=== PATIENT | female | born 1985 | race Caucasian/White ===

== ENCOUNTER 2019-11-04 13:27 | Emergency (ER) | payer BC, OTHER, SELFPAY ==
[2019-11-04 13:35] VITALS: BP 159/111; PULSE 126; RESP 18; TEMP 36.9; O2SAT 98; BMI 32.5
--- NOTE | 2019-11-04 14:14 | HMH.EDEAR ---
ED Disposition Clinical Impression: Otitis media Disposition: Home, Self-Care Condition on Discharge: Good Instructions: DI for Otitis Media (Middle Ear Infection)-Child Prescriptions: Amoxicillin/Potassium Clav [Augmentin 875-125 Tablet] 1 tab PO Q12H 10 Days #20 tab Prescription Printed Ketorolac Tromethamine [Toradol 10mg tablet] 10 mg PO Q4H 5 Days #20 tab Prescription Printed Referrals: Tatiana Moses APRN [Primary Care Provider] - - Critical Care Critical Care Time: No Attestation: On 11/04/19, the high probability of a clinically significant, sudden or life threatening deterioration of the following system(s) required my full and direct attention, intervention and personal management. The time I documented below is in addition to time spent performing reported procedures but includes the following listed in this critical care notation. Medical Decision Making - Medical Records Medical records reviewed: Yes: I reviewed the patient's medical records. - Yunier Inquiry Pt receiving controlled substance: No Vital Signs: 11/04/19 13:35 Temperature 98.4 F Temperature Source Oral Pulse Rate [Right Radial] 126 H Respiratory Rate 18 Blood Pressure [Right Arm] 159/111 H Blood Pressure Mean [Right Arm] 127 Blood Pressure Source [Right Arm] Automatic Cuff Blood Pressure Position [Right Arm] Sitting 02 Sat by Pulse Oximetry 98 Oxygen Delivery Method Room Air - Lab Data Lab results reviewed: Yes: I reviewed the patient's lab results. Ear HPI - General Chief complaint: Ear Stated complaint: severe R ear pain and nausea Time Seen by Provider: 11/04/19 14:15 Mode of Arrival: Ambulatory Source of Information: Patient Limitations: No Limitations Description of Symptoms (Recalled from ER Triage Doc. by RN): Pt c/o R ear pain x4 days and nauesa x2 days. Pt reports her ear feels clogged up - History of Present Illness HPI Narrative: 34-year-old female presents the ED with excessive right ear pain. She states that the ear pain started couple days ago and is progressively gotten worse until she presented here to the ED. Patient denies any fever patient denies any nausea or vomiting patient denies any sore throat or cough or shortness of breath. She states that the ear pain is 7 out of 10 classifies it as sharp. She also states that she has decreased hearing in that ear as well. She says the only alleviating factor she gets is applying heat directly to the ear. - Related Data Home Medications Medication Instructions Recorded Confirmed Amitriptyline HCl [Elavil 50mg 50 mg PO DAILY 11/04/19 11/04/19 tablet] Pregabalin [Lyrica 300mg Cap] 300 mg PO BID 11/04/19 11/04/19 Quetiapine Fumarate [Seroquel] 100 mg PO HS 11/04/19 11/04/19 Previous Rx's Medication Instructions Recorded Amoxicillin/Potassium Clav 1 tab PO Q12H 10 Days #20 tab 11/04/19 [Augmentin 875-125 Tablet] Ketorolac Tromethamine [Toradol 10 mg PO Q4H 5 Days #20 tab 11/04/19 10mg tablet] Allergies Allergy/AdvReac Type Severity Reaction Status Date / Time No Known Allergies Allergy Unverified 07/12/18 12:18 [facility] History - Hepatitis A Screen Drug use history?: No High risk sexual behaviors?: No History of sexually transmitted infection?: No Currently employed?: No Childcare worker?: No Do you have indoor plumbing?: Yes Do you have electricity?: Yes Attestation statement:: This patient has been screened for Hepatitis A risk factors. I have reviewed the patient's past medical history: Yes Medical History: Denies:: Diabetes Mellitus Type 1, Diabetes Mellitus Type 2 Other Surgeries: Yes: No Previous Surgery - Social History Smoking Status: Current every day smoker Tobacco Type: cigarettes # Packs/Day (cigarettes): 10 Alcohol Intake: never Substance Use Type: former substance user Occupational Status: employed Housing: house Household Members: family Family Hx:: Cancer, Hypertensi
[2019-11-04 14:52] VITALS: BP 159/111; PULSE 126; RESP 18; TEMP 36.9; O2SAT 98
== END 2019-11-04 14:52 | disposition home or self-care (01) ==
PROVIDERS: Emergency Provider Family Medicine; PCP Nurse Practitioner
DX: H66.91 Otitis media, unspecified, right ear (principal); F17.210 Nicotine dependence, cigarettes, uncomplicated
CPT/HCPCS: 96372; 99281

== ENCOUNTER → 2019-12-17 12:49 | Outpatient (POV) | payer BC, OTHER, SELFPAY ==
[2019-12-17 13:26] VITALS: BP 185/89; PULSE 118; RESP 18; TEMP 36.8; O2SAT 99; BMI 34.0
--- NOTE | 2019-12-18 08:52 | HMH.PMCON ---
Assessment and Plan (1) Neuropathy Current visit: Yes Status: Chronic Category: Medical Code(s): G62.9 - Polyneuropathy, unspecified - Assessment and plan all Dx Assessment and Plan for all problems:: I will try to get some neurology notes from the patient and along with her nerve conduction study. We will need additional information to talk about a neurostimulator. I did give her information in regards to Bench neurostimulator system. We will also schedule her for an MRI just to help determine any underlying pathology. I will follow-up with the patient after her MRI reassess her symptoms at that time she is been instructed to call the office if she has any issues prior to her next appointment. Dr. Day has reviewed this note and agrees with this plan of care. This note was dictated using voice recognition software and may contain errors or omissions HPI - Data of Consult Consult date: 12/17/19 Requesting Physician: Tawnya Gordon APRN Primary Care Provider: Derrick Beltran MD - Consult Narrative Reason for consult: Neuropathy History of present illness: Ms. Cortes is a 34 year old female who presents today for consultation in regards to her bilateral lower extremity and bilateral upper extremity neuropathy. Patient has quite a myriad of issues for several years. Patient states she has had pain since 2012. She had a fasciotomy of her right leg. Patient had a heroin overdose several years ago. Patient states that she is not diabetic she also states that she has been seeing neurology for quite some years in regards to her nerve related pain she states she has a nerve conduction study however she does not have those records. Patient has never had an MRI according to her in regards to her lower back. Patient states most of her pain is in her lower extremities from the knees down she has burning numbness tingling swelling. She is also having the same issue in regards to her neck and her bilateral arms patient currently on Lyrica from Dr. Shaina Alvarenga. She states that she has been up to over 900 mg of Lyrica a day. I do not have records in regards to this. Patient is also been on [place] from her dentist several times a month since September. CC: Tawnya Gordon APRN [facility] History I have reviewed the patient's past medical history: Yes Medical History: Denies:: Diabetes Mellitus Type 1, Diabetes Mellitus Type 2 *Have you ever received a pneumonia vaccine?: Yes *Have you received a flu vaccine this season?: Yes Other Surgeries: Yes: No Previous Surgery Amputation: No Fractures: No - *Social History Smoking Status: Current every day smoker Tobacco Type: cigarettes # Packs/Day (cigarettes): 10 Alcohol Intake: never Substance Use Type: former substance user *Occupational Status:: other Housing: house Household Members: other *Travel in the last 8 weeks: None Family Hx:: Unable to obtain Review of Systems - Review of Systems ROS General: no recent weight change, no fever, no sleep disturbances Respiratory: no cough, no shortness of air, no recurring pulmonary infections Cardiovascular/Peripheral Vascular: No chest pain, No palpitations, no edema, no shortness of breath. Gastrointestinal: no new onset incontinence, normal bowel movements reported Genitourinary: no new onset incontinence Musculoskeletal: Bilateral leg pain Psychiatric: normal mood/ affect, Neurological: Nerve pain bilateral lower extremities and bilateral upper extremities, [denies new onset balance issues] Meds Home Medications Medication Instructions Recorded Confirmed Type Amitriptyline HCl [Elavil 50mg 50 mg PO DAILY 11/04/19 11/04/19 History tablet] Amoxicillin/Potassium Clav 1 tab PO Q12H 10 Days #20 tab 11/04/19 Rx [Augmentin 875-125 Tablet] Ketorolac Tromethamine [Toradol 10 mg PO Q4H 5 Days #20 tab 11/04/19 Rx 10mg tablet] Pregabalin [Lyrica 300mg Cap] 300 mg PO BID 11/04/19
== END ==
PROVIDERS: PCP Internal Medicine Adolescent Medicine; Visit Provider Clinical Nurse Specialist Family Health
DX: G62.9 Polyneuropathy, unspecified (principal)
CPT/HCPCS: 99202

== ENCOUNTER → 2020-01-03 13:40 | Outpatient (CLI) | payer OTHER, SELFPAY ==
--- NOTE | 2020-01-03 13:45 | MR_ITS ---
PROCEDURE: MR LUMBAR SPINE WO CON CLINICAL INDICATION: BACK PAIN Leg pain, numbness, and tingling. X 8 years. No trauma. No prior. COMPARISON: No exams were available for comparison TECHNIQUE: Standard multiplanar multiecho sequences are performed without contrast. 3-D MIP and myelographic images are also rendered and reviewed FINDINGS: There is normal alignment. The spinal cord ends at the T11-T12 level. T12-L1: Small right paracentral disc protrusion with mild degenerative disc disease without impingement. L1-L2: Mild endplate irregularity. Mild degenerative disc disease. L2-L3: Unremarkable. L3-L4: Unremarkable. L4-5: Minimal concentric bulging disc with mild facet ligamentum hypertrophy. L5-S1: Mild facet hypertrophic change. No canal stenosis or extruded herniated disc evident. IMPRESSION: Mild lumbar spondylosis as described above with small right paracentral disc protrusion at T12-L1. No canal stenosis or extruded herniated disc. Dictated by: Lance Barron MD 01/05/2020 12:06 Electronically signed by Lance Barron MD in [place] 01/05/2020 12:06
== END ==
PROVIDERS: PCP Internal Medicine Adolescent Medicine; Visit Provider Clinical Nurse Specialist Family Health
DX: M54.5 Low back pain (principal)
CPT/HCPCS: 72148; 76376

== ENCOUNTER → 2020-01-07 09:07 | Outpatient (POV) | payer OTHER, BC, SELFPAY ==
[2020-01-07 09:20] VITALS: BP 158/82; PULSE 112; RESP 18; TEMP 36.2; O2SAT 98; BMI 32.5
--- NOTE | 2020-01-07 09:25 | HMH.PAINSOAP ---
[facility] Pain Management SOAP Note Subjective:: Patient is a pleasant 34-year-old white female who presents today for follow-up after lumbar MRI. The MRI did have some degenerative type changes and minimal bulging disks. Patient's main complaint of pain is her lower extremity pain. Worse on the right side. Patient has been struggling with pain since her 2014 fasciotomy. Patient had this secondary to compartment syndrome in her right leg. Patient has numbness tingling burning at all times in her lower extremity and also has swelling color changes and temperature changes to that extremity as well. Patient has allodynia where she is unable to have certain clothing or shower water touch her leg. Patient and I had a long discussion about neuro stimulation. She is interested in moving forward with this. I do believe that it would benefit her long-term. Given her age and drug history she is not a candidate for any other additional medications nor an intrathecal pain pump. But she has tried and failed over the last 6 years Lyrica/gabapentin/Cymbalta/amitriptyline/Seroquel. She rates her pain today a 6 out of 10. She has abnormal nerve conduction studies. ROS General: no recent weight change, no fever, no sleep disturbances Respiratory: no cough, no shortness of air, no recurring pulmonary infections Cardiovascular/Peripheral Vascular: No chest pain, No palpitations, no edema, no shortness of breath. Gastrointestinal: no new onset incontinence, normal bowel movements reported Genitourinary: no new onset incontinence Musculoskeletal: Right lower extremity pain, left lower extremity pain at times Psychiatric: normal mood/ affect Neurological: [denies new onset weakness in extremities], [denies new onset balance issues] extreme sensitivity right lower extremity Objective:: Physical Exam General: Alert and oriented x3, no acute distress, pleasant and cooperative, [on room air] Lungs: Resps E/U, Symmetrical chest expansion, Eyes: PERRL Musculoskeletal: Flexion and extension of lumbar spine somewhat guarded secondary to pain, deep tendon reflexes normal, strength in upper and lower extremities [5/5], antalgic gait noted Neurological: speech clear, 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 Patient and I had a long discussion in regards to the process in which a neurostimulator trial and implant takes. Patient's not on any anticoagulation therapy. She understands the risks and benefits of the procedure. I will follow-up with her after this reassess her symptoms at that time she has been instructed to call the office if she has any issues prior to next appointment. We will utilize a [employer] system. Dr. Day has reviewed this note and agrees with this plan of care. This note was dictated using voice recognition software and may contain errors or omissions [facility] History I have reviewed the patient's past medical history: Yes Medical History: Denies:: Diabetes Mellitus Type 1, Diabetes Mellitus Type 2 *Have you ever received a pneumonia vaccine?: Yes *Have you received a flu vaccine this season?: Yes Other Surgeries: Yes: No Previous Surgery Amputation: No Fractures: No - *Social History Smoking Status: Current every day smoker Tobacco Type: cigarettes # Packs/Day (cigarettes): 10 Alcohol Intake: never Substance Use Type: former substance user *Occupational Status:: other Housing: house Household Members: other *Travel in the last 8 weeks: None Family Hx:: Unable to obtain
== END ==
PROVIDERS: PCP Internal Medicine Adolescent Medicine; Visit Provider Clinical Nurse Specialist Family Health
DX: G90.521 Complex regional pain syndrome I of right lower limb (principal); G62.9 Polyneuropathy, unspecified
CPT/HCPCS: 99212

== ENCOUNTER → 2020-01-21 15:21 | Outpatient (CLI) | payer BC, OTHER, SELFPAY ==
--- NOTE | 2020-01-21 15:22 | US_ITS ---
PROCEDURE: US TRANSVAGINAL CLINICAL INDICATION: Right lower quadrant pain COMPARISON: No exams were available for comparison FINDINGS: UTERUS: 6cm x 4cmx 4cm with a combined endometrial thickness of 2.7mm LEFT OVARY: [id number] with a volume of 5.2ml. RIGHT OVARY: [id number] with a volume of 2.9ml. No adnexal mass or cul-de-sac fluid evident. IMPRESSION: Negative pelvic ultrasound Dictated by: Lance Barron MD 01/22/2020 07:33 Electronically signed by Lance Barron MD in [place] 01/22/2020 07:33
== END ==
PROVIDERS: PCP Internal Medicine Adolescent Medicine; Visit Provider Nurse Practitioner Obstetrics & Gynecology
DX: R10.31 Right lower quadrant pain (principal)
CPT/HCPCS: 76830

== ENCOUNTER 2020-02-13 15:23 | Emergency (ER) | payer OTHER, SELFPAY ==
[2020-02-13 15:29] VITALS: BP 162/111; PULSE 128; RESP 17; TEMP 37.2; O2SAT 96; BMI 34.0
--- NOTE | 2020-02-13 15:45 | HMH.EDUTC ---
[facility] Disposition Clinical Impression: Viral syndrome, Bronchitis Disposition: Home, Self-Care Condition on Discharge: Good Instructions: DI for Viral Syndrome Additional Instructions: Drink plenty of fluids. Take tylenol or ibuprofen for pain or fever. Take the medications as directed. Follow up with your regular doctor. GO TO THE ER FOR ANY WORSENING SYMPTOMS FOLLOW THE DIRECTIONS ON THE COVID-19 HAND OUT THAT WE GAVE YOU REGARDING SELF-ISOLATION UNTIL YOU KNOW YOUR COVID-19 RESULTS Prescriptions: Brompheniramine/Pseudoephed/Dm [Bromfed Dm Cough Syrup] 5 ml PO Q6HP PRN #240 syrup PRN Reason: Cough Transmission Status: Received by [facility] Ondansetron [Zofran 4mg ODT] 4 mg PO Q8HP PRN #20 tab.rapdis PRN Reason: Nausea Transmission Status: Received by [facility] Azithromycin [Z-Nando 250mg Tab*] 250 mg PO UD DOSE PK #6 tab Transmission Status: Received by [facility] Referrals: Derrick Beltran MD [Primary Care Provider] - Forms: Work/School Release Time of Disposition: 16:32 Medical Decision Making - Medical Records Medical records reviewed: No: I reviewed the patient's medical records. - Yunier Inquiry Pt receiving controlled substance: No Vital Signs: 02/13/20 15:29 02/13/20 15:53 02/13/20 16:59 Temperature 98.9 F 98.9 F 98.9 F Temperature Source Oral Oral Pulse Rate 127 H Pulse Rate [Right Brachial] 128 H 127 H Respiratory Rate 17 24 24 Blood Pressure 146/94 H Blood Pressure [Right Arm] 162/111 H 146/94 H Blood Pressure Mean [Right Arm] 128 111 Blood Pressure Source [Right Arm] Automatic Cuff Blood Pressure Position [Right Arm] Sitting 02 Sat by Pulse Oximetry 96 97 Oxygen Delivery Method Room Air Room Air - Lab Data Lab results reviewed: Yes: I reviewed the patient's lab results. Orders (Tests/Meds): ED MEDICATIONS Discontinued Medications Generic Name Dose Route Start Last Admin Trade Name Freq PRN Reason Stop Dose Admin Ceftriaxone Sodium 1 gm 02/13/20 16:32 02/13/20 16:46 Rocephin 1gm Vial IM 02/13/20 16:33 1 gm ONCE ONE Administration Protocol Lidocaine HCl 0 ml 02/13/20 16:32 02/13/20 16:46 Lidocaine 1% 10ml Mdv IM 02/13/20 16:33 2.1 ml ONCE ONE Administration [facility] HPI - General Stated complaint: Sore throat, sinus congestion Time Seen by Provider: 02/13/20 15:45 Mode of Arrival: Ambulatory Source of Information: Patient Limitations: No Limitations Description of Symptoms (Recalled from Triage Doc. by RN): pt presents to ed triage with c/o cough, congestion, body aches and overall not feeling well since tuesday. no known covid exposure. - History of Present Illness Provider Complaint: She c/o sinus congestion, cough, and feeling very bad for the past 3 days. - Related Data Home Medications Medication Instructions Recorded Confirmed Amitriptyline HCl [Elavil 50mg 50 mg PO DAILY 11/04/19 01/10/20 tablet] Pregabalin [Lyrica 300mg Cap] 300 mg PO BID 11/04/19 01/10/20 Quetiapine Fumarate [Seroquel] 100 mg PO HS 11/04/19 01/10/20 duloxetine 60 mg capsule,delayed 60 mg PO cap 01/10/20 01/10/20 release Previous Rx's Medication Instructions Recorded ketorolac 10 mg tablet 10 mg PO Q6H 5 Days #20 tab 01/25/20 Azithromycin [Z-Nando 250mg Tab*] 250 mg PO UD DOSE PK #6 tab 02/13/20 Brompheniramine/Pseudoephed/Dm 5 ml PO Q6HP PRN #240 syrup 02/13/20 [Bromfed Dm Cough Syrup] Ondansetron [Zofran 4mg ODT] 4 mg PO Q8HP PRN #20 tab.rapdis 02/13/20 Allergies Allergy/AdvReac Type Severity Reaction Status Date / Time No Known Allergies Allergy Verified 01/10/20 08:48 [facility] History - Hepatitis A Screen Attestation statement:: This patient has been screened for Hepatitis A risk factors. I have reviewed the patient's past medical history: Yes Medical History: Denies:: Diabetes Mellitus Type 1, Diabetes Mellitus Type 2 Other Surgeries: Yes: No Prev
[2020-02-13 15:53] VITALS: BP 146/94; PULSE 127; RESP 24; TEMP 37.2; O2SAT 97; BMI 34.0
--- NOTE | 2020-02-13 15:58 | XR_ITS ---
PROCEDURE: XR CHEST 2V CLINICAL HISTORY: COUGH COMPARISON: CR CXR1 CHEST-PORTABLE from 03/13/2014 CR CXR1 CHEST-PORTABLE from 05/22/2014 FINDINGS: The cardiomediastinal silhouette and pulmonary vascularity are within normal limits. No lobar consolidation or collapse is evident. There is increased linear markings in the lung base anteriorly suggesting atelectatic or fibrotic change No acute bony abnormalities. IMPRESSION: Minimal atelectatic or fibrotic change in the lung base anteriorly otherwise negative Dictated by: Lance Barron MD 02/13/2020 16:49 Lance Barron MD in [place] 02/13/2020 16:49
[2020-02-13 16:59] VITALS: BP 146/94; PULSE 127; RESP 24; TEMP 37.2; O2SAT 97
== END 2020-02-13 17:02 | disposition home or self-care (01) ==
PROVIDERS: Emergency Provider Nurse Practitioner Family; PCP Internal Medicine Adolescent Medicine
DX: J20.9 Acute bronchitis, unspecified (principal); B34.9 Viral infection, unspecified; Z20.828 Contact with and (suspected) exposure to other viral communicable diseases; F17.210 Nicotine dependence, cigarettes, uncomplicated
CPT/HCPCS: 71046; 96372; 99202; U0003

== ENCOUNTER → 2020-03-24 10:00 | Outpatient (CLI) | payer OTHER, SELFPAY ==
--- NOTE | 2020-03-24 10:10 | XR_ITS ---
PROCEDURE: XR HIP LT 2-3V W/PELVIS CLINICAL INDICATION: left hip pain COMPARISON: No exams were available for comparison FINDINGS: There is some decrease in the hip joint space on both sides which may be due to mild osteoarthritic change. Sclerosis is noted in the left femoral head on the abduction ule view. No obvious subchondral lucencies evident. No fracture or dislocation. IMPRESSION: Minimal osteoarthritic change. There is some. Sclerosis of the femoral head on the left on the abduction ule view. This does raises suspicion of possible avascular necrosis. Consider MRI for further evaluation P Dictated by: Lance Barron MD 03/24/2020 17:32 Lance Barron MD in [place] 03/24/2020 17:32
== END ==
LOC: RAD 10:05
PROVIDERS: PCP Internal Medicine Adolescent Medicine; Visit Provider Orthopaedic Surgery
DX: M25.552 Pain in left hip (principal)
CPT/HCPCS: 73502

== ENCOUNTER → 2020-04-22 13:02 | Outpatient (CLI) | payer OTHER, SELFPAY ==
--- NOTE | 2020-04-22 13:09 | MR_ITS ---
PROCEDURE: MR HIP LT W CON CLINICAL INDICATION: LT hip pain LEFT HIP PAIN WITH BENDING AND TWISTING X6 MONTHS, COMPARISON: CR XR HIP LT 2-3V W/PELVIS from 03/24/2020 DX,RF IR ARTHROGRAM HIP LT from 04/22/2020 TECHNIQUE: Routine multiplanar multi echo sequences are performed following the intra-articular injection of contrast under fluoroscopic guidance. Please see arthrogram report for technique description FINDINGS: The on the T1 weighted images there is some nonspecific decreased signal along the cortex of the femoral head anteriorly and superiorly suggesting some mild sclerosis of the cortex. This is of questionable clinical significance and is not a typical appearance for avascular necrosis. The T2 signal is unremarkable. No fracture or dislocation is evident. There are minimal osteoarthritic changes with minimal early spurring along the femoral head. There is an abnormal area of signal intensity involving the basicervical/intertrochanteric portion of the femoral neck which is mostly hypointense on the T1 weighted images and hyperintense on the T2/stir images with a central nidus of decrease T2 signal intensity. The lesion itself measures 13 mm with a central nidus measuring 5 mm. No obvious labral tear. Incidental note is made of a 3 cm left ovarian cyst. IMPRESSION: 1. The no convincing evidence of avascular necrosis. 2. There is nonspecific decreased T1 signal along the femoral head superiorly and anteriorly which may correspond to bony sclerosis. This is of questionable clinical significance 3. 13 mm stellate appearing mostly cystic lesion in the basicervical/intertrochanteric region of the left femur with a central area of decreased T2 signal. The etiology is uncertain. An osteoid osteoma is a consideration. This could be confirmed with CT and bone scan if clinically desired. Follow-up is suggested. 4. 3 cm left ovarian cyst Dictated by: Lance Barron MD 04/25/2020 10:00 Lance Barron MD in [place] 04/25/2020 10:00
--- NOTE | 2020-04-22 13:15 | IR_ITS ---
PROCEDURE: IR ARTHROGRAM HIP LT CLINICAL INDICATION: L HIP PAIN COMPARISON: MR MR HIP LT W CON from 04/22/2020 FINDINGS: Following obtaining informed consent and time-out procedure under aseptic conditions and local anesthesia with 1 percent buffered lidocaine, a 20 gauge spinal needle was inserted into the left hip joint capsule at the upper femoral neck anterior approach. Approximately 12 cc of a mixture gadolinium, Optiray, and lidocaine was injected into the joint capsule with adequate position. The patient tolerated the procedure well without evidence of immediate complication. Neutral and abduction ule views were obtained showing adequate localization of contrast. No fracture or dislocation.. The patient was then taken to the MRI suite where MR arthrogram protocol was performed. IMPRESSION: Uneventful an unremarkable left hip arthrogram with fluoroscopic guidance Please see MR arthrogram report for further detail Dictated by: Lance Barron MD 04/25/2020 10:03 Lance Barron MD in [place] 04/25/2020 10:03
== END ==
PROVIDERS: PCP Internal Medicine Adolescent Medicine; Visit Provider Orthopaedic Surgery
DX: M25.552 Pain in left hip (principal)
CPT/HCPCS: 27095; 77002; 73525; 73722; Q9967

== ENCOUNTER 2020-06-16 14:36 | Emergency (ER) | payer OTHER, SELFPAY ==
[2020-06-16 14:40] VITALS: BP 146/92; PULSE 87; RESP 19; TEMP 36.9; O2SAT 98; BMI 34.0
--- NOTE | 2020-06-16 14:52 | HMH.EDUTC ---
[facility] [place] Clinical Impression: Viral syndrome, Encounter for laboratory testing for COVID-19 virus Disposition: Home, Self-Care Condition on Discharge: Good Instructions: DI for COVID-19 (Suspected or Confirmed ), COVID-19 Viral Test, COVID-19: Testing and Tracing, Preventing the Spread of Coronavirus Discharge Instructions, DI for Viral Upper Respiratory Infection -- Adult Additional Instructions: *Monitor Temp, Over the counter Motrin or Tylenol as directed/as needed Tylenol every 4 hours and Motrin every 6 hours (as long as your family doctor has told you that you can take it) for fever or pain. and straight to ER if unable to lower temp less than 101.0 after medication given *Warm salt water gargles may help to soothe the throat *Throat Lozenges *Warm fluids like tea with honey may help to soothe the throat *Sleep elevated *Humidifier/Vaporizer Follow up IMMEDIATELY for new or worsening symptoms or no Noticeable improvement over the next 48-72 hours. 911 for difficulty breathing or swallowing You were tested for today for COVID19 your test result should be back in the next 24-48 hours, you may call to the [facility] to see if your test results are back in the next 48 hours [phone] [facility] hours are 9am-9pm You was given a handout with instructions for Self Quarantine and Self isolation for while you wait on test results and what to do if they are positive If you are positive the Health Dept will be contacting you also Referrals: Derrick Beltran MD [Primary Care Provider] - As needed Forms: Work/School Release Time of Disposition: 15:07 Medical Decision Making - Yunier Inquiry Pt receiving controlled substance: No Yunier was queried for this patient: No Vital Signs: 06/16/20 14:40 Temperature 98.4 F Temperature Source Oral Pulse Rate [Right Brachial] 87 Respiratory Rate 19 Blood Pressure [Right Arm] 146/92 H Blood Pressure Mean [Right Arm] 110 Blood Pressure Source [Right Arm] Automatic Cuff Blood Pressure Position [Right Arm] Sitting 02 Sat by Pulse Oximetry 98 Oxygen Delivery Method Room Air - Lab Data Lab Results 06/16/20 14:51: Influenza Type A Ag Negative, Influenza Type B Ag Negative Orders (Tests/Meds): ORDERS Category Date Time Status Covid-19 Nasal PCR Sendout P&C Stat Lab 06/16/20 14:50 Received [facility] [place] - General Stated complaint: dizzy, cough,headache Time Seen by Provider: 06/16/20 14:52 Mode of Arrival: Ambulatory Source of Information: Patient Limitations: No Limitations Description of Symptoms (Recalled from Triage Doc. by RN): PATIENT C/O NO TASTE, COUGH, FATIGUE, AND BODY ACHES X 3 DAYS HEENT Symptoms (Recalled from RN notes): No Resp Symptoms (Recalled from RN notes): Yes Skin Symptoms (Recalled from RN notes): No MS Symptoms (Recalled from RN notes): Yes Functional Status (Recalled from RN notes): WNL - History of Present Illness Provider Complaint: Patient states that she started feeling bad on Tuesday with chills, headache and body aches States that on Tuesday she loss her sense of taste and has continued to feel worse State that today she was still having body aches, chills and headache and still unable to taste anything so she come in to get checked - Related Data Home Medications Medication Instructions Recorded Confirmed Amitriptyline HCl [Elavil 50mg 50 mg PO DAILY 11/04/19 05/01/20 tablet] Pregabalin [Lyrica 300mg Cap] 300 mg PO BID 11/04/19 05/01/20 Quetiapine Fumarate [Seroquel] 100 mg PO HS 11/04/19 05/01/20 duloxetine 60 mg capsule,delayed 60 mg PO cap 01/10/20 05/01/20 release Previous Rx's Medication Instructions Recorded ketorolac 10 mg tablet 10 mg PO Q6H 5 Days #20 tab 01/25/20 Brompheniramine/Pseudoephed/Dm 5 ml PO Q6HP PRN #240 syrup 02/13/20 [Bromfed Dm Cough Syrup] Ondansetron [Zofran 4mg ODT] 4 mg PO Q8HP PRN #20 tab.rapdis 02/13/20 Allergies Allergy/AdvReac Type Severity Reaction Status Date / Time N
[2020-06-16 15:01] LABS: UTC Influenza A Antigen Negative (Negative); UTC Influenza B Antigen Negative (Negative)
[2020-06-16 15:08] VITALS: BP 146/92; PULSE 87; RESP 19; TEMP 36.9; O2SAT 98
[2020-06-17 12:39] LABS: Covid-19 Nasal PCR Sendout P&C NEGATIVE
== END 2020-06-16 15:10 | disposition home or self-care (01) ==
PROVIDERS: Emergency Provider Nurse Practitioner; PCP Internal Medicine Adolescent Medicine
DX: Z20.828 Contact with and (suspected) exposure to other viral communicable diseases (principal); B34.9 Viral infection, unspecified; F17.210 Nicotine dependence, cigarettes, uncomplicated
CPT/HCPCS: 87804; 99201; U0004

== ENCOUNTER 2020-06-30 16:04 | Observation (INO) | payer BC, SELFPAY ==
[2020-06-30 16:16] VITALS: BMI 36.1
--- NOTE | 2020-06-30 16:54 | PC.NURSE ---
DR. MESA AWARE OF CONSULT.
--- NOTE | 2020-06-30 17:13 | HMH.HP ---
*Admission Date: 06/30/20 *Chief complaint: Left breast abscess *History of present illness: 34-year-old white female with history of peripheral neuropathy and left-sided hip pain, related to an incident resulting in severe rhabdomyolysis and lower extremity compartment syndrome requiring lengthy hospital stay at [facility] many years ago, who has done a very nice job recovering and is doing very well overall, who came to my office on the day of admission with 3 days of left lower breast swelling. She notes no trauma, pain, is not actively nursing, no breast lumps or masses palpable. Found to have significantly swollen and abscess formation underneath the left breast, given the size and location of the abscess it was deemed it would need to to be evaluated and treated with surgical drainage. Patient was admitted to hospital for intravenous antibiotics, pain control and surgical consultation. [facility] History I have reviewed the patient's past medical history: Yes Medical History: Reports:: Depression Denies:: Diabetes Mellitus Type 1, Diabetes Mellitus Type 2 *Have you ever received a pneumonia vaccine?: No *Have you received a flu vaccine this season?: No Comment:: Peripheral neuropathy from rhabdomyolysis and compartment syndrome episode many years ago, on chronic Lyrica Other Surgeries: Yes: , Sinus SurgeryComment Only: Other (fasciotomy right leg) Amputation: No Fractures: No - *Social History Last grade of school completed: Some college Smoking Status: Current every day smoker Tobacco Type: cigarettes # Packs/Day (cigarettes): 1 Alcohol Intake: never Alcohol Intake Frequency:: other Substance Use Type: former substance user *Occupational Status:: employed Housing: apartment Household Members: children *Travel in the last 8 weeks: None Family Hx:: Unable to obtain Review of Systems - Review of Systems Review of systems:: pertinent systems reviewed and negative unless documented below Meds Home Medications Medication Instructions Recorded Confirmed Type Pregabalin [Lyrica 300mg Cap] 300 mg PO BID 11/04/19 06/30/20 History Quetiapine Fumarate [Seroquel] 100 mg PO HS 11/04/19 06/30/20 History duloxetine 60 mg capsule,delayed 60 mg PO HS cap 01/10/20 05/01/20 History release Ketorolac Tromethamine [Toradol 10 mg PO Q6H 06/30/20 06/30/20 History 10mg tablet] Allergies Allergy/AdvReac Type Severity Reaction Status Date / Time No Known Allergies Allergy Verified 05/01/20 10:33 Exam I & O for Last 24 hours: Intake & Output 06/28/20 06/29/20 06/30/20 07/01/20 11:59 11:59 11:59 11:59 Weight 245 lb - *Routine HEENT Exam Head: Present: normocephalic Eye: Present: EOMI, PERRL ENT: Present: mucous membranes moist - *Routine Neck Exam Present: supple. Absent: lymphadenopathy - Routine Chest/Breast/Axilla Exam Chest wall: Present: tenderness, mass Breast: Present: induration Comments: Large, 8 to 10 cm indurated painful and fluctuant abscess underneath the left breast. No evidence of nipple discharge. No evidence of axillary lymphadenopathy but exquisite tenderness makes exam fairly difficult. - *Routine Respiratory Exam Present: CTA bilaterally - *Routine Cardiovascular Exam Present: RRR - *Routine Abdominal Exam Present: soft, normoactive bowel sounds. Absent: tenderness - *Routine Extremities Exam Absent: cyanosis, clubbing, edema - *Routine Skin Exam Present: warm. Absent: rash - *Routine Neurological Exam Present: alert, oriented X3 Previously noted sensory loss and hyper paresthesias in both legs below the knees. No current skin lesions Assessment and Plan (1) Chest wall abscess Status: Acute Category: Medical Code(s): L02.213 - Cutaneous abscess of chest wall - Assessment and plan all Dx Assessment and Plan for all problems:: Given size, location and presentation of lesion this needs to be surgically drained. Admit to hospital,
[2020-06-30 17:22] VITALS: BP 143/80; PULSE 104; RESP 21; TEMP 36.8; O2SAT 98
--- NOTE | 2020-06-30 18:04 | PC.NURSE ---
Spoke with pharmacy for vanc dosing. Advised to get 2g loading dose of vancomycin and page pharmacy when the patients labs are in to determine kidney function.
[2020-06-30 18:13] LABS: Basophils # 0.1 K/mm3 (0-0.2); Basophils % 0.9 % (0.1-2.0); Eosinophils # 0.2 K/mm3 (0.0-0.4); Eosinophils % 1.7 % (0.1-12.0); Hematocrit 47.1 % (37.0-47.0); Lymphocytes # 3.2 K/mm3 (0.7-4.5); Lymphocytes % 24.9 % (10-50); Mean Corpuscular HGB Conc 33.9 g/dL (31.8-35.4); Mean Corpuscular Hemoglobin 31.7 pg (27.0-31.2); Mean Corpuscular Volume 93.5 fl (81-99); Mean Platelet Volume 8.6 fl (7.4-10.4); Monocytes # 0.6 K/mm3 (0.1-1.0); Monocytes % 4.7 % (1.7-9.3); Neutrophils # 8.7 K/mm3 (1.8-7.8); Neutrophils % 67.8 % (37.0-80.0); Platelet Count 256 K/mm3 (142-424); Red Blood Count 5.03 M/mm3 (4.20-5.40); Red Cell Distribution Width 14.3 % (11.5-17.5); White Blood Count 12.8 K/mm3 (4.8-10.8)
[2020-06-30 18:16] LABS: Chloride 98 mmol/L (98-107)
[2020-06-30 18:17] LABS: Potassium 3.5 mmoL/L (3.5-5.1); Sodium 134 mmol/L (136-145)
[2020-06-30 18:19] LABS: Alanine Aminotransferase 151 U/L (12-78); Alkaline Phosphatase 178 U/L (38-126); Anion Gap 10.5 mEq/L (5-15); Aspartate Amino Transferase 107 U/L (14-36); Bilirubin,Total 0.9 mg/dl (0.2-1.3); Blood Urea Nitrogen 5 mg/dl (7-17); Carbon Dioxide 29 mmol/L (22.0-30.0); Creatinine Clearance Estimated 344 mL/min (50-200); Estimated Glomerular Filt Rate 182 ml/min (>60); GFR (African American) 220 ML/MIN (>60)
[2020-06-30 18:20] LABS: Albumin Level 4.3 g/dl (3.5-5.0); Albumin/Globulin Ratio 1.3 (1.1-1.8); Calcium 9.5 mg/dl (8.4-10.2); Globulin 3.2 g/dL (1.3-3.2); Glucose 351 mg/dl (74-100); Total Protein,Serum 7.5 g/dl (6.3-8.2)
--- NOTE | 2020-06-30 19:01 | HMH.GSCON ---
*Admission Date: 06/30/20 *Reason for consult:: left breast abscess *History of present illness: This is a 34yo female seen in consultation from Dr. Beltran for evaluation of a left breast abscess. She states that she has developed worsening swelling, redness, and pain of the left breast over the last 3-5 days. Forwarded from admission H&P: 34-year-old white female with history of peripheral neuropathy and left-sided hip pain, related to an incident resulting in severe rhabdomyolysis and lower extremity compartment syndrome requiring lengthy hospital stay at [facility] many years ago, who has done a very nice job recovering and is doing very well overall, who came to my office on the day of admission with 3 days of left lower breast swelling. She notes no trauma, pain, is not actively nursing, no breast lumps or masses palpable. Found to have significantly swollen and abscess formation underneath the left breast, given the size and location of the abscess it was deemed it would need to to be evaluated and treated with surgical drainage. Patient was admitted to hospital for intravenous antibiotics, pain control and surgical consultation. Review of Systems - Constitutional Denies chills - Eyes Denies change in vision - ENT Denies difficulty swallowing - *Cardiovascular Denies chest pain - *Respiratory Denies cough - *Gastrointestinal Denies abdominal pain - *Genitourinary Denies blood in urine - *Musculoskeletal Reports body aches - Integumentary/Breasts Reports boil - *Neurologic Denies confusion - Psychiatric Denies anxiety - Endocrine Denies cold intolerance - Hematologic/Lymphatic Denies easy bleeding - Allergic/Immunologic Denies wheezing [facility] History Medical History: Reports:: Depression Denies:: Diabetes Mellitus Type 1, Diabetes Mellitus Type 2 *Have you ever received a pneumonia vaccine?: No *Have you received a flu vaccine this season?: No Other Surgeries: Yes: No Previous Surgery, , Sinus SurgeryComment Only: Other (fasciotomy right leg) Amputation: No Fractures: No - *Social History Last grade of school completed: Some college Smoking Status: Current every day smoker Tobacco Type: cigarettes # Packs/Day (cigarettes): 1 Alcohol Intake: never Alcohol Intake Frequency:: other Substance Use Type: former substance user *Occupational Status:: employed Housing: apartment Household Members: children *Travel in the last 8 weeks: None - Psychiatric History Pschychiatric History:: Reports:: Depression Family Hx:: Unable to obtain Meds Home Medications Medication Instructions Recorded Confirmed Type Pregabalin [Lyrica 300mg Cap] 300 mg PO BID 11/04/19 06/30/20 History Quetiapine Fumarate [Seroquel] 100 mg PO HS 11/04/19 06/30/20 History duloxetine 60 mg capsule,delayed 60 mg PO HS cap 01/10/20 05/01/20 History release Ketorolac Tromethamine [Toradol 10 mg PO Q6H 06/30/20 06/30/20 History 10mg tablet] Allergies Allergy/AdvReac Type Severity Reaction Status Date / Time No Known Allergies Allergy Verified 05/01/20 10:33 Exam Vital signs and Labs for Last 24 Hours: Temp Pulse Resp BP Pulse Ox 98.2 F 104 H 21 143/80 H 98 06/30/20 17:22 06/30/20 17:22 06/30/20 17:22 06/30/20 17:22 06/30/20 17:22 Laboratory Results - last 24 hr 06/30/20 17:50: WBC 12.8 H, RBC 5.03, Hgb 16.0, Hct 47.1 H, MCV 93.5, MCH 31.7 H, MCHC 33.9, RDW 14.3, Plt Count 256, MPV 8.6, Neut % (Auto) 67.8, Lymph % (Auto) 24.9, [place] % (Auto) 4.7, Eos % (Auto) 1.7, Baso % (Auto) 0.9, Neut # (Auto) 8.7 H, Lymph # (Auto) 3.2, [place] # (Auto) 0.6, Eos # (Auto) 0.2, Baso # (Auto) 0.1 06/30/20 17:50: Sodium 134 L, Potassium 3.5, Chloride 98, Carbon Dioxide 29, Anion Gap 10.5, BUN 5 L, Creatinine 0.40 L, Estimated Creat Clear 344 H, Estimated GFR 182, Est GFR ( Amer) 220, Glucose 351 H, Calcium 9.5, Total Bilirubin 0.9, AST 107 H, ALT 151 H, Alkaline Phosphatase
[2020-06-30 19:13] LABS: HCG Qualitative, Serum Negative (Negative)
--- NOTE | 2020-06-30 19:37 | PC.NURSE ---
Patient is a direct admit from . Alert and oriented x 5. Gi reg diet. Npo after midnight. voids in toilet. Up ad lanie. Patient has abscess on left breast. Reports pain 10/10. Gave morphine 2 mg, reported after an hour pain was still a 10. Notified who ordered ibuprofen 600 mg q 6 hrs prn and one time dose of 4mg of morphine. Order sent to [facility]. Patient will be going for I/D of abscess tomorrow. Afebrile. Consult added for dosing for vanc. to pharmacy. Will continue to monitor patient.
[2020-06-30 19:38] LABS: Coronavirus 19 IgG Antibody Negative (Negative); Coronavirus 19 IgM Antibody Negative (Negative)
[2020-06-30 20:00] VITALS: BP 155/89; PULSE 105; RESP 22; TEMP 36.8; O2SAT 95
--- NOTE | 2020-06-30 20:12 | HMH.PHAVTE ---
[facility] Pharmacy VTE Monitoring - Patient Demographics Admission date: 06/30/20 Report Date: 06/30/20 Time: 20:12 Allergies/Adverse Reactions: Patient Allergies No Known Allergies Allergy (Verified 05/01/20 10:33) Height: 1.75 m Weight: 111.13 kg Patient Problems: Current Active Problems Chest wall abscess (Acute) Left breast abscess (Acute) - VTE Risk Labs: VTE Related Lab Results Hgb 16.0 g/dL (12.2-16.2) 06/30/20 17:50 Hct 47.1 % (37.0-47.0) H 06/30/20 17:50 Plt Count 256 K/mm3 (142-424) 06/30/20 17:50 BUN 5 mg/dl (7-17) L 06/30/20 17:50 Creatinine 0.40 mg/dl (0.52-1.04) L 06/30/20 17:50 Estimated Creat Clear 344 mL/min (50-200) H 06/30/20 17:50 Was VTE Risk Assessment Performed: Yes VTE Score: 1 VTE Risk Level: Very Low Risk Clinical Trial Participant: No - Prophylaxis VTE Prophylaxis Ordered?: Yes Types of VTE Prophylaxis: TEDS Knee High
[2020-07-01] VITALS (19 sets, daily range): BP systolic 121–151; BP diastolic 65–89; PULSE 90–110; RESP 18–22; TEMP 36.5–36.9; O2SAT 90–96; BMI 36.2
--- NOTE | 2020-07-01 00:17 | PC.WOUNDNOTE ---
Wound Location: Length:1 cm Width:1.5 cm Undermining Y/N: n Inflammation/swelling Y/N: yes, both Pain and/or tenderness Y/N:yes, both Exudate: Sanguinous Color: Red Consistency: Thin Amount: Small Odor Y/N:no
--- NOTE | 2020-07-01 06:26 | PC.NURSE ---
Pt is A&Ox4. Lung sounds clear t/o. No cough noted. Photo consent obtained this shift for lt breast abscess. Photos in chart. No edema noted. Pt c/o lt breast pain x1 this shift. Pt medicated per AUG. Surgical consent signed and in pt's chart. No other acute changes or complaints at this time.
[2020-07-01 07:38] LABS: Basophils # 0.1 K/mm3 (0-0.2); Basophils % 0.7 % (0.1-2.0); Eosinophils # 0.2 K/mm3 (0.0-0.4); Eosinophils % 2.4 % (0.1-12.0); Hematocrit 43.5 % (37.0-47.0); Hemoglobin 15.1 g/dL (12.2-16.2); Lymphocytes # 2.9 K/mm3 (0.7-4.5); Lymphocytes % 31.5 % (10-50); Mean Corpuscular HGB Conc 34.6 g/dL (31.8-35.4); Mean Corpuscular Hemoglobin 32.8 pg (27.0-31.2); Mean Corpuscular Volume 94.9 fl (81-99); Mean Platelet Volume 9.1 fl (7.4-10.4); Monocytes # 0.4 K/mm3 (0.1-1.0); Monocytes % 4.6 % (1.7-9.3); Neutrophils # 5.6 K/mm3 (1.8-7.8); Neutrophils % 60.9 % (37.0-80.0); Platelet Count 201 K/mm3 (142-424); Red Blood Count 4.59 M/mm3 (4.20-5.40); Red Cell Distribution Width 14.6 % (11.5-17.5); White Blood Count 9.2 K/mm3 (4.8-10.8)
[2020-07-01 07:49] LABS: Anion Gap 11.7 mEq/L (5-15); Blood Urea Nitrogen 9 mg/dl (7-17); Carbon Dioxide 25 mmol/L (22.0-30.0); Chloride 102 mmol/L (98-107); Creatinine Clearance Estimated 344 mL/min (50-200); Estimated Glomerular Filt Rate 182 ml/min (>60); GFR (African American) 220 ML/MIN (>60); Glucose 299 mg/dl (74-100); Potassium 3.7 mmoL/L (3.5-5.1); Sodium 135 mmol/L (136-145)
--- NOTE | 2020-07-01 07:57 | ECG_ITS ---
APPROVED REPORT Exam: Resting ECG HR:86 bpm ECG Measurements Heart Rate 86 AXES MN 146 P 31 QRSd 94 QRS 43 QT 378 T 21 QTc 452 Conclusion Normal sinus rhythm Normal ECG Electronically signed by : Derrick Beltrna, 07/01/2020 19:56:38
--- NOTE | 2020-07-01 07:59 | HMH.PHACONS ---
- Pharmacy Consult Date: 07/01/20 Time: 07:59 Referring provider: DR. PORTILLO Reason for Consult:: VANCOMYCIN DOSING Allergies and ADEs:: Allergies Allergy/AdvReac Type Severity Reaction Status Date / Time No Known Allergies Allergy Verified 05/01/20 10:33 Home Medications:: Home Medications Medication Instructions Recorded Confirmed Type Pregabalin [Lyrica 300mg Cap] 300 mg PO BID 11/04/19 06/30/20 History Quetiapine Fumarate [Seroquel] 100 mg PO HS 11/04/19 06/30/20 History duloxetine 60 mg capsule,delayed 60 mg PO HS cap 01/10/20 06/30/20 History release Ketorolac Tromethamine [Toradol 10 mg PO Q6H 06/30/20 06/30/20 History 10mg tablet] Height: 1.75 m Weight: 110.903 kg Laboratory Results:: Laboratory Results - last 24 hr 06/30/20 17:50: WBC 12.8 H, RBC 5.03, Hgb 16.0, Hct 47.1 H, MCV 93.5, MCH 31.7 H, MCHC 33.9, RDW 14.3, Plt Count 256, MPV 8.6, Neut % (Auto) 67.8, Lymph % (Auto) 24.9, [place] % (Auto) 4.7, Eos % (Auto) 1.7, Baso % (Auto) 0.9, Neut # (Auto) 8.7 H, Lymph # (Auto) 3.2, [place] # (Auto) 0.6, Eos # (Auto) 0.2, Baso # (Auto) 0.1 06/30/20 17:50: Sodium 134 L, Potassium 3.5, Chloride 98, Carbon Dioxide 29, Anion Gap 10.5, BUN 5 L, Creatinine 0.40 L, Estimated Creat Clear 344 H, Estimated GFR 182, Est GFR ( Amer) 220, Glucose 351 H, Calcium 9.5, Total Bilirubin 0.9, AST 107 H, ALT 151 H, Alkaline Phosphatase 178 H, Total Protein 7.5, Albumin 4.3, Globulin 3.2, Albumin/Globulin Ratio 1.3 06/30/20 17:50: Serum HCG, Qual Negative 06/30/20 17:50: SARS-CoV-2 IgG Ab (Rapid) Negative, SARS-CoV-2 IgM Ab (Rapid) Negative 07/01/20 07:10: WBC 9.2 D, RBC 4.59, Hgb 15.1, Hct 43.5, MCV 94.9, MCH 32.8 H, MCHC 34.6, RDW 14.6, Plt Count 201, MPV 9.1, Neut % (Auto) 60.9, Lymph % (Auto) 31.5, [place] % (Auto) 4.6, Eos % (Auto) 2.4, Baso % (Auto) 0.7, Neut # (Auto) 5.6, Lymph # (Auto) 2.9, [place] # (Auto) 0.4, Eos # (Auto) 0.2, Baso # (Auto) 0.1 07/01/20 07:10: Sodium 135 L, Potassium 3.7, Chloride 102, Carbon Dioxide 25, Anion Gap 11.7, BUN 9 D, Creatinine 0.40 L, Estimated Creat Clear 344 H, Estimated GFR 182, Est GFR ( Amer) 220, Glucose 299 H, Calcium 9.0 Medical History: Reports:: Depression Denies:: Diabetes Mellitus Type 1, Diabetes Mellitus Type 2 Assessment and Plan (1) Chest wall abscess Status: Acute Category: Medical Code(s): L02.213 - Cutaneous abscess of chest wall (2) Left breast abscess Status: Acute Category: Medical Code(s): N61.1 - Abscess of the breast and nipple - Assessment and plan all Dx Assessment and Plan for all problems:: BASED ON PATIENT FACTORS, RECOMMEND VANCOMYCIN 2 GM IV ONCE, FOLLOWED BY VANCOMYCIN 1750 MG IV Q8H. PHARMACY WILL FOLLOW DAILY AND ADJUST APPROPRIATE.
--- NOTE | 2020-07-01 08:24 | P.PN_ITS ---
Subjective Patient reports: no new complaints Progress Note: A&P (1) Chest wall abscess Status: Acute (2) Left breast abscess Status: Acute Assessment and plan: Continue current antibiotics She is scheduled for incision and drainage later today. I have discussed the risks and benefits including, but not limited to: Bleeding Infection Damage to surrounding tissue Inherent risks of sedation The patient agrees to proceed. Exam Vital signs and Labs for Last 24 Hours: Temp Pulse Resp BP Pulse Ox 97.8 F 96 H 20 129/76 93 L 07/01/20 04:00 07/01/20 04:00 07/01/20 04:00 07/01/20 04:00 07/01/20 04:00 Laboratory Results - last 24 hr 06/30/20 17:50: WBC 12.8 H, RBC 5.03, Hgb 16.0, Hct 47.1 H, MCV 93.5, MCH 31.7 H , MCHC 33.9, RDW 14.3, Plt Count 256, MPV 8.6, Neut % (Auto) 67.8, Lymph % (Auto) 24.9, [place] % (Auto) 4.7, Eos % (Auto) 1.7, Baso % (Auto) 0.9, Neut # (A uto) 8.7 H, Lymph # (Auto) 3.2, [place] # (Auto) 0.6, Eos # (Auto) 0.2, Baso # (Auto) 0.1 06/30/20 17:50: Sodium 134 L, Potassium 3.5, Chloride 98, Carbon Dioxide 29, Anion Gap 10.5, BUN 5 L, Creatinine 0.40 L, Estimated Creat Clear 344 H, Estimated GFR 182, Est GFR ( Amer) 220, Glucose 351 H, Calcium 9.5, Total Bilirubin 0.9, AST 107 H, ALT 151 H, Alkaline Phosphatase 178 H, Total Protein 7.5, Albumin 4.3, Globulin 3.2, Albumin/Globulin Ratio 1.3 06/30/20 17:50: Serum HCG, Qual Negative 06/30/20 17:50: SARS-CoV-2 IgG Ab (Rapid) Negative, SARS-CoV-2 IgM Ab (Rapid) Negative 07/01/20 07:10: WBC 9.2 D, RBC 4.59, Hgb 15.1, Hct 43.5, MCV 94.9, MCH 32.8 H, MCHC 34.6, RDW 14.6, Plt Count 201, MPV 9.1, Neut % (Auto) 60.9, Lymph % (Auto) 31.5, [place] % (Auto) 4.6, Eos % (Auto) 2.4, Baso % (Auto) 0.7, Neut # (Auto) 5.6, Lymph # (Auto) 2.9, [place] # (Auto) 0.4, Eos # (Auto) 0.2, Baso # (Auto) 0.1 07/01/20 07:10: Sodium 135 L, Potassium 3.7, Chloride 102, Carbon Dioxide 25, Anion Gap 11.7, BUN 9 D, Creatinine 0.40 L, Estimated Creat Clear 344 H, Estimated GFR 182, Est GFR ( Amer) 220, Glucose 299 H, Calcium 9.0 I & O for Last 24 hours: Intake & Output 06/28/20 06/29/20 06/30/20 07/01/20 11:59 11:59 11:59 11:59 Intake Total 360 / 360 Balance 360 / 360 Weight 244 lb 8 oz - Constitutional no acute distress - *Routine Respiratory Exam Absent: respiratory distress - *Routine Cardiovascular Exam Present: RRR
--- NOTE | 2020-07-01 08:46 | HMH.ACPN2 ---
Internal Medicine - PN: Subj *Date: 07/01/20 *Time: 08:46 Interval history: Patient did well overnight. Continues to have left breast pain. Denies any fevers, nausea, vomiting, shortness of breath. Is n.p.o. this morning for planned I&D of abscess Exam Vital signs and Labs for Last 24 Hours: Temp Pulse Resp BP Pulse Ox 97.7 F 90 20 146/85 H 96 07/01/20 08:00 07/01/20 08:00 07/01/20 08:00 07/01/20 08:00 07/01/20 08:00 Laboratory Results - last 24 hr 06/30/20 17:50: WBC 12.8 H, RBC 5.03, Hgb 16.0, Hct 47.1 H, MCV 93.5, MCH 31.7 H, MCHC 33.9, RDW 14.3, Plt Count 256, MPV 8.6, Neut % (Auto) 67.8, Lymph % (Auto) 24.9, [place] % (Auto) 4.7, Eos % (Auto) 1.7, Baso % (Auto) 0.9, Neut # (Auto) 8.7 H, Lymph # (Auto) 3.2, [place] # (Auto) 0.6, Eos # (Auto) 0.2, Baso # (Auto) 0.1 06/30/20 17:50: Sodium 134 L, Potassium 3.5, Chloride 98, Carbon Dioxide 29, Anion Gap 10.5, BUN 5 L, Creatinine 0.40 L, Estimated Creat Clear 344 H, Estimated GFR 182, Est GFR ( Amer) 220, Glucose 351 H, Calcium 9.5, Total Bilirubin 0.9, AST 107 H, ALT 151 H, Alkaline Phosphatase 178 H, Total Protein 7.5, Albumin 4.3, Globulin 3.2, Albumin/Globulin Ratio 1.3 06/30/20 17:50: Serum HCG, Qual Negative 06/30/20 17:50: SARS-CoV-2 IgG Ab (Rapid) Negative, SARS-CoV-2 IgM Ab (Rapid) Negative 07/01/20 07:10: WBC 9.2 D, RBC 4.59, Hgb 15.1, Hct 43.5, MCV 94.9, MCH 32.8 H, MCHC 34.6, RDW 14.6, Plt Count 201, MPV 9.1, Neut % (Auto) 60.9, Lymph % (Auto) 31.5, [place] % (Auto) 4.6, Eos % (Auto) 2.4, Baso % (Auto) 0.7, Neut # (Auto) 5.6, Lymph # (Auto) 2.9, [place] # (Auto) 0.4, Eos # (Auto) 0.2, Baso # (Auto) 0.1 07/01/20 07:10: Sodium 135 L, Potassium 3.7, Chloride 102, Carbon Dioxide 25, Anion Gap 11.7, BUN 9 D, Creatinine 0.40 L, Estimated Creat Clear 344 H, Estimated GFR 182, Est GFR ( Amer) 220, Glucose 299 H, Calcium 9.0 I & O for Last 24 hours: Intake & Output 06/28/20 06/29/20 06/30/20 07/01/20 23:59 23:59 23:59 23:59 Intake Total 360 / 360 Balance 360 / 360 Weight 111.13 kg 110.903 kg Narrative: - *Routine HEENT Exam Head: Present: normocephalic Eye: Present: EOMI, PERRL ENT: Present: mucous membranes moist - *Routine Neck Exam Present: supple. Absent: lymphadenopathy - Routine Chest/Breast/Axilla Exam Chest wall: Present: tenderness, mass Breast: Present: induration Comments: Slight improvement in erythema but consistent size of Large, 8 to 10 cm indurated painful and fluctuant abscess underneath the left breast, scant bloody purulent drainage. No evidence of nipple discharge. No evidence of axillary lymphadenopathy but exquisite tenderness makes exam fairly difficult. - *Routine Respiratory Exam Present: CTA bilaterally - *Routine Cardiovascular Exam Present: RRR - *Routine Abdominal Exam Present: soft, normoactive bowel sounds. Absent: tenderness - *Routine Extremities Exam Absent: cyanosis, clubbing, edema - *Routine Skin Exam Present: warm. Absent: rash - *Routine Neurological Exam Present: alert, oriented X3; Previously noted sensory loss and hyper paresthesias in both legs below the knees. No current skin lesions Assessment and Plan (1) Chest wall abscess Status: Acute Category: Medical Code(s): L02.213 - Cutaneous abscess of chest wall (2) Left breast abscess Status: Acute Category: Medical Code(s): N61.1 - Abscess of the breast and nipple - Assessment and plan all Dx Assessment and Plan for all problems:: 34-year-old female with left breast abscess, plan for I&D today. Continue IV antibiotics for the time being. Plan to transition to oral coverage when patient medically stable for discharge home. At this time we have no cultures to base sensitivities on however plan for empiric broad-spectrum coverage. We will likely transition to Zyvox twice daily for 2 weeks. Further management pending extent of I&D. If stable after procedure, will consider discharge home this evening, if h
[2020-07-01 10:01] LABS: POC Glucose,Bedside 255 (70-110)
--- NOTE | 2020-07-01 10:33 | P.OP_ITS ---
Date of procedure: 07/01/20 Pre-op Diagnosis:: Left breast abscess Post-op Diagnosis:: Same Procedure performed:: Debridement of left breast abscess Surgeon:: Ten Montejo MD [facility] NURSE:: Derrick Jung Anesthesia: LMA Estimated blood loss (mL): 1 Operative findings:: Left breast abscess had spontaneously drained through small central opening. No pockets of purulence remained; therefore, fluid was not sent for Gram stain/culture. Operative note:: After informed consent was obtained the patient was taken to the operating room and placed in the supine position. General anesthesia with laryngeal mask airway was achieved. Evaluation revealed that the abscess had spontaneously drained and was no longer fluctuant. A small central opening was noted. The opening was expanded manually and the underlying superficial pocket was evacuated of a small amount of hematoma. There was no fluid for Gram stain and culture. The wound was packed with gauze. The underlying tissue was infiltrated with 1% lidocaine. The gauze was also saturated with lidocaine. Dressings were applied and the patient was transferred to recovery in stable condition after removal of her laryngeal mask airway. Condition: stable Disposition: PACU Specimens:: None Complications:: No immediate
--- NOTE | 2020-07-01 10:46 | HMH.ANESCL ---
[facility] Anesthesia Checklist - Patient Identification Patient Identification: Arm Band, Verbal (Name & ) - Structural Data Admitted From: Inpatient Planned Operative Procedure/s: i and d breast Consent for Planned Operative Procedure(s) Verified: Yes Verified Documents: History and Physical - NPO Status Verified Time NPO: 00:00 - Chart Verification Results Verified: CBC, BMP - Additional verifications Patient : No Anesthesia Reactions: No Hx Blood Transfusions: No Blood Transfusion Reaction: No Cephalosporin Allergy: No Previous Colonoscopy: No - Cardiovascular Assessment Heart Sounds: S1 & S2 Pulse Strength: Baseline Pulse Rhythm: Regular Peripheral Edema: No - Airway Assessment C-Spine Mobility Assessed: Yes TMJ Mobility Assessed: Yes Dentition: Good Dentition - Neurological Assessment Level of Consciousness: Awake, Alert, Appropriate Hx Seizures: No Numbness or tingling in extremities: No - Anesthesia Plan Anesthesia Risk discussed: Yes Anesthesia Plan: Verified ASA Class: II Anesthesia Type: General [facility] History I have reviewed the patient's past medical history: Yes Medical History: Reports:: Depression Denies:: Diabetes Mellitus Type 1, Diabetes Mellitus Type 2 *Have you ever received a pneumonia vaccine?: No *Have you received a flu vaccine this season?: No Anesthesia experience/problems:: none Other Surgeries: Yes: No Previous Surgery, , Sinus SurgeryComment Only: Other (fasciotomy right leg) Amputation: No Fractures: No - *Social History Last grade of school completed: Some college Smoking Status: Current every day smoker Tobacco Type: cigarettes # Packs/Day (cigarettes): 1 Alcohol Intake: never Alcohol Intake Frequency:: other Substance Use Type: former substance user *Occupational Status:: employed Housing: apartment Household Members: children *Travel in the last 8 weeks: None - Psychiatric History Pschychiatric History:: Reports:: Depression Family Hx:: Unable to obtain
--- NOTE | 2020-07-01 10:47 | HMH.ANESI ---
[facility] Anesthesia Record Part I Intake, IV Amount: 150 Estimated blood loss (mL): 5 Urine output (mL): 0 Blood Products used (#): none Blood Pressure: 138/70 SaO2: 90 Pulse Rate: 110 Respiratory Rate: 20 Temperature: 97.9 F Patient is:: Awake, Nasal O2, Stable Stable to PACU at:: 10:44
--- NOTE | 2020-07-01 11:09 | PC.NURSE ---
1055-respiratory therapy at bedside administering duoneb breathing treatment 1102-pt lung sounds improved after breathing treatment and now diminished to hunter bases, pt taking good deep breaths, very loose cough noted w/out production, pt now on 3l/nc 1111-pt using incentive spirometer at this time, lung/respiratory effort improving, pt on 2l/nc with o2 sats maintaining 92-93%, detailed report called to JERILYN Ballard 1116-pt transported to 2nd floor room 204 via bed with hunter rails up and left in care of JERILYN Day, vss, pt stable
--- NOTE | 2020-07-01 11:44 | HMH.ANESII ---
[facility] Anesthesia Record Part II Discharge Time: 11:14 Destination: Medical Surgical Department PACU nurse assessment reviewed?: Yes Patient Condition:: Good Anesthesia Complications:: None Swallowing reflex intact?: Yes Cyanosis?: No Blood Pressure: 136/89 Pulse Rate: 99 Temperature: 98.4 F Mental Status: Alert & Oriented Pain level:: 3 Nausea and/or vomitting:: None Intake, IV Amount: 50
--- NOTE | 2020-07-01 14:04 | HMH.DCSUM ---
General - General Admission date:: 06/30/20 Discharge date: 07/01/20 HPI HPI: 34-year-old white female with history of peripheral neuropathy and left-sided hip pain, related to an incident resulting in severe rhabdomyolysis and lower extremity compartment syndrome requiring lengthy hospital stay at [facility] many years ago, who has done a very nice job recovering and is doing very well overall, who came to my office on the day of admission with 3 days of left lower breast swelling. She notes no trauma, pain, is not actively nursing, no breast lumps or masses palpable. Found to have significantly swollen and abscess formation underneath the left breast, given the size and location of the abscess it was deemed it would need to to be evaluated and treated with surgical drainage. Patient was admitted to hospital for intravenous antibiotics, pain control and surgical consultation. Hospital Course Hospital Course: Admitted for abscess in her left breast. Prior to surgery lesion expressed itself. Surgery performed with small pocket appreciated. Has responded well to vancomycin IV. We will plan to transition to oral Bactrim to complete 10-day course of treatment. Patient to be educated on wound care. Plan to follow-up with surgery in our office for further management in the coming days to week. Medically stable for discharge home. Tolerating oral medication. Objective Vital signs: Temp Pulse Resp BP Pulse Ox 98.4 F 99 H 20 136/89 93 L 07/01/20 11:44 07/01/20 11:44 07/01/20 11:14 07/01/20 11:44 07/01/20 11:14 Narrative: - *Routine HEENT Exam Head: Present: normocephalic Eye: Present: EOMI, PERRL ENT: Present: mucous membranes moist - *Routine Neck Exam Present: supple. Absent: lymphadenopathy - Routine Chest/Breast/Axilla Exam Chest wall: Present: tenderness, mass Breast: Present: induration Comments: Slight improvement in erythema but consistent size of Large, 8 to 10 cm indurated painful and fluctuant abscess underneath the left breast, scant bloody purulent drainage. No evidence of nipple discharge. No evidence of axillary lymphadenopathy but exquisite tenderness makes exam fairly difficult. - *Routine Respiratory Exam Present: CTA bilaterally - *Routine Cardiovascular Exam Present: RRR - *Routine Abdominal Exam Present: soft, normoactive bowel sounds. Absent: tenderness - *Routine Extremities Exam Absent: cyanosis, clubbing, edema - *Routine Skin Exam Present: warm. Absent: rash - *Routine Neurological Exam Present: alert, oriented X3; Previously noted sensory loss and hyper paresthesias in both legs below the knees. No current skin lesions Results Labs on day of discharge: Labs from last 24 hours 07/01/20 07/01/20 07/01/20 09:53 07:10 07:10 WBC 9.2 D RBC 4.59 Hgb 15.1 Hct 43.5 MCV 94.9 MCH 32.8 H MCHC 34.6 RDW 14.6 Plt Count 201 MPV 9.1 Neut % (Auto) 60.9 Lymph % (Auto) 31.5 [place] % (Auto) 4.6 Eos % (Auto) 2.4 Baso % (Auto) 0.7 Neut # (Auto) 5.6 Lymph # (Auto) 2.9 [place] # (Auto) 0.4 Eos # (Auto) 0.2 Baso # (Auto) 0.1 Sodium 135 L Potassium 3.7 Chloride 102 Carbon Dioxide 25 Anion Gap 11.7 BUN 9 D Creatinine 0.40 L Estimated Creat Clear 344 H Estimated GFR 182 Est GFR ( Amer) 220 Glucose 299 H POC Glucose 255 H Calcium 9.0 Total Bilirubin AST ALT Alkaline Phosphatase Total Protein Albumin Globulin Albumin/Globulin Ratio Serum HCG, Qual SARS-CoV-2 IgG Ab (Rapid) SARS-CoV-2 IgM Ab (Rapid) 06/30/20 06/30/20 06/30/20 17:50 17:50 17:50 WBC RBC Hgb Hct MCV MCH MCHC RDW Plt Count MPV Neut % (Auto) Lymph % (Auto) [place] % (Auto) Eos % (Auto) Baso % (Auto) Neut # (Auto) Lymph # (Auto) [place] # (Auto) Eos # (Auto) Baso #
[2020-07-01 17:58] LABS: POC Glucose,Bedside 216 (70-110)
== END 2020-07-01 17:30 | disposition home or self-care (01) ==
PROVIDERS: Surgery; Admitting Provider Internal Medicine Adolescent Medicine; PCP Internal Medicine Adolescent Medicine; Visit Provider Internal Medicine Adolescent Medicine
PROC: (CPT 10060; principal; 2020-07-01 10:00)
DX: Z72.0 Tobacco use (principal); N61.1 Abscess of the breast and nipple
CPT/HCPCS: 10060; 36415; 80048; 80053; 82962; 84703; 85025; 86328; 87040; 93005; 94640; G0378; J2405; J3370

== ENCOUNTER 2020-08-05 16:43 | Emergency (ER) | payer BC, SELFPAY ==
[2020-08-05 16:44] VITALS: BP 166/92; BP 170/90; PULSE 123; PULSE 84; RESP 18; TEMP 36.6; O2SAT 96; BMI 29.8
--- NOTE | 2020-08-05 16:56 | HMH.EDBACK ---
ED Disposition Clinical Impression: Lumbago Qualifiers: Chronicity: acute Back pain laterality: midline Sciatica presence: without sciatica Qualified Code(s): M54.5 - Low back pain Disposition: Home, Self-Care Condition on Discharge: Good Instructions: DI for Acute Pain -- Adult Referrals: Derrick Beltran MD [Primary Care Provider] - 3 days - Critical Care Critical Care Time: No Attestation: On , the high probability of a clinically significant, sudden or life threatening deterioration of the following system(s) required my full and direct attention, intervention and personal management. The time I documented below is in addition to time spent performing reported procedures but includes the following listed in this critical care notation. Medical Decision Making - Yunier Inquiry Pt receiving controlled substance: No Vital Signs: 08/05/20 16:44 Temperature 97.9 F Temperature Source Oral Pulse Rate [Right Radial] 84 Respiratory Rate 18 Blood Pressure [Right Arm] 170/90 H Blood Pressure Mean [Right Arm] 116 Blood Pressure Source [Right Arm] Automatic Cuff Blood Pressure Position [Right Arm] Sitting 02 Sat by Pulse Oximetry 96 Oxygen Delivery Method Room Air Medical Decision Narrative: 34yo F evaluated for nontraumatic back pain x4 days. Differential diagnosis includes but not limited to: Muscle spasm, disc disease, kidney stone, bony mets, cystitis, constipation. Patient is in no acute distress on initial evaluation. Her exam is largely unremarkable. Patient already takes several medications for pain. I agreed to provide the patient a few day prescription for muscle relaxer. Counseled on not driving while taking muscle relaxers. Patient voiced understanding agreement plan. She is to follow back up with her PCP in 2 to 3 days. Back Pain HPI - General Stated Complaint: back pain Time Seen by Provider: 08/05/20 16:56 Source of Information: Patient Limitations: No Limitations - History of Present Illness HPI Narrative: 34yo F with past medical history significant for chronic pain, neuropathy, diabetes presents to the emergency department secondary to low back pain. Patient reports the back pain began on Tuesday and has progressively worsened since that time. She denies any trauma, fall. She denies any difficulty with voiding or having a bowel movement. Denies loss of control of either. She denies radiating pain down either leg. She denies previous episodes similar to this but does endorse having neuropathy. She also states she has been evaluated by orthopedics at the [facility] and they were contemplating hip replacement surgery. - Related Data Home Medications Medication Instructions Recorded Confirmed Pregabalin [Lyrica 300mg Cap] 300 mg PO BID 11/04/19 08/05/20 Quetiapine Fumarate [Seroquel] 100 mg PO HS PRN 11/04/19 08/05/20 duloxetine 60 mg capsule,delayed 60 mg PO HS cap 01/10/20 08/05/20 release Insulin Aspart [Novolog Flexpen] 10 units SQ AC 08/05/20 08/05/20 Insulin Glargine,Hum.rec.anlog 40 unit SQ HS 08/05/20 08/05/20 [Basaglar Kwikpen U-100] Allergies Allergy/AdvReac Type Severity Reaction Status Date / Time No Known Allergies Allergy Verified 07/16/20 13:54 [facility] History - Hepatitis A Screen Drug use history?: No Attestation statement:: This patient has been screened for Hepatitis A risk factors. I have reviewed the patient's past medical history: Yes Medical History: Reports:: Depression, Diabetes Mellitus Type 1 Denies:: Diabetes Mellitus Type 2, Seizures Other Medical History: Denies: Blood Transfusion Reaction Comment: Peripheral neuropathy from rhabdomyolysis and compartment syndrome episode many years ago, on chronic Lyrica Other Surgeries: Yes: No Previous Surgery, , Sinus Surgery, Other Amputation: No Fractures: No Comment: RT leg fasciotomy - Social History Smoking Status: Current every day smoker Tobacco Type: cigarettes #
[2020-08-05 18:06] VITALS: BP 135/86; PULSE 83; RESP 20; TEMP 36.6; O2SAT 98
== END 2020-08-05 18:06 | disposition home or self-care (01) ==
PROVIDERS: Emergency Provider Family Medicine; PCP Internal Medicine Adolescent Medicine
DX: M54.5 Low back pain (principal); E10.9 Type 1 diabetes mellitus without complications; F33.1 Major depressive disorder, recurrent, moderate; F17.210 Nicotine dependence, cigarettes, uncomplicated; F19.11 Other psychoactive substance abuse, in remission
CPT/HCPCS: 99282

== ENCOUNTER 2020-08-12 16:16 | Emergency (ER) | payer BC, SELFPAY ==
[2020-08-12 16:18] VITALS: BP 169/89; PULSE 131; RESP 18; TEMP 36.6; O2SAT 96; BMI 35.4
--- NOTE | 2020-08-12 16:29 | HMH.EDGENADL ---
ED Disposition Clinical Impression: Lumbar back pain Constipation Qualifiers: Constipation type: unspecified constipation type Qualified Code(s): K59.00 - Constipation, unspecified Disposition: Home, Self-Care Condition on Discharge: Good Instructions: DI for Low Back Pain, DI for Constipation Additional Instructions: You have been evaluated for low back pain. No fracture or abnormality seen on x-rays. Please take anti-inflammatories on a schedule. Take ibuprofen and Tylenol. Take Robaxin as needed at night. Use Lidoderm patches. Use heat, stretching, strengthening exercises. Follow-up with Dr. Carranza. He may want to schedule you to see a property management specialist or to have PT, OT, MRI. Return to the emergency department for any new or worsening symptoms, numbness or weakness in your legs. Prescriptions: polyethylene glycoL 3350 [Miralax 17gm Packet] 17 gm PO DAILY #30 packet Transmission Status: Received by [facility] Methocarbamol [Robaxin 500mg Tab*] 500 mg PO QID PRN #12 tab PRN Reason: Muscle Spasm Transmission Status: Received by [facility] Sennosides/Docusate Sodium [Senna-Docusate Sodium Tablet] 1 each PO DAILY PRN #30 tab PRN Reason: Constipation Transmission Status: Received by [facility] Referrals: Derrick Beltran MD [Primary Care Provider] - Time of Disposition: 17:35 - Critical Care Critical Care Time: No Attestation: On 08/12/20, the high probability of a clinically significant, sudden or life threatening deterioration of the following system(s) required my full and direct attention, intervention and personal management. The time I documented below is in addition to time spent performing reported procedures but includes the following listed in this critical care notation. Medical Decision Making - Medical Records Medical records reviewed: Yes: I reviewed the patient's medical records. - Yunier Inquiry Pt receiving controlled substance: No Vital Signs: 08/12/20 16:18 Temperature 97.9 F Temperature Source Oral Pulse Rate [Left Radial] 131 H Respiratory Rate 18 Blood Pressure [Right Arm] 169/89 H Blood Pressure Mean [Right Arm] 115 Blood Pressure Source [Right Arm] Automatic Cuff Blood Pressure Position [Right Arm] Sitting 02 Sat by Pulse Oximetry 96 Oxygen Delivery Method Room Air Orders (Tests/Meds): ED MEDICATIONS Discontinued Medications Generic Name Dose Route Start Last Admin Trade Name Sapphire PRN Reason Stop Dose Admin Acetaminophen 500 mg 08/12/20 16:35 08/12/20 16:56 Acetaminophen 500mg Tab PO 08/12/20 16:36 500 mg ONCE ONE Administration Lidocaine 1 each 08/12/20 16:35 08/12/20 16:56 Lidocaine 5% Transdermal Patch TP 08/12/20 16:36 1 each ONCE ONE Administration ORDERS Category Date Time Status XR lumbar spine 2-3V Stat Exams 08/12/20 16:34 Taken Urinalysis and Microscopic Stat Lab 08/12/20 16:35 Ordered Medical Decision Narrative: In summary this is a 34-year-old female presenting to the emergency department with low back pain. She is clinically stable on arrival. Vital signs are within normal limits. She is able to ambulate. Differential diagnoses include lumbar sprain, compression fracture, referred pain. Will obtain x-rays of the lumbar spine and urinalysis. Takes Lyrica for neuropathy. She took ibuprofen within the last hour. Given 500 mg Tylenol. Lidoderm patch applied. X-rays are unrevealing. Specifically no compression fracture or other bony abnormality. Incidentally does show stool burden near the lumbar back. Patient is able to ambulate without difficulty. Counseled her that she will need to start a follow-up pathway with her primary care physician. Will likely start with MRI, PT, OT. May need to see a property management specialist eventually. Recommended bowel cleanout, given prescriptions for MiraLAX and doc senna. Anti-inflammatories and stretching. She is driving home. Given pres
--- NOTE | 2020-08-12 16:34 | XR_ITS ---
PROCEDURE: XR LUMBAR SPINE 2-3V CLINICAL INDICATION: low back pain COMPARISON: MR MR LUMBAR SPINE WO CON from 01/03/2020 FINDINGS: There is some straightening of the normal curvature at the thoracolumbar junction. And disc spaces are well maintained throughout. The SI joints are normal. IMPRESSION: Possible mild muscle spasm, no bony abnormality seen Dictated by: Dr. Mirza Chow MD 08/13/2020 07:44 Dr. Mirza Chow MD in [place] 08/13/2020 07:44
[2020-08-12 17:47] VITALS: BP 134/89; PULSE 96; RESP 17; TEMP 36.7; O2SAT 94
== END 2020-08-12 17:49 | disposition home or self-care (01) ==
PROVIDERS: Emergency Provider Emergency Medicine; PCP Internal Medicine Adolescent Medicine
DX: M54.5 Low back pain (principal); K59.00 Constipation, unspecified; E11.9 Type 2 diabetes mellitus without complications; F33.1 Major depressive disorder, recurrent, moderate; F17.210 Nicotine dependence, cigarettes, uncomplicated; Z79.899 Other long term (current) drug therapy
CPT/HCPCS: 72100; 99282

== ENCOUNTER 2021-03-13 14:59 | Emergency (ER) | payer OTHER, SELFPAY ==
[2021-03-13 15:01] VITALS: BP 162/91; PULSE 130; RESP 20; TEMP 36.8; O2SAT 96; BMI 32.5
--- NOTE | 2021-03-13 15:28 | HMH.EDSKAF ---
ED Disposition Clinical Impression: Abscess of skin or subcutaneous tissue Qualifiers: Site of cutaneous abscess: extremity Site of cutaneous abscess of extremity: lower extremity Laterality: left Qualified Code(s): L02.416 - Cutaneous abscess of left lower limb Disposition: Home, Self-Care Condition on Discharge: Good Instructions: DI for Skin Abscess Prescriptions: Sulfamethoxazole/Trimethoprim [Bactrim DS tablet] 1 each PO BID 7 Days #14 tab Transmission Status: Pending to [facility] cephALEXin [Cephalexin 500mg Tab] 500 mg PO Q6H 7 Days #28 tab Transmission Status: Pending to [facility] Referrals: Provider,Referral, [Primary Care Provider] - - Critical Care Critical Care Time: No Attestation: On 03/13/21, the high probability of a clinically significant, sudden or life threatening deterioration of the following system(s) required my full and direct attention, intervention and personal management. The time I documented below is in addition to time spent performing reported procedures but includes the following listed in this critical care notation. Medical Decision Making - Medical Records Medical records reviewed: Yes: I reviewed the patient's medical records. - Yunier Inquiry Pt receiving controlled substance: No Vital Signs: 03/13/21 15:01 Temperature 98.2 F Temperature Source Oral Pulse Rate [Right Radial] 130 H Respiratory Rate 20 Blood Pressure [Right Arm] 162/91 H Blood Pressure Mean [Right Arm] 114 Blood Pressure Source [Right Arm] Automatic Cuff 02 Sat by Pulse Oximetry 96 Oxygen Delivery Method Room Air - Reevaluation(s) Time: 15:31 Reevaluation #1: On reevaluation, patient is feeling much better. Tolerated procedure well. Patient be discharged on short course antibiotics. Needs to follow-up with PCP. Given instructions for packing removal. Also given strict return precautions. Verbalized understanding. Medical Decision Narrative: This is a 35-year-old female presented to the emergency department with an abscess in the left upper leg. I did perform bedside ultrasound. Patient is a fluid collection was approximately 3.3 x 2.4 cm in diameter. Patient will require incision and drainage. Skin/Abscess/FB HPI - General Chief complaint: Skin/Abscess/Foreign Body Stated complaint: cyst inside left leg Time Seen by Provider: 03/13/21 15:10 Mode of Arrival: Ambulatory Limitations: No Limitations Description of Symptoms (Recalled from ER Triage Doc. by RN): Pt reports red, painful area inside of L upper leg/groin area. Pt reports area has been present since Tuesday of this week. Pt states no drainage from area. Pt denies fevers - History of Present Illness HPI narrative: This is a 35-year-old female presented to the emergency department with some swelling in the left upper groin. Patient is a longstanding history of multiple abscesses. She has had them on the breast and her arms before that have required incision and drainage. Patient states that she noted some swelling in her left upper leg for the last 4 days. She states that has been getting worse. Is getting red now. Is becoming difficulty to walk secondary to the pain. She denies any fevers or chills. No chest pain or shortness of breath. No abdominal pain or vomiting. No diarrhea. - Related Data Home Medications Medication Instructions Recorded Confirmed Pregabalin [Lyrica 300mg Cap] 300 mg PO BID 11/04/19 08/05/20 Quetiapine Fumarate [Seroquel] 100 mg PO HS PRN 11/04/19 08/05/20 duloxetine 60 mg capsule,delayed 60 mg PO HS cap 01/10/20 08/05/20 release Insulin Aspart [Novolog Flexpen] 10 units SQ AC 08/05/20 08/05/20 Insulin Glargine,Hum.rec.anlog 40 unit SQ HS 08/05/20 08/05/20 [Basaglar Kwikpen U-100] Previous Rx's Medication Instructions Recorded Cyclobenzaprine HCl [Flexeril 10mg 10 mg PO BID PRN 4 Days #10 tab 08/05/20 tablet] Methocarbamol [Robaxin 500mg Tab
[2021-03-13 15:51] VITALS: BP 164/95; PULSE 108; RESP 18; TEMP 36.8; O2SAT 96
== END 2021-03-13 15:53 | disposition home or self-care (01) ==
PROVIDERS: Emergency Provider Emergency Medicine
DX: L02.416 Cutaneous abscess of left lower limb (principal); E11.9 Type 2 diabetes mellitus without complications; F33.1 Major depressive disorder, recurrent, moderate; Z79.4 Long term (current) use of insulin; Z79.899 Other long term (current) drug therapy; F17.210 Nicotine dependence, cigarettes, uncomplicated
CPT/HCPCS: 10060; 99281

== ENCOUNTER → 2021-03-18 15:14 | Outpatient (CLI) | payer OTHER, SELFPAY ==
[2021-03-18 16:13] LABS: Basophils # 0.1 K/mm3 (0-0.2); Basophils % 1.1 % (0.1-2.0); Eosinophils # 0.2 K/mm3 (0.0-0.4); Eosinophils % 1.9 % (0.1-12.0); Hematocrit 44.4 % (37.0-47.0); Lymphocytes % 37.4 % (10-50); Mean Corpuscular HGB Conc 33.7 g/dL (31.8-35.4); Mean Corpuscular Hemoglobin 31.1 pg (27.0-31.2); Mean Corpuscular Volume 92.3 fl (81-99); Mean Platelet Volume 9.5 fl (7.4-10.4); Monocytes # 0.5 K/mm3 (0.1-1.0); Monocytes % 4.3 % (1.7-9.3); Neutrophils # 5.9 K/mm3 (1.8-7.8); Neutrophils % 55.3 % (37.0-80.0); Platelet Count 394 K/mm3 (142-424); Red Blood Count 4.81 M/mm3 (4.20-5.40); White Blood Count 10.7 K/mm3 (4.8-10.8)
[2021-03-18 17:13] LABS: Chloride 102 mmol/L (98-107); Potassium 4.5 mmoL/L (3.5-5.1)
[2021-03-18 17:14] LABS: Sodium 141 mmol/L (136-145)
[2021-03-18 17:16] LABS: Blood Urea Nitrogen 4 mg/dl (7-17); Estimated Glomerular Filt Rate 140 ml/min (>60); GFR (African American) 169 ML/MIN (>60)
[2021-03-18 17:18] LABS: Anion Gap 15.5 mEq/L (5-15); Calcium 9.3 mg/dl (8.4-10.2); Carbon Dioxide 28 mmol/L (22.0-30.0); Glucose 126 mg/dl (74-100)
== END ==
PROVIDERS: Visit Provider Surgery
DX: Z01.812 Encounter for preprocedural laboratory examination (principal); Z11.52 Encounter for screening for COVID-19; L02.416 Cutaneous abscess of left lower limb
CPT/HCPCS: 36415; 80048; 85025; C9803; U0003; U0005

== ENCOUNTER 2021-03-19 11:21 | Day surgery (SDC) | payer OTHER, SELFPAY ==
[2021-03-19] VITALS (16 sets, daily range): BP systolic 137–156; BP diastolic 68–97; PULSE 83–95; RESP 15–18; TEMP 36.1–36.7; O2SAT 92–96; BMI 32.5
[2021-03-19 11:41] LABS: Urine Pregnancy, HCG Qual. Negative (Negative)
[2021-03-19 12:01] LABS: POC Glucose,Bedside 198 (70-110)
--- NOTE | 2021-03-19 13:16 | HMH.ANESCL ---
[facility] Anesthesia Checklist - Patient Identification Patient Identification: Arm Band, Verbal (Name & ) - Structural Data Admitted From: Home Planned Operative Procedure/s: I & D left thigh Consent for Planned Operative Procedure(s) Verified: Yes Verified Documents: Surgical Consent - NPO Status Verified Time NPO: 00:00 - Chart Verification Results Verified: None, HCG - Additional verifications Anesthesia Reactions: No Hx Blood Transfusions: No Blood Transfusion Reaction: No - Cardiovascular Assessment Heart Sounds: S1 & S2 - Airway Assessment C-Spine Mobility Assessed: Yes TMJ Mobility Assessed: Yes Dentition: Good Dentition - Neurological Assessment Level of Consciousness: Awake, Alert, Appropriate - Anesthesia Plan Anesthesia Risk discussed: Yes ASA Class: II Anesthesia Type: General [facility] History Medical History: Reports:: Depression, Diabetes Mellitus Type 1 Denies:: Cancer, Diabetes Mellitus Type 2, Internal Pacemaker, MRSA, Seizures *Have you ever received a pneumonia vaccine?: No *Have you received a flu vaccine this season?: No Other Medical History: Denies: Blood Transfusion Reaction Anesthesia experience/problems:: none Other Surgeries: Yes: No Previous Surgery, , Sinus Surgery, Other. No: Pacemaker Amputation: No Fractures: No - *Social History Last grade of school completed: High school graduate Smoking Status: Current every day smoker Tobacco Type: cigarettes # Packs/Day (cigarettes): 1 Alcohol Intake: never Alcohol Intake Frequency:: other Substance Use Type: former substance user *Occupational Status:: unemployed Housing: apartment Household Members: children *Travel in the last 8 weeks: None - Psychiatric History Pschychiatric History:: Reports:: Depression Family Hx:: Unable to obtain
--- NOTE | 2021-03-19 13:26 | HMH.OPNOTE ---
Date of procedure: 03/19/21 Pre-op Diagnosis:: Left groin/medial superior thigh abscess Post-op Diagnosis:: Same Procedure performed:: Incision and drainage of left groin/medial thigh abscess (3 x 3 x 3cm abscess) Surgeon:: Ten Montejo MD Measuring Machine Tender(s):: Geo Anesthesia: LMA Estimated blood loss (mL): 10 Operative findings:: Deep subcutaneous abscess with induration Operative note:: After informed consent was obtained the patient was taken to the operating room and placed in the supine position. Her left groin/medial superior thigh was prepped and draped in a sterile fashion. An elliptical incision was made around the lesion with electrocautery. The deep subcutaneous tissue was dissected. Purulent fluid was obtained for Gram stain/culture. A 3 x 3 x 3 cm area was essentially excised/debrided. The wound was then packed with moistened Kerlix. The entire area was infiltrated with 1% lidocaine. Dressings were applied and the patient was transferred to recovery in stable condition. Condition: stable Disposition: PACU Specimens:: Fluid for Gram stain/culture Complications:: No immediate
--- NOTE | 2021-03-19 13:34 | HMH.ANESI ---
[facility] Anesthesia Record Part I Intake, IV Amount: 200 Estimated blood loss (mL): 2 Urine output (mL): 0 Blood Products used (#): none Blood Pressure: 142/78 SaO2: 94 Pulse Rate: 90 Respiratory Rate: 15 Temperature: 97.0 F Patient is:: Drowsy Stable to PACU at:: 13:21
--- NOTE | 2021-03-19 14:42 | PC.NURSE ---
1422-detailed report given to JERILYN Prabhakar 1424-pt transported to post op via stretcher w/hunter rails up and left in care of JERILYN Prabhakar with bed locked in lowest position,vss, pt stable
[2021-03-19 15:08] LABS: POC Glucose,Bedside 168 (70-110)
== END 2021-03-19 15:25 | disposition home or self-care (01) ==
LOC: OR 11:24
PROVIDERS: Visit Provider Surgery
PROC: (CPT 10061; principal; 2021-03-19 13:00)
DX: L02.214 Cutaneous abscess of groin (principal); B38.3 Cutaneous coccidioidomycosis; E10.9 Type 1 diabetes mellitus without complications; F32.9 Major depressive disorder, single episode, unspecified; Z72.0 Tobacco use; Z79.4 Long term (current) use of insulin; Z79.899 Other long term (current) drug therapy
CPT/HCPCS: 10061; 81025; 82962; 87070; 87075; 87077; 87186; 87205; 96374; J2405

== ENCOUNTER → 2021-05-06 14:22 | Outpatient (CLI) | payer OTHER, SELFPAY ==
[2021-05-06 15:59] LABS: Urine Pregnancy, HCG Qual. Negative (Negative)
== END ==
PROVIDERS: Visit Provider Surgery
DX: Z01.812 Encounter for preprocedural laboratory examination (principal); Z11.52 Encounter for screening for COVID-19; L02.91 Cutaneous abscess, unspecified
CPT/HCPCS: 81025; C9803; U0003; U0005

== ENCOUNTER 2021-05-07 06:00 | Day surgery (SDC) | payer OTHER, SELFPAY ==
[2021-05-06 14:32] VITALS: BMI 32.5
[2021-05-07] VITALS (14 sets, daily range): BP systolic 105–146; BP diastolic 62–88; PULSE 94–118; RESP 12–18; TEMP 36.1–43; O2SAT 90–95
--- NOTE | 2021-05-07 06:41 | HMH.ANESCL ---
[facility] Anesthesia Checklist - Structural Data Admitted From: Home Planned Operative Procedure/s: i/d groin abcess Consent for Planned Operative Procedure(s) Verified: Yes - Additional verifications Anesthesia Reactions: No Hx Blood Transfusions: No Blood Transfusion Reaction: No - Airway Assessment C-Spine Mobility Assessed: Yes TMJ Mobility Assessed: Yes Dentition: Poor Dentition - Neurological Assessment Level of Consciousness: Awake, Alert, Appropriate - Anesthesia Plan Anesthesia Risk discussed: Yes Anesthesia Plan: Verified ASA Class: II Anesthesia Type: General [facility] History I have reviewed the patient's past medical history: Yes Medical History: Reports:: Depression, Diabetes Mellitus Type 2, MRSA Denies:: Cancer, Diabetes Mellitus Type 1, Internal Pacemaker, Seizures *Have you ever received a pneumonia vaccine?: No *Have you received a flu vaccine this season?: Yes Other Medical History: Denies: Blood Transfusion Reaction Anesthesia experience/problems:: none Other Surgeries: Yes: No Previous Surgery, , Sinus Surgery, Other. No: Pacemaker Amputation: No Fractures: No - *Social History Last grade of school completed: Some college Smoking Status: Current every day smoker Tobacco Type: cigarettes # Packs/Day (cigarettes): 1 Alcohol Intake: never Alcohol Intake Frequency:: other Substance Use Type: former substance user *Occupational Status:: unemployed Housing: house Household Members: children *Travel in the last 8 weeks: None - Psychiatric History Pschychiatric History:: Reports:: Depression Family Hx:: Cancer, Coronary Artery Disease, Hyperlipidemia, Hypertension
--- NOTE | 2021-05-07 07:24 | HMH.OPNOTE ---
Date of procedure: 05/07/21 Pre-op Diagnosis:: Left groin/thigh abscess Post-op Diagnosis:: Same Procedure performed:: Incision and drainage of left groin/thigh abscess Surgeon:: Ten Montejo MD SHOOK MACHINE OPERATOR:: Keith Ashford Anesthesia: LMA Estimated blood loss (mL): 10 Operative findings:: Purulent pocket evacuated Marginal necrotic tissue debrided Operative note:: After informed consent was obtained the patient was taken to the operating room and placed in the supine position. General anesthesia with laryngeal mask airway was achieved. Her left groin/thigh was prepped and draped in a sterile fashion. After infiltration with local anesthetic an elliptical incision was made around the central portion of the abscess. A purulent pocket was entered. The fluid was evacuated and marginal necrotic tissue was debrided. The wound was packed with moistened gauze. Dressings were applied and the patient was transferred to recovery in stable condition. Condition: stable Disposition: PACU Specimens:: None Complications:: No immediate
--- NOTE | 2021-05-07 07:32 | P.PN_ITS ---
[facility] Anesthesia Record Part I Intake, IV Amount: 500 Estimated blood loss (mL): 0 Urine output (mL): 0 Blood Pressure: 105/62 SaO2: 95 Pulse Rate: 99 Respiratory Rate: 12 Temperature: 98.7 F Patient is:: Awake, Stable Stable to PACU at:: 07:25
--- NOTE | 2021-05-07 07:40 | SUR.PHASEI ---
blood glucose in pacu 256 no orders per jtaylor
[2021-05-07 07:42] LABS: POC Glucose,Bedside 259 (70-110)
--- NOTE | 2021-05-07 09:06 | P.PN_ITS ---
[facility] Anesthesia Record Part II Discharge Time: 08:05 Destination: Surgical Day Care (OP Surgery) PACU nurse assessment reviewed?: Yes Patient Condition:: Good Anesthesia Complications:: None Swallowing reflex intact?: Yes Cyanosis?: No Blood Pressure: 112/68 Pulse Rate: 100 Temperature: 98.7 F Mental Status: Alert & Oriented Pain level:: 0 Nausea and/or vomitting:: None Intake, IV Amount: 0
[2022-03-25 10:54] LABS: POC Glucose,Bedside 200 (70-110)
== END 2021-05-07 08:44 | disposition home or self-care (01) ==
LOC: OR 06:02
PROVIDERS: PCP Registered Nurse; Visit Provider Surgery
PROC: (CPT 10061; principal; 2021-05-07 07:00)
DX: L02.214 Cutaneous abscess of groin (principal); E11.9 Type 2 diabetes mellitus without complications; F32.9 Major depressive disorder, single episode, unspecified; Z86.14 Personal history of Methicillin resistant Staphylococcus aureus infection; Z79.899 Other long term (current) drug therapy; Z72.0 Tobacco use; Z83.438 Family history of other disorder of lipoprotein metabolism and other lipidemia; Z82.49 Family history of ischemic heart disease and other diseases of the circulatory system; Z80.9 Family history of malignant neoplasm, unspecified
CPT/HCPCS: 10061; 82962; 96374; J2405

== ENCOUNTER 2021-05-19 19:21 | Emergency (ER) | payer OTHER, SELFPAY ==
[2021-05-19 19:31] VITALS: BP 136/78; PULSE 113; RESP 19; TEMP 36.8; O2SAT 97
--- NOTE | 2021-05-19 20:00 | HMH.EDUTC ---
[facility] Disposition Clinical Impression: URI (upper respiratory infection) Qualifiers: URI type: unspecified URI Qualified Code(s): J06.9 - Acute upper respiratory infection, unspecified Disposition: Home, Self-Care Condition on Discharge: Good Instructions: Azithromycin, DI for Cough -- Adult, Sore Throat Additional Instructions: *Monitor Temp, Over the counter Motrin or Tylenol as directed/as needed Tylenol every 4 hours and Motrin every 6 hours (as long as your family doctor has told you that you can take it) for fever or pain. and straight to ER if unable to lower temp less than 101.0 after medication given *Warm salt water gargles may help to soothe the throat *Throat Lozenges *Warm fluids like tea with honey may help to soothe the throat *Sleep elevated *Humidifier/Vaporizer Follow up IMMEDIATELY for new or worsening symptoms or no Noticeable improvement over the next 48-72 hours. 911 for difficulty breathing or swallowing You were tested for today for COVID19 your test result should be back in the next 24-48 hours, you may Check your results on the [facility] My health portal If you have trouble logging on there is number on there for you to call for help You was given a handout with instructions for Self Quarantine and Self isolation for while you wait on test results and what to do if they are positive If you are positive the Health Dept will be contacting you also Make sure to take your Vitamins Vit. C Vit D and Zinc if you can take them Prescriptions: Benzonatate [Benzonatate 100mg cap] 100 mg PO Q8HP PRN #15 cap PRN Reason: Cough Transmission Status: Pending to [id number] Azithromycin [Z-Nando 250mg Tab] 250 mg PO DIRECTED #6 tab Transmission Status: [id number] Referrals: Sofya Recinos APRN [Primary Care Provider] - As needed Forms: Work/School Release Time of Disposition: 20:17 Medical Decision Making - Yunier Inquiry Pt receiving controlled substance: No Yunier was queried for this patient: No Vital Signs: 05/19/21 19:31 Temperature 98.3 F Temperature Source Oral Pulse Rate [Left] 113 H Respiratory Rate 19 Blood Pressure [Right Arm] 136/78 Blood Pressure Mean [Right Arm] 97 02 Sat by Pulse Oximetry 97 Orders (Tests/Meds): ORDERS Category Date Time Status Covid-19 Nasal PCR ([facility]) Routine Lab 05/19/21 19:50 Received Medical Decision Narrative: Patient states that she has taken azithromycin before without reactions or complications [facility] HPI - General Stated complaint: head ache, cold chills, headache Time Seen by Provider: 05/19/21 20:01 Mode of Arrival: Ambulatory Source of Information: Patient Limitations: No Limitations Description of Symptoms (Recalled from Triage Doc. by RN): pt c/o loss of voice, earache, GOMEZ, body aches, congestion, and cold sweats since yesterday. exposed directly to covid. HEENT Symptoms (Recalled from RN notes): Yes (hoarse, ear aches, congestion and GOMEZ) Resp Symptoms (Recalled from RN notes): No Skin Symptoms (Recalled from RN notes): No MS Symptoms (Recalled from RN notes): No Functional Status (Recalled from RN notes): wnl - History of Present Illness Provider Complaint: Patient states that she has been having sinus congestion and pain along with cough, chills and loss of voice States that she was around someone last week that tested positive for COVID states that she feels like she has a bad sinus infection that has continued to get worse over the last couple of days - Related Data Home Medications Medication Instructions Recorded Confirmed Pregabalin [Lyrica 300mg Cap] 300 mg PO BID 11/04/19 05/06/21 Quetiapine Fumarate [Seroquel] 100 mg PO HS PRN 11/04/19 05/06/21 duloxetine 60 mg capsule,delayed 60 mg PO HS cap 01/10/20 05/06/21 release Previous Rx's Medication Instructions Recorded Hydrocod/Acet 5/325 mg [[place] 1 - 2 tab PO Q6HP PRN #11 tab 05/07/21 5/325mg tablet] Sulfa
[2021-05-19 20:19] VITALS: BP 136/78; PULSE 113; RESP 19; TEMP 36.8
== END 2021-05-19 20:23 | disposition home or self-care (01) ==
PROVIDERS: Emergency Provider Nurse Practitioner; PCP Registered Nurse
DX: J06.9 Acute upper respiratory infection, unspecified (principal); E11.9 Type 2 diabetes mellitus without complications; F33.1 Major depressive disorder, recurrent, moderate; F17.210 Nicotine dependence, cigarettes, uncomplicated; Z20.822 Contact with and (suspected) exposure to COVID-19
CPT/HCPCS: 99202; C9803; G0463; U0003; U0005

== ENCOUNTER → 2021-07-22 12:03 | Outpatient (CLI) | payer MEDICAID, SELFPAY | PROVIDERS: PCP Registered Nurse; Visit Provider Nurse Practitioner | DX: Z20.822 Contact with and (suspected) exposure to COVID-19 (principal) | CPT/HCPCS: C9803; U0003; U0005 ==

== ENCOUNTER 2021-09-20 06:51 | Observation (INO) | payer MEDICAID, SELFPAY ==
[2021-09-20] VITALS (15 sets, daily range): BP systolic 92–151; BP diastolic 56–89; PULSE 96–154; RESP 14–22; TEMP 36.7–37.2; O2SAT 93–100; BMI 32.3; BMI 33.7
--- NOTE | 2021-09-20 07:09 | PC.NURSE ---
pt in restraints. Tech at bedside monitoing
--- NOTE | 2021-09-20 07:19 | PC.NURSE ---
medic successfully inserted IV, Pt is moving around erratically jumping and jerking around
[2021-09-20 07:38] LABS: POC Glucose,Bedside 204 (70-110)
[2021-09-20 07:57] LABS: Microscopic, Urine URINE MICROSCOPIC (MICROSCOPIC)
--- NOTE | 2021-09-20 07:57 | PC.NURSE ---
Pt is now resting tech at bedside. 1:1 until further notice
[2021-09-20 08:01] LABS: Basophils # 0.2 K/mm3 (0-0.2); Basophils % 1.4 % (0.1-2.0); Eosinophils # 0.1 K/mm3 (0.0-0.4); Eosinophils % 1.2 % (0.1-12.0); Hematocrit 50.8 % (37.0-47.0); Hemoglobin 16.6 g/dL (12.2-16.2); Lymphocytes # 2.1 K/mm3 (0.7-4.5); Lymphocytes % 18.7 % (10-50); Mean Corpuscular HGB Conc 32.7 g/dL (31.8-35.4); Mean Corpuscular Hemoglobin 31.6 pg (27.0-31.2); Mean Corpuscular Volume 96.9 fl (81-99); Mean Platelet Volume 9.2 fl (7.4-10.4); Monocytes # 0.5 K/mm3 (0.1-1.0); Monocytes % 4.8 % (1.7-9.3); Neutrophils # 8.2 K/mm3 (1.8-7.8); Neutrophils % 73.8 % (37.0-80.0); Platelet Count 229 K/mm3 (142-424); Red Blood Count 5.24 M/mm3 (4.20-5.40); Red Cell Distribution Width 13.6 % (11.5-17.5); White Blood Count 11.1 K/mm3 (4.8-10.8)
--- NOTE | 2021-09-20 08:01 | PC.NURSE ---
pt resting still but remains restless
--- NOTE | 2021-09-20 08:06 | PC.NURSE ---
at bedside for assessment
--- NOTE | 2021-09-20 08:07 | HMH.EDGENADL ---
ED Disposition Clinical Impression: Encephalopathy, Hyperammonemia Sinusitis Qualifiers: Sinusitis location: unspecified location Chronicity: unspecified Qualified Code(s): J32.9 - Chronic sinusitis, unspecified Disposition: Admitted As Inpatient Condition on Discharge: Serious - Critical Care Critical Care Time: Yes Attestation: On 09/20/21, the high probability of a clinically significant, sudden or life threatening deterioration of the following system(s) required my full and direct attention, intervention and personal management. The time I documented below is in addition to time spent performing reported procedures but includes the following listed in this critical care notation. Total Critical Care Time: 45 Vital system(s) involved:: Central Nervous System My critical care processes included: Assessment & monitoring of V/S, Initial and Re-exams, Data Review/Interpretation, Coordinating Care, Medication Orders and management, Documentation Medical Decision Making - Yunier Inquiry Pt receiving controlled substance: Yes Yunier was queried for this patient: Yes Risks and benefits of using a controlled substance: were not discussed with pt by me Vital Signs: 09/20/21 06:50 09/20/21 08:14 09/20/21 08:30 Temperature 98.2 F Temperature Source Oral Pulse Rate 114 H 154 H Pulse Rate [Right Radial] 126 H Respiratory Rate 22 Blood Pressure 145/89 H Blood Pressure [Right Arm] 151/87 H Blood Pressure Mean 105 Blood Pressure Mean [Right Arm] 108 Blood Pressure Source [Right Arm] Automatic Cuff Blood Pressure Position [Right Arm] Sitting 02 Sat by Pulse Oximetry 97 100 99 Oxygen Delivery Method Room Air 09/20/21 08:58 09/20/21 09:22 09/20/21 10:09 Temperature Temperature Source Pulse Rate 117 H 117 H 116 H Pulse Rate [Right Radial] Respiratory Rate Blood Pressure 143/76 H 121/73 Blood Pressure [Right Arm] Blood Pressure Mean 102 89 Blood Pressure Mean [Right Arm] Blood Pressure Source [Right Arm] Blood Pressure Position [Right Arm] 02 Sat by Pulse Oximetry 95 99 99 Oxygen Delivery Method 09/20/21 10:55 09/20/21 11:21 09/20/21 11:30 Temperature Temperature Source Pulse Rate 115 H 112 H 114 H Pulse Rate [Right Radial] Respiratory Rate Blood Pressure 129/69 92/59 L 99/56 L Blood Pressure [Right Arm] Blood Pressure Mean 82 70 66 Blood Pressure Mean [Right Arm] Blood Pressure Source [Right Arm] Blood Pressure Position [Right Arm] 02 Sat by Pulse Oximetry 95 93 L 96 Oxygen Delivery Method 09/20/21 12:27 Temperature 98.3 F Temperature Source Pulse Rate 102 H Pulse Rate [Right Radial] Respiratory Rate 14 Blood Pressure 111/73 Blood Pressure [Right Arm] Blood Pressure Mean Blood Pressure Mean [Right Arm] Blood Pressure Source [Right Arm] Blood Pressure Position [Right Arm] 02 Sat by Pulse Oximetry Oxygen Delivery Method Room Air - Lab Data Lab Results 09/20/21 07:31: POC Glucose 204 H 09/20/21 07:49: Urine HCG, Qual Negative 09/20/21 07:50: WBC 11.1 H, RBC 5.24, Hgb 16.6 H, Hct 50.8 H, MCV 96.9, MCH 31.6 H, MCHC 32.7, RDW 13.6, Plt Count 229, MPV 9.2, Neut % (Auto) 73.8, Lymph % (Auto) 18.7, [place] % (Auto) 4.8, Eos % (Auto) 1.2, Baso % (Auto) 1.4, Neut # (Auto) 8.2 H, Lymph # (Auto) 2.1, [place] # (Auto) 0.5, Eos # (Auto) 0.1, Baso # (Auto) 0.2 09/20/21 07:50: Sodium 144, Potassium 4.2, Chloride 112 H, Carbon Dioxide 22, Anion Gap 14.2, BUN 4 L, Creatinine 0.50 L, Estimated Creat Clear 223, Estimated GFR 140, Est GFR ( Amer) 169, Glucose 195 H, Calcium 9.0, Total Bilirubin 0.9, AST 69 H, ALT 72, Alkaline Phosphatase 144 H, Total Protein 7.3, Albumin 4.1, Globulin 3.2, Albumin/Globulin Ratio 1.3 09/20/21 07:50: Urine Opiates Screen Negative, Urine Methadone Screen Negative, Ur Barbituates Screen Negative, Ur Phencyclidine Scrn Negative, Ur Amphetamines Screen Negative, U Benzodiazepines Scrn Negative, Urine Cocain
--- NOTE | 2021-09-20 08:07 | PC.NURSE ---
after MD left the room pt became more agitated than before
[2021-09-20 08:11] LABS: Appearance,Urine CLEAR (Clear); Bilirubin,Urine Negative (Negative); Blood, Urine Negative (Negative); Color,Urine YELLOW (Yellow); Glucose,Urine (UA) TRACE (Negative); Ketones,Urine Negative (Negative); Leukocyte Esterase,Urine Negative (Negative); Nitrate,Urine Negative (Negative); Protein,Urine Negative (Negative); Specific Gravity, Urine 1.025 (1.005-1.030); Urobilinogen,Urine 0.2 EU/dl (0.2)
--- NOTE | 2021-09-20 08:11 | XR_ITS ---
PROCEDURE INFORMATION: Exam: XR Chest Exam date and time: 09/20/2021 8:13 AM Age: 35 years old Clinical indication: Other: AMS TECHNIQUE: Imaging protocol: XR of the chest. Views: 1 view. COMPARISON: CR XR CHEST 2V 02/13/2020 4:06 PM FINDINGS: Lungs: No focal airspace disease. Pleural spaces: Unremarkable. No pleural effusion. No pneumothorax. Heart/Mediastinum: Cardiomediastinal silhouette is within normal limits. Bones/joints: Unremarkable. IMPRESSION: No acute cardiopulmonary abnormality.
--- NOTE | 2021-09-20 08:11 | CT_ITS ---
PROCEDURE INFORMATION: Exam: CT Head Without Contrast Exam date and time: 09/20/2021 9:34 AM Age: 35 years old Clinical indication: Altered mental status/memory loss; Confusion or disorientation; Additional info: Ams/ found unresponsive at er she is combative and agitated and not able to make sense TECHNIQUE: Imaging protocol: Computed tomography of the head without contrast. Radiation optimization: All CT scans at this facility use at least one of these dose optimization techniques: automated exposure control; mA and/or kV adjustment per patient size (includes targeted exams where dose is matched to clinical indication); or iterative reconstruction. COMPARISON: [facility] CT MAXILLOFACIAL W/CONTRAST 04/01/2016 9:18 PM FINDINGS: Brain: Normal. No hemorrhage. Unremarkable white matter. No mass effect. Cerebral ventricles: No ventriculomegaly. Paranasal sinuses: Moderate mucosal thickening the bilateral maxillary sinuses and left ethmoid air cells. There is a fluid level in the right maxillary sinus. Mastoid air cells: Visualized mastoid air cells are well aerated. Bones/joints: Unremarkable. No acute fracture. Soft tissues: Unremarkable. IMPRESSION: 1. No acute intracranial abnormality. 2. Moderate inflammatory paranasal sinus disease with fluid level in the right maxillary sinus, which can be seen in the setting of acute sinusitis.
--- NOTE | 2021-09-20 08:15 | PC.NURSE ---
Tech obtained vitals on pt when she was calm
--- NOTE | 2021-09-20 08:18 | HMH.ITSTN ---
Patient in a very agitated state and combative. Unable to scan, Dr. Kauffman said they will call for CT scan once they get her calmed down.
[2021-09-20 08:20] LABS: Urine Pregnancy, HCG Qual. Negative (Negative)
--- NOTE | 2021-09-20 08:21 | PC.NURSE ---
Rn gave med, still 1:1
[2021-09-20 08:22] LABS: Barbiturates Screen,Urine Negative ng/ml (<200)
[2021-09-20 08:24] LABS: Amphetamine/Metha Screen,Urine Negative ng/ml (<1000); Benzodiazepines Screen,Urine Negative ng/ml (<200)
--- NOTE | 2021-09-20 08:24 | PC.NURSE ---
Lab has been called to come to draw blood
[2021-09-20 08:25] LABS: Cannabinoid Screen,Urine Negative ng/ml (<50)
[2021-09-20 08:26] LABS: Cocaine Screen,Urine Negative ng/ml (<300); Methadone Screen,Urine Negative ng/ml (<300)
[2021-09-20 08:27] LABS: Opiate Screen,Urine Negative ng/ml (<300); Phencyclidine Screen,Urine Negative ng/ml (<25)
[2021-09-20 08:28] LABS: Chloride 112 mmol/L (98-107); Potassium 4.2 mmoL/L (3.5-5.1); Sodium 144 mmol/L (136-145)
--- NOTE | 2021-09-20 08:28 | PC.NURSE ---
Pt unable to go for rad scans at this time d/t remaining combative. Medication administered per MD request and awaiting results.
[2021-09-20 08:31] LABS: Alanine Aminotransferase 72 U/L (12-78); Albumin Level 4.1 g/dl (3.5-5.0); Albumin/Globulin Ratio 1.3 (1.1-1.8); Alkaline Phosphatase 144 U/L (38-126); Anion Gap 14.2 mEq/L (5-15); Aspartate Amino Transferase 69 U/L (14-36); Bilirubin,Total 0.9 mg/dl (0.2-1.3); Blood Urea Nitrogen 4 mg/dl (7-17); Carbon Dioxide 22 mmol/L (22.0-30.0); Creatinine Clearance Estimated 223 mL/min (50-200); Estimated Glomerular Filt Rate 140 ml/min (>60); GFR (African American) 169 ML/MIN (>60); Globulin 3.2 g/dL (1.3-3.2); Total Protein,Serum 7.3 g/dl (6.3-8.2)
[2021-09-20 08:32] LABS: Glucose 195 mg/dl (74-100)
[2021-09-20 08:45] LABS: RBC,Urine Occasional #/hpf (0-3); Squamous Epithelial Cell,Urine Occasional #/hpf (0-5)
--- NOTE | 2021-09-20 08:45 | PC.NURSE ---
LAb collected blood
--- NOTE | 2021-09-20 08:51 | PC.NURSE ---
Pt still agitated, tech at bedside 1:1
--- NOTE | 2021-09-20 08:55 | PC.NURSE ---
PT is currently sleeping
--- NOTE | 2021-09-20 09:00 | PC.NURSE ---
tech attempting to do EKG
[2021-09-20 09:04] LABS: Ammonia 73 umol/L (9-30)
[2021-09-20 09:07] LABS: Ethyl Alcohol < 10 mg/dl (0-10)
--- NOTE | 2021-09-20 09:07 | ECG_ITS ---
APPROVED REPORT Exam: Resting ECG HR:114 bpm ECG Measurements Heart Rate 114 AXES DE 132 P 55 QRSd 97 QRS 43 QT 329 T 48 QTc 397 Conclusion SINUS TACHYCARDIA ABNORMAL RHYTHM ECG UNCONFIRMED REPORT Electronically signed by : Derrick Beltran MD 09/21/2021 19:47:06
--- NOTE | 2021-09-20 09:07 | PC.NURSE ---
LAB CALLED WITH CRITICAL LACTIC 4.0 MD AWARE
--- NOTE | 2021-09-20 09:14 | PC.NURSE ---
EKG done at bedside. Pt was still enough to do EKG
[2021-09-20 09:20] LABS: Acetaminophen < 10 ug/ml (10-30); Salicylate < 1.0 mg/dL (2.0-20.0)
--- NOTE | 2021-09-20 09:25 | PC.NURSE ---
PT to ct with tech
[2021-09-20 09:35] LABS: Acetone, Serum (Rapid) None Detected (None Detect)
[2021-09-20 09:38] LABS: Creatine Kinase 71 U/L (30-135)
--- NOTE | 2021-09-20 09:42 | PC.NURSE ---
Restraints removed by nurse and ROM performed. Restraints replaced as patient become combative again.
--- NOTE | 2021-09-20 09:52 | PC.NURSE ---
Pt went to ct, was agitated RN gave med after pt was on ct table and given time to calm down before attempting CT. RN and tech had taken off restraints in order to have the Ct done. Restraints reapplied after CT was finished
--- NOTE | 2021-09-20 10:03 | PC.NURSE ---
Pt asleep at this time tech in room 1:1
--- NOTE | 2021-09-20 10:09 | PC.NURSE ---
tech obtained vitals
--- NOTE | 2021-09-20 10:16 | PC.NURSE ---
pt currently sleeping
--- NOTE | 2021-09-20 10:27 | PC.NURSE ---
MD came to see pt again, pt was still unable to respond properly
--- NOTE | 2021-09-20 10:33 | PC.NURSE ---
speaking with Dr Pisano at this time.
[2021-09-20 10:37] LABS: Coronavirus 19, PCR Not Detected (NotDetected); Influenza A, PCR Not Detected (NotDetected); Influenza B, PCR Not Detected (NotDetected)
--- NOTE | 2021-09-20 10:37 | PC.NURSE ---
pt sleeping in bed, tech at bedside
--- NOTE | 2021-09-20 10:41 | PC.NURSE ---
called lab for blood draw
--- NOTE | 2021-09-20 10:57 | PC.NURSE ---
obtained a new set of vitals, pt 1:1 still
--- NOTE | 2021-09-20 10:58 | HMH.PHAINT ---
MEDICATION RECONCILIATION COMPLETED ON PATIENT USING EXTERNAL FILL HISTORY FROM PHARMACY. -VALDO YANG, KAITD
--- NOTE | 2021-09-20 10:59 | PC.NURSE ---
SPOKE WITH DR UREÑA HE REQUEST LAB TO FREEZE A SPECIMEN FOR POSSIBLE LATER USE LAB NOTIFIED , HE ALSO WANTS A SERUM DRUG WHICH DR JOHNSON HAD ORDERED
--- NOTE | 2021-09-20 11:19 | PC.NURSE ---
pt is sleeping
--- NOTE | 2021-09-20 11:27 | PC.NURSE ---
medic in to hang med and fluids
--- NOTE | 2021-09-20 11:47 | PC.NURSE ---
HOUSE CALLED FOR BED
--- NOTE | 2021-09-20 11:57 | PC.NURSE ---
1144 bed assignment requested, room 204. all staff notified
--- NOTE | 2021-09-20 12:13 | PC.NURSE ---
D/C'd restraints at this time.
--- NOTE | 2021-09-20 12:16 | PC.NURSE ---
PT restraints came off 1210, grandfather is in the room. Pt is sleeping in the bed
--- NOTE | 2021-09-20 12:31 | PC.NURSE ---
Pt sleeping. Grandfather at bedside
--- NOTE | 2021-09-20 12:45 | P.CONPHA_ITS ---
[facility] Pharmacy VTE Monitoring - Patient Demographics Admission date: 09/20/21 Report Date: 09/20/21 Time: 12:45 Allergies/Adverse Reactions: Patient Allergies No Known Allergies Allergy (Verified 05/06/21 13:29) Height: 1.68 m Weight: 90.718 kg Patient Problems: Current Active Problems Encephalopathy (Acute) Hyperammonemia (Acute) Sinusitis (Acute) - VTE Risk Labs: VTE Related Lab Results Hgb 16.6 g/dL (12.2-16.2) H 09/20/21 07:50 Hct 50.8 % (37.0-47.0) H 09/20/21 07:50 Plt Count 229 K/mm3 (142-424) 09/20/21 07:50 BUN 4 mg/dl (7-17) L 09/20/21 07:50 Creatinine 0.50 mg/dl (0.52-1.04) L 09/20/21 07:50 Estimated Creat Clear 223 mL/min (50-200) 09/20/21 07:50 - Prophylaxis VTE Prophylaxis Ordered?: Yes Types of VTE Prophylaxis: TEDS Knee High Location of Applied Device: Bilateral Lower Extremeties
[2021-09-20 12:52] LABS: Reflex Lactic Add Lactic Reflex
[2021-09-20 13:22] LABS: POC Glucose,Bedside 163 (70-110)
[2021-09-20 13:32] LABS: Lactic Acid Follow Up (RFLX 1) 1.9 mmol/L (0.7-2.1)
--- NOTE | 2021-09-20 13:47 | PC.NURSE ---
PT CONFUSED AND IS UNABLE TO ANSWER QUESTIONS REGARDING MEDICATIONS OR HEALTH HISTORY
--- NOTE | 2021-09-20 15:56 | PC.NURSE ---
Courtesy jennifer hayes. Ice water given trash and linen taken out
[2021-09-20 17:06] LABS: POC Glucose,Bedside 128 (70-110)
--- NOTE | 2021-09-20 19:46 | XR_ITS ---
PROCEDURE INFORMATION: Exam: XR Right Foot Exam date and time: 09/20/2021 8:00 PM Age: 35 years old Clinical indication: Other: Brusing and redness; Additional info: Red right great toe, bruising TECHNIQUE: Imaging protocol: XR Right foot. Views: 1 or 2 views. COMPARISON: CR FTR3 FOOT-RT-3 VIEWS 04/10/2015 1:00 PM FINDINGS: Bones/joints: No acute fracture or dislocation. Old healed fracture of the proximal 2nd metatarsal. Joint spaces are preserved. Small plantar calcaneal spur. Soft tissues: Mild soft tissue swelling in the distal aspect of the foot. IMPRESSION: 1. Mild soft tissue swelling. 2. Calcaneal spur. 3. Old 2nd metatarsal fracture.
--- NOTE | 2021-09-20 20:30 | HMH.HP ---
*Admission Date: 09/20/21 *Chief complaint: altered mental status, overdose? *History of present illness: Ms. Cortes is a 35-year-old female who presented to the ER via EMS because of altered mental status. EMS reported that the patient was found by her grandfather to be altered, not making sense with her speech, and concern for unknown ingestion. Patient was unable to give any history. History obtained from family. Grandfather reported to the ER that he believes she was diabetic and sometimes uses insulin. Patient's daughter however reported to nursing that the patient sometimes has dreams like this but they do not ever last long. Work-up in the ER concerning for altered mental status. Not responding appropriately to exam. Somewhat combative until she received Ativan and Haldol. Labs relatively unremarkable except for elevated ammonia and slight elevation of liver enzymes. Initial tox screens negative. Admitted to medicine for further monitoring of suspected toxicologic or drug related encephalopathy. Patient was examined after she arrived to the floor. Has been several hours since admission. Had received a few doses of lactulose enema. She had not been responsive to nursing but on exam, she awoke briefly when her name was said loudly. She stated her name, birthdate, day of the month, and where she was. She did not know why she was at the hospital. She went back to sleep very quickly after this however. Focalizes to painful stimuli. But was otherwise somnolent during exam. Mentation waxed and waned during exam. Hemodynamically stable, afebrile. No Oxygen requirement or vomiting. [facility] History I have reviewed the patient's past medical history: Yes Medical History: Reports:: Depression, Diabetes Mellitus Type 2, MRSA Denies:: Cancer, Diabetes Mellitus Type 1, Internal Pacemaker, Seizures *Have you ever received a pneumonia vaccine?: No *Have you received a flu vaccine this season?: No Other Medical History: Denies: Blood Transfusion Reaction Other Surgeries: Yes: No Previous Surgery, , Sinus Surgery, Other. No: Pacemaker Amputation: No Fractures: No - *Social History Smoking Status: Current every day smoker Tobacco Type: cigarettes # Packs/Day (cigarettes): 1 Alcohol Intake: never Alcohol Intake Frequency:: other Substance Use Type: former substance user *Occupational Status:: unemployed Housing: house Household Members: children *Travel in the last 8 weeks: None - Psychiatric History Pschychiatric History:: Reports:: Depression Family Hx:: Cancer, Coronary Artery Disease, Hyperlipidemia, Hypertension Review of Systems - Review of Systems Review of systems:: pertinent systems reviewed and negative unless documented below (14 point review of systems performed, pertinent positives and negatives as per HPI) Meds Home Medications Medication Instructions Recorded Confirmed Type Pregabalin [Lyrica 300mg Cap] 300 mg PO BID 11/04/19 09/20/21 History Duloxetine HCl [Cymbalta] 60 mg PO BID 09/20/21 09/20/21 History Quetiapine Fumarate [Quetiapine 150 mg PO HS 09/20/21 09/20/21 History Fumarate ER] Allergies Allergy/AdvReac Type Severity Reaction Status Date / Time No Known Allergies Allergy Verified 05/06/21 13:29 Exam Vital signs and Labs for Last 24 Hours: Temp Pulse Resp BP Pulse Ox 99.0 F 103 H 18 112/65 97 09/20/21 15:13 09/20/21 16:00 09/20/21 15:13 09/20/21 15:13 09/20/21 15:13 Laboratory Results - last 24 hr 09/20/21 07:31: POC Glucose 204 H 09/20/21 07:49: Urine HCG, Qual Negative 09/20/21 07:50: WBC 11.1 H, RBC 5.24, Hgb 16.6 H, Hct 50.8 H, MCV 96.9, MCH 31.6 H, MCHC 32.7, RDW 13.6, Plt Count 229, MPV 9.2, Neut % (Auto) 73.8, Lymph % (Auto) 18.7, [place] % (Auto) 4.8, Eos % (Auto) 1.2, Baso % (Auto) 1.4, Neut # (Auto) 8.2 H, Lymph # (Auto) 2.1, [place] # (Auto) 0.5, Eos # (Auto) 0.1, Baso # (Auto) 0.2 09/20/21 07:50: Sodium 144, Potassium 4.2, Chloride 112 H, Carbon Dioxi
[2021-09-20 20:37] LABS: POC Glucose,Bedside 121 (70-110)
[2021-09-21] VITALS: BP 138/85; PULSE 90; PULSE 91; RESP 15; TEMP 37.4; O2SAT 95
--- NOTE | 2021-09-21 03:17 | PC.NURSE ---
Patient was able to tell me her name, , the month, the day and that she is in the hospital. Patient was unsure of which hospital. Patient stated that the year was 2022 . When asked about her situation, her response was my boyfriend was afraid I was going to choke on something ; when asked about what she was choking on patient stated a popsicle . Patient was asked if she lived with her boyfriend and patient stated I live alone and have been single for 23 years . Patient has continued sleep through the night with occasionally getting up to use the bathroom with standby assistance. She has been normal sinus when resting and when ambulating she reaches the 140's. Patient has not appeared to be in any distress thus far into this RN's shift. This RN will continue to monitor. Bed alarm is on and seizure pads are in place for safety.
[2021-09-21 04:00] VITALS: PULSE 90
[2021-09-21 05:00] VITALS: BMI 75.3
[2021-09-21 05:06] VITALS: BP 121/77; PULSE 70; RESP 16; TEMP 36.4; O2SAT 96
[2021-09-21 05:57] LABS: Basophils # 0.1 K/mm3 (0-0.2); Basophils % 1.3 % (0.1-2.0); Eosinophils # 0.1 K/mm3 (0.0-0.4); Eosinophils % 1.5 % (0.1-12.0); Hematocrit 44.2 % (37.0-47.0); Hemoglobin 14.5 g/dL (12.2-16.2); Lymphocytes % 32.9 % (10-50); Mean Corpuscular HGB Conc 32.9 g/dL (31.8-35.4); Mean Corpuscular Hemoglobin 31.4 pg (27.0-31.2); Mean Corpuscular Volume 95.6 fl (81-99); Monocytes # 0.4 K/mm3 (0.1-1.0); Monocytes % 4.2 % (1.7-9.3); Neutrophils # 5.4 K/mm3 (1.8-7.8); Neutrophils % 60.1 % (37.0-80.0); Platelet Count 240 K/mm3 (142-424); Red Blood Count 4.63 M/mm3 (4.20-5.40); Red Cell Distribution Width 13.8 % (11.5-17.5)
[2021-09-21 06:04] LABS: POC Glucose,Bedside 136 (70-110)
[2021-09-21 06:06] LABS: Alanine Aminotransferase 63 U/L (12-78); Albumin Level 3.6 g/dl (3.5-5.0); Albumin/Globulin Ratio 1.3 (1.1-1.8); Alkaline Phosphatase 116 U/L (38-126); Ammonia < 9 umol/L (9-30); Anion Gap 8.8 mEq/L (5-15); Aspartate Amino Transferase 75 U/L (14-36); Bilirubin,Total 1.1 mg/dl (0.2-1.3); Blood Urea Nitrogen 5 mg/dl (7-17); Calcium 8.4 mg/dl (8.4-10.2); Carbon Dioxide 22 mmol/L (22.0-30.0); Chloride 111 mmol/L (98-107); Creatinine Clearance Estimated 168 mL/min (50-200); Estimated Glomerular Filt Rate 181 ml/min (>60); GFR (African American) 219 ML/MIN (>60); Globulin 2.7 g/dL (1.3-3.2); Potassium 3.8 mmoL/L (3.5-5.1); Sodium 138 mmol/L (136-145); Total Protein,Serum 6.3 g/dl (6.3-8.2)
[2021-09-21 06:07] LABS: Glucose 141 mg/dl (74-100); Hemoglobin A1C 10.7 % (4.0-6.0)
[2021-09-21 07:02] LABS: VBG Base Excess -4.6 mmol/L (-2.4-2.3); VBG HCO3 19.9 mmol/L (23-30); VBG Oxygen Saturation 99.5 % (50-70); VBG PCO2 31.6 mmol/L (35-51); VBG PH 7.42 mmol/L (7.31-7.41); VBG PO2 203.8 mmol/L (28-40); VBG Total CO2 20.9 mmol/L (23-27)
[2021-09-21 08:00] VITALS: BP 165/89; PULSE 70; PULSE 97; RESP 22; TEMP 36.7; O2SAT 98
--- NOTE | 2021-09-21 08:51 | HMH.DCSUM ---
General - General Admission date:: 09/20/21 Discharge date: 09/21/21 HPI HPI: Ms. Cortes is a 35-year-old female who presented to the ER via EMS because of altered mental status. EMS reported that the patient was found by her grandfather to be altered, not making sense with her speech, and concern for unknown ingestion. Patient was unable to give any history. History obtained from family. Grandfather reported to the ER that he believes she was diabetic and sometimes uses insulin. Patient's daughter however reported to nursing that the patient sometimes has dreams like this but they do not ever last long. Work-up in the ER concerning for altered mental status. Not responding appropriately to exam. Somewhat combative until she received Ativan and Haldol. Labs relatively unremarkable except for elevated ammonia and slight elevation of liver enzymes. Initial tox screens negative. Admitted to medicine for further monitoring of suspected toxicologic or drug related encephalopathy. Patient was examined after she arrived to the floor. Has been several hours since admission. Had received a few doses of lactulose enema. She had not been responsive to nursing but on exam, she awoke briefly when her name was said loudly. She stated her name, birthdate, day of the month, and where she was. She did not know why she was at the hospital. She went back to sleep very quickly after this however. Focalizes to painful stimuli. But was otherwise somnolent during exam. Mentation waxed and waned during exam. Hemodynamically stable, afebrile. No Oxygen requirement or vomiting. Hospital Course Hospital Course: Patient was admitted, and did well after being admitted to the floor and having some fluids and a lactulose enema. Awoke, was alert and oriented x3. Overnight she did well, is able to do her own activities of daily living. This morning she is alert, oriented x3 and able to do all of her activities. 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 This patient is well-known to my practice, she left my practice approximately year and a half ago after we were going to discuss with her the fact that she was receiving gabapentin from multiple different providers. She never came back to my office for scheduled pill counts in discussion and establish care with a nurse practitioner office in [place]. I am concerned that this episode represents some type of substance abuse or overdose, and I expressed my concerns to the patient and she was tearful but did not acknowledge yes or no that should this was occurring. I expressed my concern about her ongoing health and her ability to take care of her family. However, from the short-term she is improved. We will discharge today with some lactulose orally to flush out ammonia. I am not sure why her ammonia levels are up I am not sure this accounts for mental status change. She will schedule follow-up with her nurse practitioner in [place]. I did discuss with her that her diabetes was out of control with A1c of over 10%. She will address this with her provider. Objective Vital signs: Temp Pulse Resp BP Pulse Ox 97.6 F 70 16 121/77 96 09/21/21 05:06 09/21/21 05:06 09/21/21 05:06 09/21/21 05:06 09/21/21 05:06 no acute distress - *Routine HEENT Exam Head: Present: normocephalic Eye: Present: EOMI, PERRL ENT: Present: mucous membranes moist - *Routine Neck Exam Present: supple - *Routine Respiratory Exam Present: CTA bilaterally - *Routine Cardiovascular Exam Present: RRR - *Routine Abdominal Exam Present: soft, normoactive bowel sounds. Absent: tenderness - *Routine Extremities Exam Absent: cyanosis, clubbing, edema Comments: Purple discoloration of toe as previously noted. Sensory neuropathy from her knees down. No skin wounds or open sores.
--- NOTE | 2021-09-21 09:16 | HMH.PHAINT ---
I spoke with the patient today about her medication list. We went over the new medication they are being sent home with and where the prescription was sent. Also went over the medications the patient is to continue. When we spoke, the patient did not have any questions. The patient was provided a copy of the medication list.
--- NOTE | 2021-09-21 09:57 | PC.NURSE ---
Notified pt's grandfather that pt was being discharged this morning. He stated he would be up here in approximately an hour- hour and a half. PIV removed, [place] removed and pt did urinate after removal. Discharge instructions provided, pt had no questions or concerns.
--- NOTE | 2021-09-22 12:50 | CARE MANAGER ---
Addendum entered by Alejandra Ivey RN 09/24/21 12:55: Attempted to contact patient related to hospital discharge follow up. Left VM message. JERILYN De La Cruz Addendum entered by Alejandra Ivey RN 09/23/21 13:12: Attempted to contact patient related to hospital discharge follow up. Left VM message. JERILYN De La Cruz Original Note: Attempted to contact patient related to hospital discharge follow up. Left VM message. JERILYN De La Cruz
== END 2021-09-21 10:23 | disposition home or self-care (01) ==
LOC: ER 10:43 → 2ND 13:39
PROVIDERS: Emergency Medicine; Admitting Provider Internal Medicine Adolescent Medicine; Emergency Provider Emergency Medicine; PCP Internal Medicine Adolescent Medicine; Visit Provider Internal Medicine Adolescent Medicine
DX: T50.904A Poisoning by unspecified drugs, medicaments and biological substances, undetermined, initial encounter (principal); G92.8 Other toxic encephalopathy; E11.9 Type 2 diabetes mellitus without complications; Z79.4 Long term (current) use of insulin; F17.210 Nicotine dependence, cigarettes, uncomplicated; Z79.899 Other long term (current) drug therapy; Z20.822 Contact with and (suspected) exposure to COVID-19; S90.121A Contusion of right lesser toe(s) without damage to nail, initial encounter; E72.20 Disorder of urea cycle metabolism, unspecified
CPT/HCPCS: 36415; 51702; 70450; 71045; 73620; 80053; 80305; 80329; 81001; 81025; 82009; 82140; 82550; 82803; 82962; 83036; 83605; 85025; 87040; 93005; 96365; 96367; 96375; 96376; 99291; C9803; G0378; J0696; U0003; U0005

== ENCOUNTER → 2021-09-30 15:16 | Outpatient (CLI) | payer MEDICAID, SELFPAY ==
[2021-09-30 16:14] LABS: HCG Qualitative, Serum Negative (Negative)
== END ==
PROVIDERS: PCP Internal Medicine Adolescent Medicine; Visit Provider Surgery
DX: Z01.812 Encounter for preprocedural laboratory examination (principal); Z11.52 Encounter for screening for COVID-19; L02.91 Cutaneous abscess, unspecified
CPT/HCPCS: 36415; 84703; C9803; U0003; U0005

== ENCOUNTER 2021-10-02 06:55 | Day surgery (SDC) | payer MEDICAID, SELFPAY ==
[2021-09-30 16:54] VITALS: BMI 35.4
[2021-10-02 07:22] VITALS: BP 131/77; PULSE 108; RESP 18; TEMP 36.1; O2SAT 93
[2021-10-02 08:43] VITALS: BP 115/70; PULSE 94; RESP 16; TEMP 36.4; O2SAT 90
--- NOTE | 2021-10-02 08:47 | HMH.OPNOTE ---
Date of procedure: 10/02/21 Pre-op Diagnosis:: Left breast abscessed hidradenitis Post-op Diagnosis:: Same Procedure performed:: Incision and drainage of left breast abscessed hidradenitis Surgeon:: Ten Montejo MD Anesthesia: MAC, local Estimated blood loss (mL): 5 Operative findings:: Shallow abscess along mid lower left breast. Tiny focal shallow abscess along lower left lateral breast. Operative note:: After informed consent was obtained the patient was taken to the operating room and placed in the supine position. Monitored anesthesia care ensued and her left breast was prepped and draped in a sterile fashion. After infiltration local anesthetic a shallow abscess cavity along the left mid lower breast was opened with electrocautery. Purulent fluid was obtained for Gram stain/culture. A tiny abscess along the left lower/lateral margin was opened in a similar manner. Each cavity was thoroughly irrigated and pressure dressings were applied. The patient was transferred recovery in stable condition. Condition: stable Disposition: PACU Specimens:: Fluid for Gram stain/culture Complications:: No immediate
[2021-10-02 08:53] VITALS: BP 129/98; PULSE 98; RESP 18; O2SAT 93
[2021-10-02 09:03] VITALS: BP 126/89; PULSE 83; RESP 16; O2SAT 94
[2021-10-02 09:14] VITALS: BP 118/79; PULSE 84; RESP 18; TEMP 36.4; O2SAT 96
--- NOTE | 2021-10-02 09:56 | P.PN_ITS ---
[facility] Anesthesia Checklist - Structural Data Admitted From: Home Planned Operative Procedure/s: I and D Left Breast Consent for Planned Operative Procedure(s) Verified: Yes Verified Documents: Surgical Consent - NPO Status Verified Time NPO: 00:00 - Additional verifications Anesthesia Reactions: No Hx Blood Transfusions: No Blood Transfusion Reaction: No - Airway Assessment Dentition: Poor Dentition - Neurological Assessment Level of Consciousness: Awake, Alert, Appropriate - Anesthesia Plan Anesthesia Risk discussed: Yes ASA Class: II Anesthesia Type: MAC [facility] History I have reviewed the patient's past medical history: Yes Medical History: Reports:: Depression, Diabetes Mellitus Type 1, Diabetes Mellitus Type 2, MRSA Denies:: Cancer, Internal Pacemaker, Seizures *Have you ever received a pneumonia vaccine?: Yes *Have you received a flu vaccine this season?: Yes Other Medical History: Denies: Blood Transfusion Reaction Anesthesia experience/problems:: none Other Surgeries: Yes: No Previous Surgery, , Sinus Surgery, Other. No: Pacemaker Amputation: No Fractures: No - *Social History Last grade of school completed: High school graduate Smoking Status: Current every day smoker Tobacco Type: cigarettes # Packs/Day (cigarettes): 1 Alcohol Intake: never Alcohol Intake Frequency:: other Substance Use Type: former substance user *Occupational Status:: employed Housing: house Household Members: children *Travel in the last 8 weeks: None - Psychiatric History Pschychiatric History:: Reports:: Depression Family Hx:: No significant family history
[2022-03-25 10:59] LABS: POC Glucose,Bedside 179 (70-110)
== END 2021-10-02 09:14 | disposition home or self-care (01) ==
LOC: OR 06:56
PROVIDERS: PCP Internal Medicine Adolescent Medicine; Visit Provider Surgery
PROC: (CPT 10061; principal; 2021-10-02 08:30)
DX: L73.2 Hidradenitis suppurativa (principal); F32.A Depression, unspecified; E10.9 Type 1 diabetes mellitus without complications; E11.9 Type 2 diabetes mellitus without complications; Z86.14 Personal history of Methicillin resistant Staphylococcus aureus infection; Z72.0 Tobacco use; Z79.899 Other long term (current) drug therapy
CPT/HCPCS: 10061; 82962; 87070; 87075; 87205; 96374; J2405

== ENCOUNTER 2021-12-31 06:48 | Emergency (ER) | payer OTHER, MEDICAID, SELFPAY ==
[2021-12-31] VITALS (8 sets, daily range): BP systolic 100–152; BP diastolic 47–96; PULSE 73–97; RESP 16–20; TEMP 36.9; O2SAT 95–98; BMI 29.5
--- NOTE | 2021-12-31 07:00 | PC.NURSE ---
Dr. Hinds s/w Dr Montejo
--- NOTE | 2021-12-31 07:44 | HMH.EDSKAF ---
ED Disposition Clinical Impression: Abscess of skin or subcutaneous tissue Qualifiers: Site of cutaneous abscess: trunk Site of cutaneous abscess of trunk: abdominal wall Qualified Code(s): L02.211 - Cutaneous abscess of abdominal wall Disposition: Home, Self-Care Condition on Discharge: Good Instructions: DI for Skin Abscess Additional Instructions: will arrange op surg Referrals: Sofya Recinos APRN [Primary Care Provider] - Ten Montejo MD [Staff Physician] - - Critical Care Critical Care Time: No Attestation: On 12/31/21, the high probability of a clinically significant, sudden or life threatening deterioration of the following system(s) required my full and direct attention, intervention and personal management. The time I documented below is in addition to time spent performing reported procedures but includes the following listed in this critical care notation. Medical Decision Making - Medical Records Medical records reviewed: Yes: I reviewed the patient's medical records. - [place] Inquiry Pt receiving controlled substance: No Vital Signs: 12/31/21 06:50 12/31/21 07:30 Temperature 98.5 F Temperature Source Oral Pulse Rate 97 H Pulse Rate [Right] 95 H Respiratory Rate 20 Blood Pressure 152/96 H Blood Pressure [Right Arm] 142/91 H Blood Pressure Mean 114 Blood Pressure Mean [Right Arm] 108 Blood Pressure Source [Right Arm] Automatic Cuff 02 Sat by Pulse Oximetry 97 98 Oxygen Delivery Method Room Air - Lab Data Lab results reviewed: Yes: I reviewed the patient's lab results. Orders (Tests/Meds): ED MEDICATIONS Generic Name Dose Route Start Last Admin Trade Name Freq PRN Reason Stop Dose Admin Sodium Chloride 10 ml 12/31/21 07:37 Sodium Chloride 0.9% 10ml Flush Syringe IV 01/30/22 07:36 NEEDED PRN Maintain IV Site ORDERS Category Date Time Status C-Reactive Protein Stat Lab 12/31/21 07:13 Ordered Complete Blood Count Auto Diff Stat Lab 12/31/21 07:13 Ordered Comprehensive Metabolic Panel Stat Lab 12/31/21 07:13 Ordered Erythrocyte Sedimentation Rate Stat Lab 12/31/21 07:13 Ordered Lactic Acid Stat Lab 12/31/21 07:13 Ordered Procalcitonin Stat Lab 12/31/21 07:13 Ordered Blood Culture Stat Micro 12/31/21 07:13 Ordered - Physician Consults Physician Consulted: stephanie Reason -: Pt condition Medical Decision Narrative: will treat and will have surg as out -pt Skin/Abscess/FB HPI - General Chief complaint: Skin/Abscess/Foreign Body Stated complaint: Boil on Abdomin Time Seen by Provider: 12/31/21 07:00 Mode of Arrival: Family Vehicle Source of Information: Patient, Medical Record Limitations: No Limitations Description of Symptoms (Recalled from ER Triage Doc. by RN): Pt c/o boil present to abd that has been present for 1 wk. STates she gets these sometimes and Dr. Montejo has had to go to surgery for I&D. - History of Present Illness HPI narrative: recurrent skin infections and has hx of mrsa MD complaint: abscess/boil Onset (ago): day(s) Location: generalized Severity: similar to previous episodes Associated symptoms: denies other symptoms Treatments prior to arrival: antibiotic - Related Data Home Medications Medication Instructions Recorded Confirmed Pregabalin [Lyrica 300mg Cap] 300 mg PO BID 11/04/19 10/02/21 Duloxetine HCl [Cymbalta] 60 mg PO BID 09/20/21 10/02/21 Quetiapine Fumarate [Quetiapine 150 mg PO HS 09/20/21 10/02/21 Fumarate ER] clindamycin HCL [Clindamycin HCl] 300 mg PO BID 09/30/21 10/02/21 rifAMPin [Rifampin] 300 mg PO BID 09/30/21 10/02/21 Previous Rx's Medication Instructions Recorded Lactulose [Lactulose 20gm/30ml 20 gm PO DAILYP PRN #150 ml 09/21/21 Oral Soln] Allergies Allergy/AdvReac Type Severity Reaction Status Date / Time No Known Allergies Allergy Verified 10/02/21 07:21 [facility] History - Hepatitis A Screen Attestation statement:: This patie
--- NOTE | 2021-12-31 07:47 | PC.NURSE ---
JEANINE ALEJANDRA at examining pt, patriciarn also present
--- NOTE | 2021-12-31 07:58 | PC.NURSE ---
notified malena avendano in pre-op area pt wanted to have I&D done tomorrow as an oupt. Ludivina request pt has a covid swab for pre-op purposes one before d/c from. States she is going to come down and speak with pt.
--- NOTE | 2021-12-31 08:01 | PC.NURSE ---
malena avendano at speaking with pt.
[2021-12-31 08:11] LABS: Alanine Aminotransferase 23 U/L (12-78); Albumin Level 3.9 g/dl (3.5-5.0); Albumin/Globulin Ratio 1.2 (1.1-1.8); Alkaline Phosphatase 93 U/L (38-126); Anion Gap 10.6 mEq/L (5-15); Aspartate Amino Transferase 30 U/L (14-36); Bilirubin,Total 0.5 mg/dl (0.2-1.3); Blood Urea Nitrogen 4 mg/dl (7-17); Calcium 9.1 mg/dl (8.4-10.2); Carbon Dioxide 29 mmol/L (22.0-30.0); Chloride 103 mmol/L (98-107); Creatinine Clearance Estimated 221 mL/min (50-200); Estimated Glomerular Filt Rate 139 ml/min (>60); GFR (African American) 168 ML/MIN (>60); Globulin 3.3 g/dL (1.3-3.2); Glucose 130 mg/dl (74-100); Lactic Acid 0.7 mmol/L (0.7-2.1); Potassium 3.6 mmoL/L (3.5-5.1); Sodium 139 mmol/L (136-145); Total Protein,Serum 7.2 g/dl (6.3-8.2)
[2021-12-31 08:16] LABS: Basophils # 0.1 K/mm3 (0-0.2); Basophils % 0.5 % (0.1-2.0); C-Reactive Protein 38.5 mg/L (0-4); Eosinophils # 0.2 K/mm3 (0.0-0.4); Eosinophils % 1.5 % (0.1-12.0); Hematocrit 44.7 % (37.0-47.0); Hemoglobin 15.4 g/dL (12.2-16.2); Lymphocytes # 3.6 K/mm3 (0.7-4.5); Lymphocytes % 29.2 % (10-50); Mean Corpuscular HGB Conc 34.4 g/dL (31.8-35.4); Mean Corpuscular Hemoglobin 30.8 pg (27.0-31.2); Mean Corpuscular Volume 89.5 fl (81-99); Mean Platelet Volume 8.1 fl (7.4-10.4); Monocytes # 0.7 K/mm3 (0.1-1.0); Monocytes % 5.7 % (1.7-9.3); Neutrophils # 7.8 K/mm3 (1.8-7.8); Neutrophils % 63.2 % (37.0-80.0); Platelet Count 373 K/mm3 (142-424); Red Blood Count 4.99 M/mm3 (4.20-5.40); White Blood Count 12.3 K/mm3 (4.8-10.8)
[2021-12-31 08:27] LABS: HCG Qualitative, Serum Negative (Negative)
[2021-12-31 08:29] LABS: Procalcitonin 0.056 ng/mL (0.0-2.0)
[2021-12-31 08:56] LABS: Erythrocyte Sedimentation Rate 13 mm/hr (0-20)
== END 2021-12-31 10:35 | disposition home or self-care (01) ==
PROVIDERS: Emergency Medicine; Emergency Provider Emergency Medicine; PCP Registered Nurse
DX: L02.211 Cutaneous abscess of abdominal wall (principal); Z86.14 Personal history of Methicillin resistant Staphylococcus aureus infection; F32.A Depression, unspecified; E10.9 Type 1 diabetes mellitus without complications; E11.9 Type 2 diabetes mellitus without complications
CPT/HCPCS: 80053; 83605; 84145; 84703; 85025; 85651; 86140; 87040; 96365; 96366; 96375; 99284; C9803; U0003; U0005

== ENCOUNTER 2022-01-01 09:41 | Day surgery (SDC) | payer OTHER, MEDICAID, SELFPAY ==
[2022-01-01] VITALS (9 sets, daily range): BP systolic 128–164; BP diastolic 74–98; PULSE 85–93; RESP 16–18; TEMP 36.4–36.8; O2SAT 93–99; BMI 29.5
[2022-01-01 11:41] LABS: POC Glucose,Bedside 108 (70-110)
--- NOTE | 2022-01-01 13:05 | HMH.OPNOTE ---
Date of procedure: 01/01/22 Pre-op Diagnosis:: Abscessed hidradenitis along right lower abdomen and left inferior breast. Post-op Diagnosis:: Same Procedure performed:: Incision and drainage of abscessed hidradenitis along right lower abdomen and left inferior breast Surgeon:: Ten Montejo MD Anesthesia: LMA Estimated blood loss (mL): 10 Operative findings:: Right lower abdomen abscessed hidradenitis with extension into the shallow subcutaneous tissue Left inferior breast abscessed hidradenitis with extension into the shallow subcutaneous tissue Operative note:: After informed consent was obtained the patient was taken to the operating room and placed in the supine position. General anesthesia with laryngeal mask airway was achieved. Her right lower abdomen and left breast were prepped and draped in a sterile fashion. An elliptical incision was made along the central portion of the right lower abdominal wall abscess. A pocket of purulence in the shallow subcutaneous tissue was entered. The fluid was obtained for gram stain/culture. The cavity was thoroughly evacuated and packed with dry gauze. Entire region was infiltrated with 1% lidocaine. The left inferior breast abscess was treated in the same manner. Dressings were applied at both sites and the patient was transferred to recovery in stable condition. Condition: stable Disposition: PACU Specimens:: Fluid for gram stain/culture Complications:: No immediate
--- NOTE | 2022-01-01 13:14 | HMH.ANESI ---
[facility] Anesthesia Record Part I Intake, IV Amount: 400 Estimated blood loss (mL): 1 Urine output (mL): 0 Blood Pressure: 128/85 SaO2: 93 Pulse Rate: 85 Respiratory Rate: 16 Temperature: 98.3 F Patient is:: Drowsy Stable to PACU at:: 13:10
[2022-01-04 07:01] VITALS: BP 156/98; PULSE 91; TEMP 36.5
--- NOTE | 2022-01-04 07:01 | P.PN_ITS ---
[facility] Anesthesia Record Part II Discharge Time: 13:40 Destination: Surgical Day Care (OP Surgery) PACU nurse assessment reviewed?: Yes Patient Condition:: Good Anesthesia Complications:: None Swallowing reflex intact?: Yes Cyanosis?: No Blood Pressure: 156/98 Pulse Rate: 91 Temperature: 97.7 F Mental Status: Alert & Oriented Pain level:: 0 Nausea and/or vomitting:: None Intake, IV Amount: 0
== END 2022-01-01 14:20 | disposition home or self-care (01) ==
LOC: OR 09:46
PROVIDERS: PCP Registered Nurse; Visit Provider Surgery
PROC: (CPT 10061; principal; 2022-01-01 12:00)
DX: L73.2 Hidradenitis suppurativa (principal); L02.219 Cutaneous abscess of trunk, unspecified; Z72.0 Tobacco use; N61.1 Abscess of the breast and nipple
CPT/HCPCS: 10061; 82962; 87070; 87075; 87077; 87186; 87205; 96374

== ENCOUNTER 2022-03-15 14:27 | Emergency (ER) | payer OTHER, MEDICAID, SELFPAY ==
[2022-03-15 14:30] VITALS: BP 151/92; PULSE 88; RESP 18; TEMP 37.2; O2SAT 100; BMI 29.5
--- NOTE | 2022-03-15 15:02 | HMH.EDGENADL ---
Discharge Plan Disposition Patient Disposition: Home, Self-Care Condition: Good Prescriptions Prescriptions: New amoxicillin-pot clavulanate 875-125 mg tablet 1 tab PO BID Qty: 20 0RF ciprofloxacin HCl 0.2 % dropperette 5 drp otic (ear) BID 7 Days Qty: 1 0RF No Action pregabalin 300 MG capsule 300 mg PO BID rifampin 300 MG capsule 300 mg PO BID ketorolac 10 MG tablet 10 mg PO Q6H hydrocodone-acetaminophen 1 TAB tablet 1 - 2 tab PO Q6HP PRN (Reason: post-op pain; dressing changes) Qty: 9 0RF duloxetine 60 MG capsule,delayed release(DR/EC) 60 mg PO BID quetiapine 150 MG tablet extended release 24 hr 150 mg PO HS lactulose 20 GM/30 ML solution 20 gm PO DAILYP PRN (Reason: Constipation) Qty: 150 0RF Referrals Follow up/Referrals: Sofya Recinos APRN [Primary Care Provider] - See instructions Clinical Impressions Clinical Impression: Otitis externa Instructions Patient Instructions: DI for Otitis Media (Middle Ear Infection)-Child, DI for Otitis Externa, Ciprofloxacin Otic, Amoxicillin and Clavulanic Acid Print Language Print Language: Salvadorean Discharge ED Provider: Asher Patel General Adult HPI General Chief complaint: Ear Stated complaint: right ear pain Time Seen by Provider: 03/15/22 15:02 History of Present Illness HPI narrative: 36-year-old female, history of diabetes, has had previous otitis media and cellulitis of the right facial area. She presents today with right ear pain ongoing for about 3 days and gradually worsening, is associated with discharge from the ear canal. She denies fevers, chills, nausea, vomiting or other symptoms, denies any tenderness over the mastoid area, denies headache, or hearing loss. Has not taken any medications for this thus far Related Data Home Medications Medication Instructions Recorded Confirmed pregabalin 300 mg capsule 300 mg PO BID Pain 11/04/19 01/01/22 duloxetine 60 mg capsule,delayed 60 mg PO BID Pain 09/20/21 01/01/22 release quetiapine 150 mg tablet,extended 150 mg PO HS MOOD 09/20/21 01/01/22 release 24 hr rifampin 300 mg capsule 300 mg PO BID ABX 04/06/22 07/08/22 ketorolac 10 mg tablet 10 mg PO Q6H Pain 01/01/22 01/01/22 Previous Rx's Medication Instructions Recorded lactulose 20 gram/30 mL oral 20 gm PO DAILYP PRN Constipation 09/21/21 solution #150 mL hydrocodone 5 mg-acetaminophen 325 1 - 2 tab PO Q6HP PRN post-op 01/01/22 mg tablet pain; dressing changes #9 tabs amoxicillin 875 mg-potassium 1 tab PO BID #20 tabs 03/15/22 clavulanate 125 mg tablet ciprofloxacin HCl 0.2 % ear drops 5 drp otic (ear) BID 7 days #1 ea 03/15/22 in a dropperette Allergies Allergy/AdvReac Type Severity Reaction Status Date / Time No Known Allergies Allergy Verified 01/01/22 11:11 [facility] Social History Smoking Status: Current every day smoker tobacco type: cigarettes packs per day: 1 alcohol intake: never substance use type: heroin current occupational status: employed Travel in the last 8 weeks: None household members: children housing: house caffeine: Yes ROS Obtained: Yes Systems reviewed as appropriate & no additional complaints except as documented Constitutional Constitutional: Reports system reviewed and no additional complaints, except as documented Eyes Eyes: Reports system reviewed and no additional complaints, except as documented ENT Ears, Nose, Mouth, and Throat: Reports as per HPI Comments: Pain in the right ear and discharge from ear canal Cardiovascular Cardiovascular: Reports system reviewed and no additional complaints, except as documented Respiratory Respiratory: Reports system reviewed and no additional complaints, except as documented Gastrointestinal Gastrointestingal: Reports system reviewed and no additional complaints, except as documented Genitourinary Female Genitourin
[2022-03-15 15:33] VITALS: BP 125/85; PULSE 82; RESP 18; TEMP 37.2; O2SAT 91
== END 2022-03-15 15:33 | disposition home or self-care (01) ==
PROVIDERS: Emergency Provider Emergency Medicine; PCP Registered Nurse
DX: H60.91 Unspecified otitis externa, right ear (principal)

== ENCOUNTER 2022-03-17 17:51 | Emergency (ER) | payer MEDICAID, OTHER, SELFPAY ==
[2022-03-17 18:51] VITALS: BP 166/78; PULSE 88; RESP 18; TEMP 36.8; O2SAT 95; BMI 29.5
--- NOTE | 2022-03-17 19:00 | HMH.EDGENADL ---
Discharge Plan Disposition Patient Disposition: Home, Self-Care Prescriptions Prescriptions: New ondansetron 4 mg Tablet,Disintegrating 4 mg PO Q8H PRN (Reason: Nausea) Qty: 15 0RF No Action pregabalin 300 MG capsule 300 mg PO BID rifampin 300 MG capsule 300 mg PO BID ketorolac 10 MG tablet 10 mg PO Q6H hydrocodone-acetaminophen 1 TAB tablet 1 - 2 tab PO Q6HP PRN (Reason: post-op pain; dressing changes) Qty: 9 0RF amoxicillin-pot clavulanate 875-125 mg tablet 1 tab PO BID Qty: 20 0RF ciprofloxacin HCl 0.2 % dropperette 5 drp otic (ear) BID 7 Days Qty: 1 0RF duloxetine 60 MG capsule,delayed release(DR/EC) 60 mg PO BID quetiapine 150 MG tablet extended release 24 hr 150 mg PO HS lactulose 20 GM/30 ML solution 20 gm PO DAILYP PRN (Reason: Constipation) Qty: 150 0RF Referrals Follow up/Referrals: Nelson oMrton MD [Physician] - See instructions Sofya Recinos APRN [Primary Care Provider] - See instructions Activity Restrictions/Add. Instructions Additional Instructions/Restrictions: Return for worsening nausea and vomiting within 8 hours. Otherwise follow-up with nuclear equipment design engineer within the next few days for reassessment of otitis externa. Clinical Impressions Clinical Impression: Otitis externa Discharge ED Provider: Jaime Ferguson General Adult HPI General Chief complaint: Ear Stated complaint: vomiting and R ear Pain Time Seen by Provider: 03/17/22 19:00 History of Present Illness HPI narrative: 36-year-old female presents with nausea vomiting. She says that she has been treated with Augmentin and Ciprodex for an ear infection in her right ear for the last few days however she developed severe nausea and vomiting over the last 24 hours. No fever or chills. No headache no pain behind her ears. No purulent discharge. She says she is taking her medicines as she wants to. Related Data Home Medications Medication Instructions Recorded Confirmed pregabalin 300 mg capsule 300 mg PO BID Pain 11/04/19 01/01/22 duloxetine 60 mg capsule,delayed 60 mg PO BID Pain 09/20/21 01/01/22 release quetiapine 150 mg tablet,extended 150 mg PO HS MOOD 09/20/21 01/01/22 release 24 hr rifampin 300 mg capsule 300 mg PO BID ABX 09/30/21 01/01/22 ketorolac 10 mg tablet 10 mg PO Q6H Pain 01/01/22 01/01/22 Previous Rx's Medication Instructions Recorded lactulose 20 gram/30 mL oral 20 gm PO DAILYP PRN Constipation 09/21/21 solution #150 mL hydrocodone 5 mg-acetaminophen 325 1 - 2 tab PO Q6HP PRN post-op 01/01/22 mg tablet pain; dressing changes #9 tabs amoxicillin 875 mg-potassium 1 tab PO BID #20 tabs 03/15/22 clavulanate 125 mg tablet ciprofloxacin HCl 0.2 % ear drops 5 drp otic (ear) BID 7 days #1 ea 03/15/22 in a dropperette ondansetron 4 mg disintegrating 4 mg PO Q8H PRN Nausea #15 tabs 03/17/22 tablet Allergies Allergy/AdvReac Type Severity Reaction Status Date / Time No Known Allergies Allergy Verified 01/01/22 11:11 [facility] Social History Smoking Status: Current every day smoker tobacco type: cigarettes packs per day: 1 alcohol intake: never substance use type: heroin current occupational status: employed Travel in the last 8 weeks: None household members: children housing: house caffeine: Yes ROS Obtained: Yes All systems reviewed & no additional complaints except as documented Physical Exam General General appearance: alert and in no apparent distress Eye Eye exam: Present PERRL and EOMI ENT ENT exam: Present normal exam, normal oropharynx and other (Right otitis externa and right ear no mastoiditis or tenderness noticed) Neck Neck exam: Present normal inspection Chest Chest inspection: Present symmetric chest wall rise Respiratory Respiratory exam: Present normal lung sounds bilaterally; Absent respiratory distress Cardiovasc
--- NOTE | 2022-03-17 19:03 | HMH.EDGENADL ---
Discharge Plan Disposition Patient Disposition: Home, Self-Care Prescriptions Prescriptions: New ondansetron 4 mg Tablet,Disintegrating 4 mg PO Q8H PRN (Reason: Nausea) Qty: 15 0RF No Action pregabalin 300 MG capsule 300 mg PO BID rifampin 300 MG capsule 300 mg PO BID ketorolac 10 MG tablet 10 mg PO Q6H hydrocodone-acetaminophen 1 TAB tablet 1 - 2 tab PO Q6HP PRN (Reason: post-op pain; dressing changes) Qty: 9 0RF amoxicillin-pot clavulanate 875-125 mg tablet 1 tab PO BID Qty: 20 0RF ciprofloxacin HCl 0.2 % dropperette 5 drp otic (ear) BID 7 Days Qty: 1 0RF duloxetine 60 MG capsule,delayed release(DR/EC) 60 mg PO BID quetiapine 150 MG tablet extended release 24 hr 150 mg PO HS lactulose 20 GM/30 ML solution 20 gm PO DAILYP PRN (Reason: Constipation) Qty: 150 0RF Referrals Follow up/Referrals: Nelson Morton MD [Physician] - See instructions Sofya Recinos APRN [Primary Care Provider] - See instructions Activity Restrictions/Add. Instructions Additional Instructions/Restrictions: Return for worsening nausea and vomiting within 8 hours. Otherwise follow-up with research professional within the next few days for reassessment of otitis externa. Clinical Impressions Clinical Impression: Otitis externa Discharge ED Provider: Jaime Ferguson General Adult HPI General Chief complaint: Ear Stated complaint: vomiting and R ear Pain Time Seen by Provider: 03/17/22 19:00 Mode of Arrival: Ambulatory Source of Information: Patient Limitations: No Limitations Description of Symptoms (Recalled from ER Triage Doc. by RN): Pt reports R ear pain worse, was seen in ER on Tuesday. Pt reports now having nausea/vomitting and chills. Pt reports using ear drops and oral antibiotics as prescribed. History of Present Illness HPI narrative: 36-year-old female recently diagnosed with otitis externa and otitis media. She has no fever chills chest pain shortness of air or abdominal pain. No pain behind her ear no headache no neck stiffness. She says the nausea and vomiting is worse when she turns her head. And it is positional Related Data Home Medications Medication Instructions Recorded Confirmed pregabalin 300 mg capsule 300 mg PO BID Pain 11/04/19 01/01/22 duloxetine 60 mg capsule,delayed 60 mg PO BID Pain 09/20/21 01/01/22 release quetiapine 150 mg tablet,extended 150 mg PO HS MOOD 09/20/21 01/01/22 release 24 hr rifampin 300 mg capsule 300 mg PO BID ABX 09/30/21 01/01/22 ketorolac 10 mg tablet 10 mg PO Q6H Pain 01/01/22 01/01/22 Previous Rx's Medication Instructions Recorded lactulose 20 gram/30 mL oral 20 gm PO DAILYP PRN Constipation 09/21/21 solution #150 mL hydrocodone 5 mg-acetaminophen 325 1 - 2 tab PO Q6HP PRN post-op 01/01/22 mg tablet pain; dressing changes #9 tabs amoxicillin 875 mg-potassium 1 tab PO BID #20 tabs 03/15/22 clavulanate 125 mg tablet ciprofloxacin HCl 0.2 % ear drops 5 drp otic (ear) BID 7 days #1 ea 03/15/22 in a dropperette ondansetron 4 mg disintegrating 4 mg PO Q8H PRN Nausea #15 tabs 03/17/22 tablet Allergies Allergy/AdvReac Type Severity Reaction Status Date / Time No Known Allergies Allergy Verified 01/01/22 11:11 [facility] Social History Smoking Status: Current every day smoker tobacco type: cigarettes packs per day: 1 alcohol intake: never substance use type: heroin current occupational status: employed Travel in the last 8 weeks: None household members: children housing: house caffeine: Yes ROS Obtained: Yes All systems reviewed & no additional complaints except as documented Physical Exam General General appearance: alert and in no apparent distress Eye Eye exam: Present PERRL and EOMI ENT ENT exam: Present normal exam, normal oropharynx and other (Otitis externa on left tympanic membrane. No evidence o
--- NOTE | 2022-03-17 19:11 | PC.NURSE ---
shift change report given to malena alvarado and philiprn
[2022-03-17 19:30] VITALS: BP 148/88; PULSE 81; RESP 16; O2SAT 98
--- NOTE | 2022-03-17 19:34 | PC.NURSE ---
PT REPORTS THAT SHE WAS GIVEN EAR DROPS PREVIOUSLY AND WOULD PREFER TO USE HER DROPS FROM HOME THAT SHE ALREADY HAS. MADE AWARE.
[2022-03-17 19:50] VITALS: BP 131/84; PULSE 81; RESP 16; O2SAT 99
[2022-03-17 20:01] VITALS: BP 152/96; PULSE 104; RESP 16; O2SAT 98
[2022-03-17 20:10] LABS: Basophils # 0.5 K/mm3 (0-0.2); Basophils % 3.3 % (0.1-2.0); Eosinophils # 0.1 K/mm3 (0.0-0.4); Eosinophils % 0.6 % (0.1-12.0); Hematocrit 55.3 % (37.0-47.0); Lymphocytes # 2.1 K/mm3 (0.7-4.5); Lymphocytes % 13.7 % (10-50); Mean Corpuscular HGB Conc 32.8 g/dL (31.8-35.4); Mean Corpuscular Hemoglobin 30.4 pg (27.0-31.2); Mean Corpuscular Volume 92.7 fl (81-99); Monocytes # 0.5 K/mm3 (0.1-1.0); Monocytes % 3.6 % (1.7-9.3); Neutrophils # 11.9 K/mm3 (1.8-7.8); Neutrophils % 78.8 % (37.0-80.0); Platelet Count 421 K/mm3 (142-424); Red Blood Count 5.97 M/mm3 (4.20-5.40); Red Cell Distribution Width 13.9 % (11.5-17.5); White Blood Count 15.1 K/mm3 (4.8-10.8)
[2022-03-17 20:12] VITALS: BP 154/71; PULSE 81; RESP 18; TEMP 36.8; O2SAT 95
[2022-03-17 20:13] LABS: Chloride 100 mmol/L (98-107); MANUAL DIFFERENTIAL MANUAL DIFFERENTIAL (MANUAL DIFF); Potassium 4.6 mmoL/L (3.5-5.1); Sodium 140 mmol/L (136-145)
[2022-03-17 20:16] LABS: Blood Urea Nitrogen 11 mg/dl (7-17); Creatinine Clearance Estimated 221 mL/min (50-200); Estimated Glomerular Filt Rate 139 ml/min (>60); GFR (African American) 168 ML/MIN (>60)
[2022-03-17 20:17] LABS: Anion Gap 18.6 mEq/L (5-15); Calcium 9.6 mg/dl (8.4-10.2); Carbon Dioxide 26 mmol/L (22.0-30.0); Glucose 96 mg/dl (74-100)
[2022-03-17 22:58] LABS: Lymphocytes % 19 % (10-50); Neutrophils % 81 % (42-76); Platelet Estimate Normal; RBC Morphology Normal; Total Cells Counted 100
[2022-03-17 23:47] LABS: Hemoglobin 18.1 g/dL (12.2-16.2)
== END 2022-03-17 20:24 | disposition home or self-care (01) ==
PROVIDERS: Emergency Provider Emergency Medicine; PCP Registered Nurse
DX: H60.91 Unspecified otitis externa, right ear (principal)
CPT/HCPCS: 80048; 85007; 85025; 96361; 96374; 99284

== ENCOUNTER 2022-06-16 12:20 | Emergency (ER) | payer MEDICAID, SELFPAY ==
--- NOTE | 2022-06-16 12:58 | EXP.UTC ---
Discharge Plan Disposition Patient Disposition: Home, Self-Care Condition: Good Prescriptions Prescriptions: New benzonatate [benzonatate] 100 mg capsule 100 mg PO TIDP PRN (Reason: Cough) Qty: 30 0RF methylprednisolone 4 mg Tablets,Dose Pack 4 mg PO DIRECTED Qty: 21 0RF amoxicillin-pot clavulanate 875-125 mg Tablet 1 tab PO Q12H Qty: 20 0RF albuterol sulfate [Ventolin HFA] 90 mcg/actuation HFA aerosol inhaler 2 puff inhalation Q6H PRN (Reason: shortness of breath or wheezing) Qty: 6.7 0RF albuterol sulfate [Ventolin HFA] 90 mcg/actuation HFA aerosol inhaler 2 puff inhalation Q6H PRN (Reason: shortness of breath or wheezing) Qty: 6.7 0RF Discontinued ketorolac 10 MG tablet 10 mg PO Q6H amoxicillin-pot clavulanate 875-125 mg tablet 1 tab PO BID Qty: 20 0RF ciprofloxacin HCl 0.2 % dropperette 5 drp otic (ear) BID 7 Days Qty: 1 0RF ondansetron 4 mg Tablet,Disintegrating 4 mg PO Q8H PRN (Reason: Nausea) Qty: 15 0RF No Action pregabalin 300 MG capsule 300 mg PO BID rifampin 300 MG capsule 300 mg PO BID hydrocodone-acetaminophen 1 TAB tablet 1 - 2 tab PO Q6HP PRN (Reason: post-op pain; dressing changes) Qty: 9 0RF duloxetine 60 MG capsule,delayed release(DR/EC) 60 mg PO BID quetiapine 150 MG tablet extended release 24 hr 150 mg PO HS lactulose 20 GM/30 ML solution 20 gm PO DAILYP PRN (Reason: Constipation) Qty: 150 0RF Referrals Follow up/Referrals: Provider,Referral, MD [Primary Care Provider] - See instructions Activity Restrictions/Add. Instructions Additional Instructions/Restrictions: Drink plenty of fluids. Take tylenol or ibuprofen for pain or fever. Take the medications as directed. Follow up with your regular doctor. GO TO THE ER FOR ANY WORSENING SYMPTOMS Don't start the oral steroids until tomorrow, since you had the shot here today. Clinical Impressions Clinical Impression: Pharyngitis, Laryngitis, Acute viral syndrome Instructions Patient Instructions: Laryngitis, DI for Laryngitis Discharge ED Provider: Xavi Bullock [facility] HPI General Stated complaint: Sore throat, loss of voice, congestion Time Seen by Provider: 06/16/22 12:58 History of Present Illness Provider Complaint: she states that for the past 3 days she has had sinus congestion, sore throat, runny nose and ear pain. Related Data Home Medications Medication Instructions Recorded Confirmed pregabalin 300 mg capsule 300 mg PO BID Pain 11/04/19 01/01/22 duloxetine 60 mg capsule,delayed 60 mg PO BID Pain 09/20/21 01/01/22 release quetiapine 150 mg tablet,extended 150 mg PO HS MOOD 09/20/21 01/01/22 release 24 hr rifampin 300 mg capsule 300 mg PO BID ABX 09/30/21 01/01/22 Previous Rx's Medication Instructions Recorded lactulose 20 gram/30 mL oral 20 gm PO DAILYP PRN Constipation 09/21/21 solution #150 mL hydrocodone 5 mg-acetaminophen 325 1 - 2 tab PO Q6HP PRN post-op 01/01/22 mg tablet pain; dressing changes #9 tabs albuterol sulfate 90 mcg/actuation 2 puff inhalation Q6H PRN 06/16/22 aerosol inhaler (Ventolin HFA) shortness of breath or wheezing #6.7 grams albuterol sulfate 90 mcg/actuation 2 puff inhalation Q6H PRN 06/16/22 aerosol inhaler (Ventolin HFA) shortness of breath or wheezing #6.7 grams amoxicillin 875 mg-potassium 1 tab PO Q12H #20 tabs 06/16/22 clavulanate 125 mg tablet benzonatate 100 mg capsule 100 mg PO TIDP PRN Cough #30 caps 06/16/22 methylprednisolone 4 mg tablets in 4 mg PO DIRECTED #21 tabs 06/16/22 a dose pack Allergies Allergy/AdvReac Type Severity Reaction Status Date / Time No Known Allergies Allergy Verified 01/01/22 11:11 [facility] Disclaimer: The information contained in this section may have been updated after the patient was seen, as this information can be updated by other users. Social History Smok
[2022-06-16 12:59] VITALS: BP 133/87; PULSE 105; RESP 18; TEMP 37.2; O2SAT 95; BMI 29.5
[2022-06-16 13:12] LABS: UTC Strep Screen (Rapid) Negative (Negative)
[2022-06-16 14:13] VITALS: BP 133/87; PULSE 105; RESP 18; TEMP 37.2
== END 2022-06-16 14:13 | disposition home or self-care (01) ==
PROVIDERS: Emergency Provider Nurse Practitioner Family
DX: J02.9 Acute pharyngitis, unspecified (principal); J04.0 Acute laryngitis
CPT/HCPCS: 87880; 99212; G0463; J0696

== ENCOUNTER → 2022-07-09 12:40 | Outpatient (CLI) | payer MEDICAID, SELFPAY ==
--- NOTE | 2022-07-09 12:43 | XR_ITS ---
FINAL REPORT CLINICAL HISTORY: foot pain, hammer toe COMPARISON: 09/20/2021 FINDINGS: RIGHT FOOT 3 views of the right foot were obtained. There is a chronic fracture of the 2nd metatarsal. Mild degenerative changes are seen. There is lateral angulation of the distal 1st digit. Chronic calcification is seen at the 1st interphalangeal joint. There are multiple hammertoes. There is no acute bony abnormality. Small calcaneal spurs are noted. IMPRESSION: Degenerative changes without acute bony abnormality. Reviewed, Interpreted and Dictated by Jonny Garrett III, MD Transcribed by Flory Munoz Authenticated and . [facility]
== END ==
PROVIDERS: PCP Registered Nurse; Visit Provider Orthopaedic Surgery
DX: M79.671 Pain in right foot (principal)
CPT/HCPCS: 73630

== ENCOUNTER → 2022-07-29 09:00 | Outpatient (CLI) | payer MEDICAID, SELFPAY ==
--- NOTE | 2022-07-29 09:01 | MR_ITS ---
FINAL REPORT CLINICAL HISTORY: foot pain [id number]. NO INJURY OR TRAUMA. FINDINGS: Multiplanar MR imaging of the right foot was performed without contrast. There is a focus of bone marrow edema in the distal inferior calcaneus with a 5 mm focus of abnormal T1 signal in this region, may represent osteochondral lesion versus small nondisplaced fracture. There is also bone marrow edema in the distal cuboid with probable osteochondral lesion in this region. Mild hallux valgus deformity is identified. The flexor and extensor tendons are intact. No ligamentous injury is identified. The musculature is intact. The plantar aponeurosis is intact. No soft tissue mass or cyst is identified. IMPRESSION: Osteochondral lesion versus small nondisplaced fracture of the distal inferior calcaneus. Probable osteochondral lesion of the distal cuboid. Reviewed, Interpreted and Dictated by Jonny Garrett III, MD Transcribed by Agnieszka Arroyo Authenticated and [facility]
== END ==
PROVIDERS: PCP Orthopaedic Surgery; Visit Provider Orthopaedic Surgery
DX: M79.671 Pain in right foot (principal); L84 Corns and callosities
CPT/HCPCS: 73718

== ENCOUNTER 2022-12-03 13:27 | Emergency (ER) | payer MEDICAID, SELFPAY ==
[2022-12-03 13:28] VITALS: BP 172/101; PULSE 121; RESP 16; TEMP 36.7; O2SAT 96; BMI 32.5
[2022-12-03 13:39] VITALS: BP 172/101; PULSE 133; O2SAT 97
--- NOTE | 2022-12-03 13:45 | HMH.EDAMS ---
Discharge Plan Disposition Patient Disposition: Home, Self-Care Condition: Good Chief Complaint: Altered Mental Status Prescriptions Prescriptions: No Action phentermine 37.5 mg tablet 37.5 mg PO DAILY Label Comments: TAKE ONE TABLET BY MOUTH DAILY ibuprofen 800 mg tablet 800 mg PO Q8H Label Comments: TAKE ONE TABLET BY MOUTH EVERY 8 HOURS NEEDED --TAKE WITH FOOD-- pregabalin 200 mg capsule 200 mg PO TID Label Comments: TAKE ONE CAPSULE BY MOUTH THREE TIMES DAILY MAY CAUSE DROWSINESS rifampin 300 MG capsule 300 mg PO BID hydrocodone-acetaminophen 1 TAB tablet 1 - 2 tab PO Q6HP PRN (Reason: post-op pain; dressing changes) Qty: 9 0RF benzonatate [benzonatate] 100 mg capsule 100 mg PO TIDP PRN (Reason: Cough) Qty: 30 0RF methylprednisolone 4 mg Tablets,Dose Pack 4 mg PO DIRECTED Qty: 21 0RF albuterol sulfate [Ventolin HFA] 90 mcg/actuation HFA aerosol inhaler 2 puff inhalation Q6H PRN (Reason: shortness of breath or wheezing) Qty: 6.7 0RF duloxetine 60 MG capsule,delayed release(DR/EC) 60 mg PO BID lactulose 20 GM/30 ML solution 20 g PO DAILYP PRN (Reason: Constipation) Qty: 150 0RF Referrals Follow up/Referrals: Gordon Elam MD [Primary Care Provider] - See instructions Activity Restrictions/Add. Instructions Additional Instructions/Restrictions: Please follow-up with your primary care doctor as needed. Your work-up today in the emergency department not show any life-threatening or dangerous conditions. Your blood glucose was slightly elevated at 177. This is not unusual since you had a soft drink prior to arrival and you have diet-controlled diabetes. The remainder of your lab work was unremarkable. It could be that your symptoms are from the combination of taking Suboxone and a benzodiazepine together. Speak to your primary care doctor about tapering off the benzodiazepine over the next week or so. Do not stop benzodiazepines abruptly. Please return to the emergency department if you worsen in any way. Clinical Impressions Clinical Impression: Medication side effects Instructions Patient Instructions: DI for Altered Mental Status Discharge ED Provider: Daly Dowd Altered Mental Status HPI General Chief Complaint: Altered Mental Status Stated Complaint: confusion Time Seen by Provider: 12/03/22 13:33 Mode of Arrival: Family Vehicle History of Present Illness HPI narrative: LysedThe patient presents to the emergency department complaining of intermittent confusion. She was recently started on Ativan after her mother's . Her mother from metastatic lung cancer. The mother had confusion symptoms prior to her . Therefore the patient is very anxious about her also having brain metastases. Of cancer. She has a history of drug abuse but has been clean since 2013. She takes Suboxone. She denies fevers or headache. Related Data Home Medications Medication Instructions Recorded Confirmed duloxetine 60 mg capsule,delayed 60 mg PO BID Pain 09/20/21 07/30/22 release rifampin 300 mg capsule 300 mg PO BID ABX 09/30/21 07/30/22 ibuprofen 800 mg tablet 800 mg PO Q8H 07/23/22 07/30/22 phentermine 37.5 mg tablet 37.5 mg PO DAILY 07/23/22 07/30/22 pregabalin 200 mg capsule 200 mg PO TID 07/23/22 07/30/22 Previous Rx's Medication Instructions Recorded lactulose 20 gram/30 mL oral 20 g (30 mL) PO DAILYP PRN 09/21/21 solution Constipation #150 mL hydrocodone 5 mg-acetaminophen 325 1 - 2 tab PO Q6HP PRN post-op 01/01/22 mg tablet pain; dressing changes #9 tabs albuterol sulfate 90 mcg/actuation 2 puff inhalation Q6H PRN 06/16/22 aerosol inhaler (Ventolin HFA) shortness of breath or wheezing #6.7 grams benzonatate 100 mg capsule 100 mg PO TIDP PRN Cough #30 caps 06/16/22 methylprednisolone 4 mg tablets in 4 mg PO DIRECTED #21 tabs 06/16/22 a dose pack Allergies Allergy/AdvReac Type Severity Re
[2022-12-03 13:50] VITALS: BP 125/90; PULSE 121; O2SAT 97
[2022-12-03 14:00] VITALS: BP 138/85; PULSE 111; O2SAT 95
[2022-12-03 14:05] LABS: Alanine Aminotransferase 23 U/L (12-78); Albumin/Globulin Ratio 1.2 (1.1-1.8); Alkaline Phosphatase 112 U/L (38-126); Aspartate Amino Transferase 36 U/L (14-36); Bilirubin,Total 0.8 mg/dl (0.2-1.3); Blood Urea Nitrogen 3 mg/dl (7-17); Calcium 8.8 mg/dl (8.4-10.2); Carbon Dioxide 28 mmol/L (22.0-30.0); Chloride 103 mmol/L (98-107); Creatinine Clearance Estimated 240 mL/min (50-200); Estimated Glomerular Filt Rate 138 ml/min (>60); GFR (African American) 167 ML/MIN (>60); Globulin 3.4 g/dL (1.3-3.2); Glucose 177 mg/dl (74-100); Sodium 140 mmol/L (136-145); Total Protein,Serum 7.4 g/dl (6.3-8.2)
[2022-12-03 14:10] LABS: Basophils # 0.1 K/mm3 (0-0.2); Basophils % 0.5 % (0.1-2.0); Eosinophils # 0.2 K/mm3 (0.0-0.4); Eosinophils % 1.4 % (0.1-12.0); Hematocrit 49.2 % (37.0-47.0); Hemoglobin 15.5 g/dL (12.2-16.2); Lymphocytes % 34.1 % (10-50); Mean Corpuscular HGB Conc 31.5 g/dL (31.8-35.4); Mean Corpuscular Volume 92.2 fl (81-99); Mean Platelet Volume 8.8 fl (7.4-10.4); Monocytes # 0.6 K/mm3 (0.1-1.0); Monocytes % 4.9 % (1.7-9.3); Neutrophils # 6.9 K/mm3 (1.8-7.8); Neutrophils % 59.1 % (37.0-80.0); Platelet Count 328 K/mm3 (142-424); Red Blood Count 5.34 M/mm3 (4.20-5.40); White Blood Count 11.6 K/mm3 (4.8-10.8)
[2022-12-03 14:19] LABS: Microscopic, Urine URINE MICROSCOPIC (MICROSCOPIC)
[2022-12-03 14:22] LABS: Appearance,Urine CLEAR (Clear); Blood, Urine Negative (Negative); Color,Urine YELLOW (Yellow); Glucose,Urine (UA) Negative (Negative); Ketones,Urine Negative (Negative); Leukocyte Esterase,Urine Negative (Negative); Nitrate,Urine Negative (Negative); PH,Urine 5.5 (5.0-8.5); Protein,Urine TRACE (Negative); Specific Gravity, Urine >= 1.030 (1.005-1.030)
[2022-12-03 14:28] LABS: Urine Pregnancy, HCG Qual. Negative (Negative)
--- NOTE | 2022-12-03 14:30 | CT_ITS ---
FINAL REPORT TECHNIQUE: Noncontrast exam CLINICAL HISTORY: Intermittent confusion COMPARISON: 09/20/2021 FINDINGS: No abnormal density is seen. Ventricles are normal. There is no hemorrhage. No mass effect is seen. Bone windows show no evidence of fracture. There is bilateral sinusitis present, moderately improved since the prior CT of August 2021. IMPRESSION: No acute findings Moderate improvement in bilateral sinusitis since August 2021. Reviewed, Interpreted and Dictated by Nadeen Robles MD Transcribed by Zuleyka Bullard Authenticated and [facility]
[2022-12-03 14:36] LABS: Amphetamine/Metha Screen,Urine Negative ng/ml (<1000); Bilirubin,Urine 1+ (Negative)
[2022-12-03 14:37] LABS: Barbiturates Screen,Urine Negative ng/ml (<200); Benzodiazepines Screen,Urine Negative ng/ml (<200)
[2022-12-03 14:38] LABS: Cannabinoid Screen,Urine Negative ng/ml (<50)
[2022-12-03 14:39] LABS: Cocaine Screen,Urine Negative ng/ml (<300); Methadone Screen,Urine Negative ng/ml (<300)
[2022-12-03 14:40] LABS: Opiate Screen,Urine Negative ng/ml (<300)
[2022-12-03 14:41] LABS: Phencyclidine Screen,Urine Negative ng/ml (<25)
[2022-12-03 14:43] LABS: WBC,Urine Occasional #/hpf (0-3)
--- NOTE | 2022-12-03 14:56 | PC.NURSE ---
checked on pt gave a pepsi family at bedside
[2022-12-03 15:18] VITALS: BP 136/81; PULSE 81; RESP 16; TEMP 36.8; O2SAT 98
== END 2022-12-03 15:23 | disposition home or self-care (01) ==
PROVIDERS: Emergency Provider Emergency Medicine; PCP Family Medicine
DX: R41.82 Altered mental status, unspecified (principal); T42.4X5A Adverse effect of benzodiazepines, initial encounter; E11.65 Type 2 diabetes mellitus with hyperglycemia
CPT/HCPCS: 70450; 80053; 80305; 81001; 81025; 85025; 96360; 99284; 99285

== ENCOUNTER 2023-01-02 19:16 | Emergency (ER) | payer MEDICAID, SELFPAY ==
[2023-01-02 19:18] VITALS: BP 215/101; PULSE 125; RESP 19; TEMP 36.9; O2SAT 97; BMI 29.5
--- NOTE | 2023-01-02 19:37 | HMH.EDEXTP ---
Discharge Plan Disposition Patient Disposition: Home, Self-Care Condition: Fair Prescriptions Prescriptions: No Action lorazepam 1 mg tablet 2 mg PO HSP PRN (Reason: Anxiety) Patient Comments: TAKE TWO TABLETS BY MOUTH ONCE DAILY AT BEDTIME NEEDED MAY CAUSE DROWSINESS duloxetine 60 mg capsule,delayed release(DR/EC) 60 mg PO BID Patient Comments: TAKE ONE CAPSULE BY MOUTH TWICE DAILY pregabalin 200 mg capsule 200 mg PO TID Patient Comments: TAKE ONE CAPSULE BY MOUTH THREE TIMES DAILY MAY CAUSE DROWSINESS Referrals Follow up/Referrals: Gordon Elam MD [Primary Care Provider] - See instructions Clinical Impressions Clinical Impression: Closed trimalleolar fracture of ankle Qualifiers: Encounter type: subsequent encounter Instructions Patient Instructions: DI for Ankle Fracture Print Language Print Language: Malay Discharge ED Provider: Narendra Benítez Extremity Problem HPI General Chief complaint: Extremity Problem,Nontraumatic Stated complaint: right ankle pain Time Seen by Provider: 01/02/23 19:37 Mode of Arrival: Wheelchair Source of Information: Patient Limitations: No Limitations Description of Symptoms (Recalled from ER Triage Doc. by RN): 37 F presents from home with c/o of acute/chronic pain to her right foot. She has significant history of trauma to this foot. Most recently, on 10/26/2022 she had surgery to this foot and placed in a walking boot. While outside she stepped in a hole and fractured her foot. She was then seen in the ED and placed in an orthoglass splint with a surgery scheduled for this coming Tuesday. Today, she is experiencing significant pain to her right foot. Cap refill is delayed to 5 seconds, temperature is cool, but color is appropriate. History of Present Illness HPI Narrative: Patient presents the emergency department with right ankle pain since she had surgery 2 weeks ago. The patient reports that she had a trimalleolar fracture. The patient had been recovering from her surgery in October. She advises that she was wearing a boot but she fell in a hole and injured her ankle. Complaint: extremity pain Onset (ago): week(s) (2) Consistency: constant Location: right and lower extremity Severity scale (1-10): 6 Relieving factors: nothing Exacerbating factors: range of motion Related Data Home Medications Medication Instructions Recorded Confirmed duloxetine 60 mg capsule,delayed 60 mg PO BID Depression 01/02/23 01/02/23 release lorazepam 1 mg tablet 2 mg PO HSP PRN Anxiety 01/02/23 01/02/23 pregabalin 200 mg capsule 200 mg PO TID Pain 01/02/23 01/02/23 Allergies Allergy/AdvReac Type Severity Reaction Status Date / Time No Known Allergies Allergy Verified 07/30/22 13:03 [facility] Disclaimer: The information contained in this section may have been updated after the patient was seen, as this information can be updated by other users. Social History Smoking Status: Current every day smoker tobacco type: cigarettes packs per day: 1 alcohol intake: never substance use type: heroin current occupational status: employed Travel in the last 8 weeks: None household members: children housing: house caffeine: Yes ROS Obtained: Yes Systems reviewed as appropriate & no additional complaints except as documented Musculoskeletal Musculoskeletal: Reports arthralgias Physical Exam General General appearance: alert and in no apparent distress Head Head exam: atraumatic Eye Eye exam: Present EOMI Neck Neck exam: Present normal inspection Respiratory Respiratory exam: Absent respiratory distress Cardiovascular Cardiovascular exam: Present other (Normal color) Abdominal Exam Abdominal exam: Present soft Extremities Exam Extremities exam: Present tenderness and other (Good cap refill good distal pulses) Neurological Exam Neurological exam: Present alert and oriente
[2023-01-02 20:00] VITALS: BP 157/79; PULSE 108; O2SAT 96
[2023-01-02 20:15] VITALS: BP 154/87; PULSE 97; RESP 19; TEMP 36.9; O2SAT 98
== END 2023-01-02 20:24 | disposition home or self-care (01) ==
PROVIDERS: Emergency Provider Emergency Medicine; PCP Family Medicine
DX: S82.851A Displaced trimalleolar fracture of right lower leg, initial encounter for closed fracture (principal); W18.42XA Slipping, tripping and stumbling without falling due to stepping into hole or opening, initial encounter
CPT/HCPCS: 99283; 99284

== ENCOUNTER 2023-01-28 15:21 | Emergency (ER) | payer MEDICAID, SELFPAY ==
[2023-01-28 15:24] VITALS: BP 144/100; PULSE 113; RESP 18; TEMP 36.8; O2SAT 97; BMI 29.5
[2023-01-28 16:00] VITALS: BP 150/93; PULSE 96; O2SAT 95
--- NOTE | 2023-01-28 16:01 | HMH.EDGENADL ---
Discharge Plan Disposition Patient Disposition: Home, Self-Care Prescriptions Prescriptions: New lidocaine 5 % ointment 1 applic topical TID 7 Days Qty: 50 1RF No Action lorazepam 1 mg tablet 2 mg PO HSP PRN (Reason: Anxiety) Patient Comments: TAKE TWO TABLETS BY MOUTH ONCE DAILY AT BEDTIME NEEDED MAY CAUSE DROWSINESS duloxetine 60 mg capsule,delayed release(DR/EC) 60 mg PO BID Patient Comments: TAKE ONE CAPSULE BY MOUTH TWICE DAILY pregabalin 200 mg capsule 200 mg PO TID Patient Comments: TAKE ONE CAPSULE BY MOUTH THREE TIMES DAILY MAY CAUSE DROWSINESS Referrals Follow up/Referrals: Gordon Elam MD [Primary Care Provider] - See instructions Activity Restrictions/Add. Instructions Additional Instructions/Restrictions: Increase gabapentin to 300 mg 3 times daily until follow-up with orthopedics next week. Take Tylenol 1000 mg every 6 hours (4 times daily) and ibuprofen 400 mg every 6 hours (4 times daily) as needed with food and water to prevent GI upset and kidney damage. Lidocaine cream has been sent to the pharmacy, apply this 3 times daily to help with some of this pain. Call your family doctor to establish care for this visit to the emergency department and schedule follow-up within 48 hours to ensure improvement. If you have any worsening of your condition or any other concerning signs or symptoms, return to the emergency department or your primary care doctor for further evaluation. Clinical Impressions Clinical Impression: Neuropathic pain of right foot Discharge ED Provider: Jamie Sky General Adult HPI General Chief complaint: Fall Stated complaint: Surg on R Foot( Mo ago) Pair Time Seen by Provider: 01/28/23 15:26 Mode of Arrival: EMS Source of Information: Patient and EMS Limitations: No Limitations Description of Symptoms (Recalled from ER Triage Doc. by RN): pt presents with c/o right foot arch pain and right heel pain. pt with hx of multiple surgeries on right foot and ankle. surgery done at [facility] with dr philippe. symptoms began a few days ago. pt states she has follow up with [facility] but can not wait until appoitment time. History of Present Illness HPI narrative: Is a 37-year-old female with recent history of trimalleolar fracture status post ORIF presenting with pain. Patient states that couple days prior to arrival, she started having burning pain in her foot. Since that time, she has had shooting pains radiate from her heel down into the sole of her foot. No associated trauma. Patient on Lyrica, Cymbalta, Percocet for pain. Follows up with orthopedics next week, but burning pain is bad enough she came to the emergency department for further evaluation. Related Data Home Medications Medication Instructions Recorded Confirmed duloxetine 60 mg capsule,delayed 60 mg PO BID Depression 01/02/23 01/02/23 release lorazepam 1 mg tablet 2 mg PO HSP PRN Anxiety 01/02/23 01/02/23 pregabalin 200 mg capsule 200 mg PO TID Pain 01/02/23 01/02/23 Previous Rx's Medication Instructions Recorded lidocaine 5 % topical ointment 1 applic topical TID 7 days #50 01/28/23 grams Allergies Allergy/AdvReac Type Severity Reaction Status Date / Time No Known Allergies Allergy Verified 07/30/22 13:03 [facility] Disclaimer: The information contained in this section may have been updated after the patient was seen, as this information can be updated by other users. Social History Smoking Status: Current every day smoker tobacco type: cigarettes packs per day: 1 alcohol intake: never substance use type: heroin current occupational status: employed Travel in the last 8 weeks: None household members: children housing: house caffeine: Yes ROS Obtained: Yes All systems reviewed & no additional complaints except as documented Physical Exam General General appearance: alert, in n
[2023-01-28 16:30] VITALS: BP 144/99; PULSE 110; O2SAT 97
[2023-01-28 16:41] VITALS: BP 144/99; PULSE 113; RESP 18; TEMP 36.8
== END 2023-01-28 16:42 | disposition home or self-care (01) ==
PROVIDERS: Emergency Provider Emergency Medicine; PCP Family Medicine
DX: G62.9 Polyneuropathy, unspecified (principal); M79.671 Pain in right foot; F17.210 Nicotine dependence, cigarettes, uncomplicated
CPT/HCPCS: 99283

== ENCOUNTER 2023-04-23 14:10 | Emergency (ER) | payer MEDICAID, SELFPAY ==
[2023-04-23 14:22] VITALS: BP 131/76; PULSE 83; RESP 18; TEMP 36.6; O2SAT 95; BMI 29.5
--- NOTE | 2023-04-23 14:36 | EXP.UTC ---
Discharge Plan Disposition Patient Disposition: Home, Self-Care Condition: Good Prescriptions Prescriptions: New prednisone [prednisone] 20 mg tablet 20 mg PO BID Qty: 10 0RF No Action duloxetine 60 mg capsule,delayed release(DR/EC) 60 mg PO BID Patient Comments: TAKE ONE CAPSULE BY MOUTH TWICE DAILY pregabalin 200 mg capsule 200 mg PO TID Patient Comments: TAKE ONE CAPSULE BY MOUTH THREE TIMES DAILY MAY CAUSE DROWSINESS buprenorphine-naloxone 8-2 mg tablet, sublingual 2 tab SUBLINGUAL DAILY Patient Comments: DISSOLVE 2 TABLETS UNDER THE TONGUE ONCE DAILY Referrals Follow up/Referrals: Gordon Elam MD [Primary Care Provider] - See instructions Activity Restrictions/Add. Instructions Additional Instructions/Restrictions: No sign of a bacterial infection. Likely viral. Viruses can take 7-14 days to run their course. Nasal saline and bulb syringe or nose Emily to remove nasal drainage to help with nasal congestion. Hard to eat, drink, sleep with nasal congestion so important to keep this cleaned out. Monitor temp. Tylenol or Motrin as needed for pain or fever Encourage fluids, water, Gatorade, Powerade, Pedialyte if infant/toddler/child Warm salt water gargles Warm fluids Sore throat lozenges Sleep elevated Humidifier/vaporizer Follow-up immediately for new or worsening symptoms or no noticeable improvement over the next 48-72 hours. Clinical Impressions Clinical Impression: URI (upper respiratory infection) Qualifiers: URI type: unspecified viral URI Qualified Code(s): J06.9 - Acute upper respiratory infection, unspecified Instructions Patient Instructions: DI for Viral Upper Respiratory Infection -- Adult Discharge ED Provider: Danie ([facility])[place] [facility] [place] General Stated complaint: sore throat, cough, runny nose, bilateral ear pain Mode of Arrival: Ambulatory Source of Information: Patient Limitations: No Limitations Time Seen by Provider: 04/23/23 14:37 Description of Symptoms (Recalled from Triage Doc. by RN): Cough, ear pain, runny nose, sore throat, and feels like she is lossing her voice. HEENT Symptoms (Recalled from RN notes): Yes Resp Symptoms (Recalled from RN notes): No Skin Symptoms (Recalled from RN notes): No MS Symptoms (Recalled from RN notes): No Functional Status (Recalled from RN notes): n/a History of Present Illness Provider Complaint: 37 yr old female presents for c/o Cough, ear pain, runny nose, sore throat, and feels like she is losing her voice. Related Data Home Medications Medication Instructions Recorded Confirmed duloxetine 60 mg capsule,delayed 60 mg PO BID Depression 01/02/23 04/23/23 release pregabalin 200 mg capsule 200 mg PO TID Pain 01/02/23 04/23/23 buprenorphine 8 mg-naloxone 2 mg 2 tab sublingual DAILY 04/23/23 04/23/23 sublingual tablet Previous Rx's Medication Instructions Recorded prednisone 20 mg tablet 20 mg PO BID #10 tabs 04/23/23 Allergies Allergy/AdvReac Type Severity Reaction Status Date / Time No Known Allergies Allergy Verified 04/23/23 14:32 Worker's Comp Is this a Worker's Comp case?: No [facility] Disclaimer: The information contained in this section may have been updated after the patient was seen, as this information can be updated by other users. 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
[2023-04-23 15:24] VITALS: BP 131/76; PULSE 83; RESP 18; TEMP 36.6; O2SAT 95
== END 2023-04-23 15:00 | disposition home or self-care (01) ==
PROVIDERS: Emergency Provider Nurse Practitioner Family; PCP Family Medicine
DX: J06.9 Acute upper respiratory infection, unspecified (principal); R05.9 Cough, unspecified; F17.210 Nicotine dependence, cigarettes, uncomplicated; H92.03 Otalgia, bilateral
CPT/HCPCS: 99212; 99214; G0463

== ENCOUNTER 2023-08-24 13:56 | Outpatient (CLI) | payer MEDICAID, SELFPAY ==
[2023-08-24 14:51] LABS: Basophils # 0.1 K/mm3 (0-0.2); Basophils % 0.4 % (0.1-2.0); Eosinophils # 0.2 K/mm3 (0.0-0.4); Eosinophils % 1.7 % (0.1-12.0); Hematocrit 43.5 % (37.0-47.0); Hemoglobin 14.5 g/dL (12.2-16.2); Lymphocytes # 3.7 K/mm3 (0.7-4.5); Lymphocytes % 33.6 % (10-50); Mean Corpuscular HGB Conc 33.4 g/dL (31.8-35.4); Mean Corpuscular Hemoglobin 30.1 pg (27.0-31.2); Mean Corpuscular Volume 90.2 fl (81-99); Mean Platelet Volume 8.5 fl (7.4-10.4); Monocytes # 0.7 K/mm3 (0.1-1.0); Monocytes % 6.2 % (1.7-9.3); Neutrophils # 6.4 K/mm3 (1.8-7.8); Platelet Count 276 K/mm3 (142-424); Red Blood Count 4.83 M/mm3 (4.20-5.40); Red Cell Distribution Width 14.4 % (11.5-17.5); White Blood Count 11.1 K/mm3 (4.8-10.8)
[2023-08-24 14:55] LABS: Urine Pregnancy, HCG Qual. Negative (Negative)
[2023-08-24 15:45] LABS: Anion Gap 9.1 mEq/L (5-15); Blood Urea Nitrogen 8 mg/dl (7-17); Calcium 9.2 mg/dl (8.4-10.2); Carbon Dioxide 26 mmol/L (22.0-30.0); Chloride 104 mmol/L (98-107); Estimated Glomerular Filt Rate 112 ml/min (>60); GFR (African American) 135 ML/MIN (>60); Glucose 161 mg/dl (74-100); Potassium 4.1 mmoL/L (3.5-5.1); Sodium 135 mmol/L (136-145)
== END 2023-08-24 23:59 ==
PROVIDERS: PCP Family Medicine; Visit Provider Surgery
DX: L02.411 Cutaneous abscess of right axilla (principal); Z87.2 Personal history of diseases of the skin and subcutaneous tissue
CPT/HCPCS: 36415; 80048; 81025; 85025

== ENCOUNTER 2023-08-26 09:23 | Day surgery (SDC) | payer MEDICAID, SELFPAY ==
[2023-08-26] VITALS (11 sets, daily range): BP systolic 108–138; BP diastolic 63–86; PULSE 87–100; RESP 16–18; TEMP 36.5–36.6; O2SAT 90–96; BMI 29.5
[2023-08-26] MEDS: LACTATED RINGERS 1000ML 1,000 ML 100 ML IV (10:06)
[2023-08-26 10:25] LABS: POC Glucose,Bedside 175 (70-110)
[2023-08-26] MEDS: CEFAZOLIN SODIUM 2 GM in 0.9 % SODIUM CHLORIDE 100 ML IV (10:33)
[2023-08-26] MEDS: LIDOCAINE 1% 20ML MDV 20 ML ×2 (10:44→10:55)
--- NOTE | 2023-08-26 10:49 | P.PNANES_ITS ---
[facility] Disclaimer: The information contained in this section may have been updated after the patient was seen, as this information can be updated by other users. Medical History (Updated 08/26/23 @ 10:11 by Yuly Xiong RN) Diabetes mellitus, type 2 Surgical History H/O fasciotomy History of bunionectomy History of History of incision and drainage S/P ankle joint replacement Family History (Updated 08/26/23 @ 10:11 by Yuly Xiong RN) Other Family history of acute heart failure Family history of hypertension Social History (Updated 08/26/23 @ 10:11 by Yuly Xiong RN) Smoking Status: Current every day smoker tobacco type: cigarettes packs per day: 1 alcohol intake: never substance use type: heroin current occupational status: employed Travel in the last 8 weeks: None household members: children housing: house caffeine: Yes [facility] Anesthesia Checklist Patient Identification Patient Identification: Arm Band Structural Data Admitted From: Home Planned Operative Procedure/s: I&D Right Axillary Abscess Consent for Planned Operative Procedure(s) Verified: Yes Verified Documents: Surgical Consent and History and Physical NPO Status Verified Time NPO: 00:00 Additional verifications Anesthesia Reactions: No Hx Blood Transfusions: No Blood Transfusion Reaction: No Airway Assessment Mallampati Score:: Class II C-Spine Mobility Assessed: Yes TMJ Mobility Assessed: Yes Dentition: Good Dentition Neurological Assessment Level of Consciousness: Awake and Alert Anesthesia Plan Anesthesia Risk discussed: Yes Anesthesia Plan: Verified ASA Class: II Anesthesia Type: General
--- NOTE | 2023-08-26 11:03 | EXP.OP.NOTE ---
Date of procedure: 08/26/23 Pre-op Diagnosis:: Right axillary hidradenitis with abscess Post-op Diagnosis:: Same Procedure performed:: Incision and drainage/debridement of right axillary hidradenitis with abscess Surgeon:: Ten Montejo MD CASE MANAGEMENT SOCIAL WORKER:: Rik Salazar Anesthesia: local and LMA Estimated blood loss (mL): 10 Operative findings:: Hidradenitis with pocket of purulence and deep subcutaneous tissue Operative note:: After informed consent was obtained the patient was taken to the operating room and placed in the supine position. Her right axillary region was prepped and draped in a sterile fashion. After infiltration with local anesthetic an elliptical incision was made around the inflamed hidradenitis tissue/abscess. The deep subcutaneous tissue was dissected with electrocautery. A deep pocket of purulence was opened. The overlying tissue was debrided. Electrocautery was utilized to achieve hemostasis. The wound was packed with Kerlix which was then infiltrated with 1% lidocaine. Dressings were applied and the patient was transferred to recovery in stable condition. Condition: stable Disposition: PACU Specimens:: None for pathology Complications:: No immediate
--- NOTE | 2023-08-26 11:09 | EXP.ANES.I ---
[facility] Anesthesia Record Part I Anesthesia Record I Intake, IV Amount: 400 Hydration: Adequate Estimated blood loss (mL): 5 Urine output (mL): 0 Blood Products used (#): none Blood Pressure: 138/83 SaO2: 91 Pulse Rate: 99 Airway Patency: Patent Respiratory Rate: 16 Temperature: 97.8 F Patient is:: Drowsy and Stable Stable to PACU at:: 11:00
[2023-08-26 11:34] LABS: POC Glucose,Bedside 149 (70-110)
[2023-08-26] MEDS: MORPHINE 2MG/ML SYRINGE 2 MG IV (11:34)
--- NOTE | 2023-08-26 14:23 | P.PNANES_ITS ---
[facility] Anesthesia Record Part II Anesthesia Record Part II Discharge Time: 11:40 Destination: Surgical Day Care (OP Surgery) PACU nurse assessment reviewed?: Yes Patient Condition:: Good Anesthesia Complications:: None Swallowing reflex intact?: Yes Airway Patency: Patent Cyanosis?: No Blood Pressure: 138/76 SaO2: 96 Respiratory Rate: 16 Pulse Rate: 96 Temperature: 97.7 F Mental Status: Alert & Oriented Pain level:: 3 Nausea and/or vomitting:: None Intake, IV Amount: 0 Hydration: Adequate
== END 2023-08-26 12:10 | disposition home or self-care (01) ==
PROVIDERS: PCP Family Medicine; Visit Provider Surgery
PROC: (CPT 10061; principal; 2023-08-26 11:00)
DX: L73.2 Hidradenitis suppurativa (principal); L02.411 Cutaneous abscess of right axilla; E11.9 Type 2 diabetes mellitus without complications
CPT/HCPCS: 10061; 82962; 96374; J2405

== ENCOUNTER 2023-12-29 18:01 | Emergency (ER) | payer MEDICAID, SELFPAY ==
[2023-12-29 18:02] VITALS: BP 139/99; PULSE 88; RESP 16; TEMP 36.7; O2SAT 98; BMI 32.5
--- NOTE | 2023-12-29 18:06 | ED_ITS ---
Discharge Plan Disposition Patient Disposition: Home, Self-Care Condition: Good Prescriptions Prescriptions: No Action buprenorphine-naloxone 8-2 mg tablet, sublingual 1 tab sublingual Patient Comments: DISSOLVE 2 TABLETS UNDER THE TONGUE ONCE DAILY duloxetine 60 mg capsule,delayed release(DR/EC) 60 mg PO BID Patient Comments: TAKE ONE CAPSULE BY MOUTH TWICE DAILY pregabalin 200 mg capsule 200 mg PO TID Patient Comments: TAKE ONE CAPSULE BY MOUTH THREE TIMES DAILY MAY CAUSE DROWSINESS Referrals Follow up/Referrals: Gordon Elam MD [Primary Care Provider] - See instructions Activity Restrictions/Add. Instructions Additional Instructions/Restrictions: Follow-up with your PCP as needed. Return to the ER as needed. You may take Benadryl every 4 hours as needed for swelling or itching. Clinical Impressions Clinical Impression: External constriction of right ring finger, initial encounter Discharge ED Provider: Jamie Sky General Adult HPI <MATILDE Gan - Last Filed: 12/29/23 18:25> General Chief complaint: Skin/Abscess/Foreign Body Stated complaint: bee sting swelling on right hand Time Seen by Provider: 12/29/23 18:06 History of Present Illness HPI narrative: Patient presents for evaluation of a stuck ring. Patient reports that she got stung by a bee yesterday and has been taking Benadryl and has no systemic symptoms but she does have swelling and now has a ring on her ring finger of her right, dominant, hand that she is unable to get off. Patient states that the finger is very swollen and started become painful. She denies any numbness tingling loss of motor or sensory. Related Data Home Medications Medication Instructions Recorded Confirmed duloxetine 60 mg capsule,delayed 60 mg PO BID Depression 01/02/23 09/09/23 release pregabalin 200 mg capsule 200 mg PO TID Pain 01/02/23 09/09/23 buprenorphine 8 mg-naloxone 2 mg 1 tab sublingual 09/02/23 09/09/23 sublingual tablet Allergies Allergy/AdvReac Type Severity Reaction Status Date / Time No Known Allergies Allergy Verified 09/09/23 11:24 [facility] <MATILDE Gan - Last Filed: 12/29/23 18:25> [facility] Disclaimer: The information contained in this section may have been updated after the patient was seen, as this information can be updated by other users. Medical History Diabetes mellitus, type 2 Surgical History S/P ankle joint replacement History of bunionectomy H/O fasciotomy History of History of incision and drainage Family History Other Family history of acute heart failure Family history of hypertension Social History Smoking Status: Never smoker alcohol intake: never substance use type: heroin current occupational status: employed Travel in the last 8 weeks: None household members: children housing: house caffeine: Yes <MATILDE Gan - Last Filed: 12/29/23 18:25> ROS Obtained: Yes Systems reviewed as appropriate & no additional complaints except as documented Physical Exam <MATILDE Gan - Last Filed: 12/29/23 18:25> General General appearance: alert and in no apparent distress Respiratory Respiratory exam: Present normal lung sounds bilaterally; Absent respiratory distress or wheezes Cardiovascular Cardiovascular exam: Present regular rate and normal rhythm Expanded Upper Extremity Exam Right: Hand L/R front image: 2 1. other (Ring) Neurological Exam Neurological exam: Present alert and oriented X3 Lymphatic Lymphatic Findings: no adenopathy Medical Decision Making <MATILDE Gan - Last Filed: 12/29/23 18:25> [place] Inquiry Pt receiving controlled substance: No Vital Signs: 12/29/23 18:02 12/29/23 18:07 12/29/23 18:29 Temperature 98.0 F 98.2 F Temperature Source Oral Oral Pulse Rate 112 H 93 H Pulse Rate [Right] 88 Respiratory Rate 16 16 Blood Pressure 162/91 H 162/91 H Blood Pressure [Right Arm] 139/99 H Blood Pressure Mean [Right Arm] 112 Blood Pressure Source Automatic Cuff Blood Pressure Source [Right Arm] Automatic Cuff 02 Sat by Pulse Oximetry 98 97 Oxygen Delivery Method Room Air Room Air Medical Decision Narrative: In summary patient is a 38-year-old female who presents to the emergency department for evaluation of a swollen finger and a stuck ring. Patient is hemodynamically stable upon arrival, afebrile. Physical exam is remarkable for edema of the fourth digit of the right hand distal to a ring. The ring is movable and has not caused skin breakdown however she definitely has venous engorgement of the digit distal to the ring. She is neurovascular intact and has full range of motion although it is painful. As far as systemic symptoms of the bee sting she has none. After establishing the patient was neurovascularly intact I was able to snip the ring on the palmar surface immediately freeing her finger and with return of normal color. Given this patient is appropriate for discharge with follow-up with her PCP as needed. <Jamie Sky MD - Last Filed: 12/29/23 21:38> Vital Signs: 12/29/23 18:02 12/29/23 18:07 12/29/23 18:29 Temperature 98.0 F 98.2 F Temperature Source Oral Oral Pulse Rate 112 H 93 H Pulse Rate [Right] 88 Respiratory Rate 16 16 Blood Pressure 162/91 H 162/91 H Blood Pressure [Right Arm] 139/99 H Blood Pressure Mean [Right Arm] 112 Blood Pressure Source Automatic Cuff Blood Pressure Source [Right Arm] Automatic Cuff 02 Sat by Pulse Oximetry 98 97 Oxygen Delivery Method Room Air Room Air Medical Decision Narrative: In summary patient is a 38-year-old female who presents to the emergency department for evaluation of a swollen finger and a stuck ring. Patient is hemodynamically stable upon arrival, afebrile. Physical exam is remarkable for edema of the fourth digit of the right hand distal to a ring. The ring is movable and has not caused skin breakdown however she definitely has venous engorgement of the digit distal to the ring. She is neurovascular intact and has full range of motion although it is painful. As far as systemic symptoms of the bee sting she has none. After establishing the patient was neurovascularly intact I was able to snip the ring on the palmar surface immediately freeing her finger and with return of normal color. Given this patient is appropriate for discharge with follow-up with her PCP as needed. I was consulted by the ZACH, and we discussed the complexity of the problems being addressed. I approved the treatment and management plan for this patient?s care in the Emergency Department, thus performing a substantive portion of the medical decision making. Jamie Sky MD Critical Care <MATILDE Gan - Last Filed: 12/29/23 18:25> Critical Care Time Critical Care Time: No
[2023-12-29 18:07] VITALS: BP 162/91; PULSE 112; O2SAT 97
[2023-12-29 18:29] VITALS: BP 162/91; PULSE 93; RESP 16; TEMP 36.8; O2SAT 98
== END 2023-12-29 18:30 | disposition home or self-care (01) ==
PROVIDERS: Emergency Provider Emergency Medicine; PCP Family Medicine
DX: S60.444A External constriction of right ring finger, initial encounter (principal); W49.04XA Ring or other jewelry causing external constriction, initial encounter
CPT/HCPCS: 99282

== ENCOUNTER 2024-01-13 08:57 | Day surgery (SDC) | payer MEDICAID, SELFPAY ==
[2024-01-13] VITALS (10 sets, daily range): BP systolic 137–162; BP diastolic 82–99; PULSE 89–104; RESP 16–18; TEMP 36.4–37.5; O2SAT 92–97; BMI 32.5
[2024-01-13] MEDS: LACTATED RINGERS 1000ML 1,000 ML 25 ML IV (09:31)
[2024-01-13 09:35] LABS: POC Glucose,Bedside 124 (70-110)
[2024-01-13 09:35] LABS: Basophils # 0.2 K/mm3 (0-0.2); Eosinophils # 0.3 K/mm3 (0.0-0.4); Eosinophils % 1.6 % (0.1-12.0); Hematocrit 44.8 % (37.0-47.0); Hemoglobin 15.4 g/dL (12.2-16.2); Lymphocytes # 3.7 K/mm3 (0.7-4.5); Lymphocytes % 21.7 % (10-50); Mean Corpuscular HGB Conc 34.4 g/dL (31.8-35.4); Mean Corpuscular Hemoglobin 32.2 pg (27.0-31.2); Mean Corpuscular Volume 93.7 fl (81-99); Mean Platelet Volume 8.3 fl (7.4-10.4); Monocytes # 0.8 K/mm3 (0.1-1.0); Monocytes % 4.6 % (1.7-9.3); Platelet Count 392 K/mm3 (142-424); Red Blood Count 4.78 M/mm3 (4.20-5.40); Red Cell Distribution Width 15.7 % (11.5-17.5); White Blood Count 16.9 K/mm3 (4.8-10.8)
[2024-01-13 09:36] LABS: MANUAL DIFFERENTIAL MANUAL DIFFERENTIAL (MANUAL DIFF)
[2024-01-13 09:41] LABS: Urine Pregnancy, HCG Qual. Negative (Negative)
[2024-01-13 09:43] LABS: Blood Urea Nitrogen 7 mg/dl (7-17); Calcium 9.4 mg/dl (8.4-10.2); Carbon Dioxide 25 mmol/L (22.0-30.0); Chloride 107 mmol/L (98-107); Creatinine Clearance Estimated 238 mL/min (50-200); Estimated Glomerular Filt Rate 137 ml/min (>60); GFR (African American) 166 ML/MIN (>60); Glucose 111 mg/dl (74-100); Sodium 137 mmol/L (136-145)
[2024-01-13] MEDS: CEFAZOLIN SODIUM 2 GM in 0.9 % SODIUM CHLORIDE 100 ML IV (09:53)
[2024-01-13 10:12] LABS: Lymphocytes % 24 % (10-50); Monocytes % 4 % (2-9); Neutrophils % 72 % (42-76); Platelet Estimate Normal; RBC Morphology Normal; Total Cells Counted 100
[2024-01-13] MEDS: LIDOCAINE 1% 20ML MDV 20 ML (10:16)
--- NOTE | 2024-01-13 10:25 | P.OP_ITS ---
Date of procedure: 01/13/24 Pre-op Diagnosis:: Bilateral axillary hidradenitis with abscesses Post-op Diagnosis:: same Procedure performed:: Incision and drainage - bilateral axillary abscesses Surgeon:: Ten Montejo MD MILITARY SCIENCE TEACHER:: Rik Salazar Anesthesia: LMA Estimated blood loss (mL): 10 Operative findings:: Right axillary abscesses (x2) left open for packing Left axillary abscess left open for packing Operative note:: After informed consent was obtained the patient was taken to the operating room and placed in the supine position. Her bilateral axillary regions were prepped and draped in a sterile fashion. After infiltration with local anesthetic an elliptical incision was made around the inflamed hidradenitis tissue/abscess in the left axilla. The deep subcutaneous tissue was dissected with electrocauter y. A deep pocket of purulence was opened. The overlying tissue was debrided. Electrocautery was utilized to achieve hemostasis. The wound was packed with Kerlix which was then infiltrated with 1% lidocaine. Both right axillary abscesses were managed in the same fashion. Dressings were applied and the patient was transferred to recovery in stable condition. Condition: stable Disposition: PACU Specimens:: none Complications:: no immediate
--- NOTE | 2024-01-13 10:32 | P.PNANES_ITS ---
[facility] Disclaimer: The information contained in this section may have been updated after the patient was seen, as this information can be updated by other users. Medical History Diabetes mellitus, type 2 Surgical History S/P ankle joint replacement History of bunionectomy H/O fasciotomy History of History of incision and drainage Family History Other Family history of acute heart failure Family history of hypertension Social History (Updated 01/13/24 @ 09:17 by Yuly Xiong RN) Smoking Status: Never smoker alcohol intake: never substance use type: heroin current occupational status: employed Travel in the last 8 weeks: None household members: children housing: house caffeine: Yes [facility] Anesthesia Checklist Patient Identification Patient Identification: Arm Band Structural Data Admitted From: Home Planned Operative Procedure/s: I&D Bilateral Axillary Abscess Consent for Planned Operative Procedure(s) Verified: Yes Verified Documents: Surgical Consent and History and Physical NPO Status Verified Time NPO: 00:00 Additional verifications Anesthesia Reactions: No Hx Blood Transfusions: No Blood Transfusion Reaction: No Airway Assessment Mallampati Score:: Class II C-Spine Mobility Assessed: Yes TMJ Mobility Assessed: Yes Dentition: Good Dentition Neurological Assessment Level of Consciousness: Awake, Alert and Appropriate Anesthesia Plan Anesthesia Risk discussed: Yes Anesthesia Plan: Verified ASA Class: II Anesthesia Type: General
--- NOTE | 2024-01-13 10:33 | P.PNANES_ITS ---
[facility] Anesthesia Record Part I Anesthesia Record I Intake, IV Amount: 500 Hydration: Adequate Estimated blood loss (mL): 5 Urine output (mL): 0 Blood Products used (#): none Blood Pressure: 142/86 SaO2: 93 Pulse Rate: 89 Airway Patency: Patent Respiratory Rate: 16 Temperature: 99.5 F Patient is:: Drowsy and Stable Stable to PACU at:: 10:30
[2024-01-13] MEDS: MEPERIDINE 25MG/ML 1ML SYRINGE 25 MG IV (10:48)
--- NOTE | 2024-01-13 12:35 | P.PNANES_ITS ---
[facility] Anesthesia Record Part II Anesthesia Record Part II Discharge Time: 11:00 Destination: Surgical Day Care (OP Surgery) PACU nurse assessment reviewed?: Yes Patient Condition:: Good Anesthesia Complications:: None Swallowing reflex intact?: Yes Airway Patency: Patent Cyanosis?: No Blood Pressure: 142/85 SaO2: 95 Respiratory Rate: 17 Pulse Rate: 104 Temperature: 97.6 F Mental Status: Alert & Oriented Pain level:: 8 Nausea and/or vomitting:: None Intake, IV Amount: 0 Hydration: Adequate
== END 2024-01-13 11:31 | disposition home or self-care (01) ==
PROVIDERS: PCP Family Medicine; Visit Provider Surgery
PROC: (CPT 10061; principal; 2024-01-13 09:00)
DX: L73.2 Hidradenitis suppurativa (principal); L02.412 Cutaneous abscess of left axilla; L02.411 Cutaneous abscess of right axilla
CPT/HCPCS: 10061; 80048; 80050; 81025; 82962; 85007; 85025; 85027; 96374; J0690; J1100; J1885; J2175; J2250; J2405; J3010; J7120

== ENCOUNTER 2024-03-16 20:39 | Emergency (ER) | payer MEDICAID, SELFPAY ==
[2024-03-16 20:51] VITALS: BP 146/87; PULSE 124; O2SAT 96
[2024-03-16 20:53] VITALS: BP 146/87; PULSE 128; RESP 18; TEMP 37.2; O2SAT 96; BMI 32.5
--- NOTE | 2024-03-16 21:30 | PC.NURSE ---
In to give pt her topical medication, pt states she would rather not have the er do I&D that AGUSTÍN at Dr Gonzalez office told pt to come to er and we would call Dr Grove in to ER. Explained to pt POC and informed provider pt would rather not have I&D in er, except by Dr GROVE
--- NOTE | 2024-03-16 22:06 | ED_ITS ---
Discharge Plan Disposition Chief Complaint: Skin/Abscess/Foreign Body Prescriptions Prescriptions: No Action duloxetine 60 mg capsule,delayed release(DR/EC) 60 mg PO BID Patient Comments: TAKE ONE CAPSULE BY MOUTH TWICE DAILY pregabalin 200 mg capsule 200 mg PO TID Patient Comments: TAKE ONE CAPSULE BY MOUTH THREE TIMES DAILY MAY CAUSE DROWSINESS hydrocodone-acetaminophen 5-325 mg tablet 1 tab PO Q6H PRN (Reason: post-op pain; dressing changes) Qty: 9 0RF Referrals Follow up/Referrals: Gordon Elam MD [Primary Care Provider] - See instructions Instructions Patient Instructions: DI for Skin Abscess Print Language Print Language: Occitan Discharge ED Provider: Francisca Cooley General Adult HPI General Chief complaint: Skin/Abscess/Foreign Body Stated complaint: Abscess under RT arm Time Seen by Provider: 03/16/24 20:44 Mode of Arrival: Ambulatory Source of Information: Patient Limitations: No Limitations Description of Symptoms (Recalled from ER Triage Doc. by RN): Pt reports to ED with cc of abcess in her right armpit. Pt states having 7 sx to remove previous abcesses all removed by Dr Grove. Pt states Dr. Grove's office told her to come into the ED to see if Dr Grove can come in to remove abcess. Pt states abcess has shown up 4-5 days ago. History of Present Illness HPI narrative: Sharonda Cortes is a 38 y/o female presenting with abscess. Patient states that approximately 4 days ago she started developing tenderness in her right axilla. Patient states she has a history of abscesses that required surgical removal. Patient states she is followed by Dr. Grove for these and that the office told her to come in to the emergency department for him to see her. Patient denies fevers, chills but states she is felt poorly over the last day. Patient states she is not a diabetic but does admit to smoking 1 pack of cigarettes per day. Related Data Home Medications ?Medication ?Instructions ?Recorded ?Confirmed duloxetine 60 mg capsule,delayed 60 mg PO BID Depression 01/02/23 01/13/24 release pregabalin 200 mg capsule 200 mg PO TID Pain 01/02/23 01/13/24 Previous Rx's ?Medication ?Instructions ?Recorded hydrocodone 5 mg-acetaminophen 325 1 tab PO Q6H PRN post-op pain; 01/13/24 mg tablet dressing changes #9 tabs Allergies Allergy/AdvReac Type Severity Reaction Status Date / Time No Known Allergies Allergy Verified 01/13/24 08:36 [facility] Disclaimer: The information contained in this section may have been updated after the patient was seen, as this information can be updated by other users. Medical History Diabetes mellitus, type 2 Surgical History S/P ankle joint replacement History of bunionectomy H/O fasciotomy History of History of incision and drainage Family History Other Family history of acute heart failure Family history of hypertension Social History (Updated 01/13/24 @ 09:17 by Yuly Xiong RN) Smoking Status: Current every day smoker tobacco type: cigarettes packs per day: 1 alcohol intake: never substance use type: heroin current occupational status: employed Travel in the last 8 weeks: None household members: children housing: house caffeine: Yes ROS Obtained: Yes All systems reviewed & no additional complaints except as documented Physical Exam General General appearance: alert and in no apparent distress Respiratory Respiratory exam: Absent respiratory distress Cardiovascular Cardiovascular exam: Present regular rate and normal rhythm Neurological Exam Neurological exam: Present alert Skin Skin exam: Present warm and dry Expanded Skin Exam Type of lesion: Present abscess (right axilla with erythema, central fluctuance) Medical Decision Making Medical Records Screening: Per USPSTF and CDC recommendations, given the prevalence of disease in our region, it is our hospital?s policy to screen for HIV and viral Hepatitis for all patients aged 18 and over and those with ongoing risk factors. Yunier Inquiry Pt receiving controlled substance: No Vital Signs: 03/16/24 20:51 03/16/24 20:53 Temperature 99.0 F Temperature Source Oral Pulse Rate 124 H Pulse Rate [Right Radial] 128 H Respiratory Rate 18 Blood Pressure 146/87 H Blood Pressure [Left Arm] 146/87 H Blood Pressure Mean [Left Arm] 106 Blood Pressure Source [Left Arm] Automatic Cuff 02 Sat by Pulse Oximetry 96 96 Oxygen Delivery Method Room Air Orders (Tests/Meds): ED MEDICATIONS Discontinued Medications Generic Name Dose Route Start Last Admin Trade Name Freq PRN Reason Stop Dose Admin Cocaine HCl 1 ml 03/16/24 21:12 03/16/24 22:30 Cocaine 4% Topical Soln 4ml Bottle TP 03/16/24 21:13 1 ml ONCE ONE Administration Epinephrine HCl 1 mg 03/16/24 21:12 03/16/24 22:31 Epinephrine 1 Mg/Ml Ampul TP 03/16/24 21:13 1 mg ONCE ONE Administration Lidocaine HCl 1 ml 03/16/24 21:12 03/16/24 22:31 Lidocaine 2% Urojet 10ml TP 03/16/24 21:13 1 ml ONCE ONE Administration Lidocaine HCl 10 ml 03/16/24 23:36 03/17/24 00:05 Lidocaine 1% 10ml Mdv IJ 03/16/24 23:37 10 ml ONCE ONE Administration Oxycodone HCl 10 mg 03/16/24 22:30 03/16/24 22:45 Oxycodone 5mg Immediate Release Tablet PO 03/16/24 22:31 10 mg ONCE ONE Administration Medical Decision Narrative: Patient is a 38 female presenting with an abscess in her right axilla. Patient has a history of recurrent abscesses which are frequently managed in the operating room with Dr. Grove. Differential diagnosis includes was not limited to, abscess, cellulitis, NSTI, among others. Patient's exam and history were unremarkable in terms of systemic symptoms and no labs were considered necessary at this time. Bedside ultrasound performed which demonstrated a 1 x 2 cm abscess in the right axilla with some complex fluid. After discussing plan for incision and drainage, patient was insistent that Dr. Grove manage her abscess. Dr. Grove was paged and we had a discussion with regards to the size of the abscess as well as ER management. I had a repeat discussion with the patient with regards to ED management versus overnight Bhagat for evaluation by Dr. Grove tomorrow. Patient was ultimately in agreement with me performing the incision and drainage. LET was placed on the area of abscess for additional pain con trol. I&D performed with local lidocaine injection, stab incision with 11 blade and significant purulent drainage expressed. Wound was deloculated with needle diesel truck driver. Patient tolerated the procedure without significant difficulty. Incision left open to drain with a loose covering after it was flushed with sterile saline. Patient advised on wound care at home and follow-up as needed. Patient agreement with this plan. Patient discharged in stable condition. Francisca Cooley MD PGY-3, Emergency Medicine Procedures Abscess I/D Site: upper extremity (Axilla) Side (if applicable): right Sedation/analgesia: none Local Anesthetic: lidocaine 1% Amount of anesthesia used (mL): 5 Technique: incised with #11 blade Irrigation: Yes Packing used?: none Critical Care Critical Care Time Critical Care Time: No
--- NOTE | 2024-03-16 22:12 | PC.NURSE ---
Paged dr. horne to extension [phone]
--- NOTE | 2024-03-16 22:13 | PC.NURSE ---
Dr Cooley on phone with Dr Grove
[2024-03-16] MEDS: COCAINE 4% TOPICAL SOLN 4ML BOTTLE 1 ML TP (22:30)
[2024-03-16] MEDS: EPINEPHrine 1 MG/ML AMPUL TP (22:31)
[2024-03-16] MEDS: LIDOCAINE 2% UROJET 10ML TP (22:31)
[2024-03-16] MEDS: OXYCODONE 5MG IMMEDIATE RELEASE TABLET 10 MG PO (22:45)
[2024-03-17] MEDS: LIDOCAINE 1% 10ML MDV 10 ML IJ (00:05)
[2024-03-17 00:20] VITALS: BP 140/78; PULSE 109; RESP 16; TEMP 37.1; O2SAT 96
== END 2024-03-17 00:21 | disposition home or self-care (01) ==
PROVIDERS: Emergency Provider Student in an Organized Health Care Education/Training Program; PCP Family Medicine
DX: L02.411 Cutaneous abscess of right axilla (principal); E11.9 Type 2 diabetes mellitus without complications; F17.210 Nicotine dependence, cigarettes, uncomplicated
CPT/HCPCS: 10061; 99283

== ENCOUNTER 2025-04-06 10:16 | Outpatient (CLI) | payer MEDICAID, SELFPAY ==
[2025-04-06 22:26] LABS: Coronavirus 19, PCR Not Detected (NotDetected); Influenza A, PCR Not Detected (NotDetected); Influenza B, PCR Not Detected (NotDetected)
--- OUTSIDE RECORDS SUMMARY | 2025-04-08 10:23 | XMS_ITS | Clinical Summary ---
Author Organization Healthcare Address [address] [place] [address] Care Team Providers Care Compression Molding Machine Setter Name Role Phone Derrick Beltran MD Primary Care Provider + [phone] Immunizations Immunization Administration Dates Next Due Influenza, injectable, quadrivalent, preservativ e free 03/30/2014 Family History Medical History Relation Name Comments Hypertension Mother Cardiac disorder Other 1 Hypertension Other 2 Relation Name Status Comments Mother Other 1 Other 2 Social History Tobacco Use Types Packs/Day Years Used Date Smoking Tobacco: Every Day Alcohol Use Standard Drinks/Week Comments No 0 (1 standard drink = 0.6 oz pur e alcohol) Comments Unknown Sex and Gender Information Value Date Recorded Sex Assigned at Not on file Legal Sex Female 6:13 PM EDT Gender Identity Not on file Sexual Orientation Not on file Last Filed Vital Signs Vital Sign Reading Time Taken Comments Blood Pressure 148/96 07/11/2020 10:34 AM EST Pulse 90 07/11/2020 10:34 AM EST Temperature - - Respiratory Rate - - Oxygen Saturation - - Inhaled Oxygen Concentration - - Weight 111 kg (245 lb 6 oz) 07/11/2020 10:34 AM EST Height 175.3 cm (5' 9 ) 07/11/2020 10:34 AM EST Body Mass Index 36.24 07/11/2020 10:34 AM EST Plan of Treatment Not on file Care Teams Compression Molding Machine Setter Relationship Specialty Start Date End Date Derrick Beltran MD [address] [place] [id number] PCP - General 11/07/20
--- OUTSIDE RECORDS SUMMARY | 2025-04-08 10:23 | XMS_ITS | Clinical Summary ---
Author Organization [facility] Address [address] [place] [address] Care Team Providers Care Medical Record Technician Name Role Phone Sofya Recinos APRN Primary Care Provide r Allergies No known active allergies Medications glucose blood test stripIndications: Uncontrolled type 2 diabetes mellitus with hyperglycemia Test BG TID 100 each 1 Active glucose monitor monitoring kitIndications:Un controlled type 2 diabetes mellitus with hyperglycemia 1 each 3 (Three) Times a Day Before Meals. 100 each 1 Active Lancets miscIndications:U ncontrolled type 2 diabetes mellitus with hyperglycemia Test BG TID 100 each 1 Active metFORMIN (Glucophage) 500 MG tabletIndications :Uncontrolled type 2 diabetes mellitus with hyperglycemia Take 1 tablet by mouth 2 (Two) Times a Day With Meals. 60 tablet 6 1 Active QUEtiapine (SEROquel) 100 MG tabletIndications :Primary insomnia Take 1.5 tablets by mouth Every Night. 135 tablet 3 1 Active Insulin Pen Needle (Pen [place] 1/2 ) 29G X 12MM misc 1 pen 3 (Three) Times a Day As Needed (insulin injections). 100 each 11 1 Active amitriptyline (ELAVIL) 150 MG tabletIndications :Neuropathy Take 1 tablet by mouth Every Night. 30 tablet 2 1 Active Insulin Aspart, w/Niacinamide, (Fiasp PenFill) 100 UNIT/ML solution cartridgeIndicati ons:Uncontrolled type 2 diabetes mellitus with hyperglycemia Inject 10 Units under the skin into the appropriate area as directed Daily With Breakfast, Lunch & Dinner. 9 mL 5 1 Active Insulin Glargine (BASAGLAR KWIKPEN) 100 UNIT/ML injection penIndications:Un controlled type 2 diabetes mellitus with hyperglycemia Inject 30 Units under the skin into the appropriate area as directed Every Night. 9 mL 6 1 Active ibuprofen (ADVIL,MOTRIN) 800 MG tabletIndications :Pain, dental Take 1 tablet by mouth Every 6 (Six) Hours As Needed for Mild Pain or Moderate Pain . 90 tablet 1 Active DULoxetine (CYMBALTA) 60 MG capsuleIndication s:Restless leg Take 1 capsule by mouth 2 (Two) Times a Day. 240 capsule 1 Active pregabalin (Lyrica) 300 MG capsuleIndication s:Neuropathy Take 1 capsule by mouth 2 (Two) Times a Day. 60 capsule 1 1 Active Active Problems Problem Noted Date Diagnosed Date Uncontrolled type 2 diabetes mellitus with hyper glycemia 07/04/2020 Assessment & Plan (12/02/2020 9:31 AM EDT): Diabetes is worsening. Reminded to bring in blood sugar diary at next visit. Dietary recommendations for ADA diet. Regular aerobic exercise. Discussed ways to avoid symptomatic hypoglycemia. Discussed sick day management. Discussed foot care. Reminded to get yearly retinal exam. Medication changes per orders. Diabetes will be reassessed in 3 months. Anxiety, generalized 02/12/2019 Muscle ache 02/12/2019 Restless leg 12/18/2018 Assessment & Plan (12/02/2020 9:32 AM EDT): Refilled seroquel Overweight 12/18/2018 Essential hypertension 12/18/2018 Persistent cough 04/19/2018 Neuropathy Overview (11/10/2020): 11/10/20- has been dealing with this for about 7-8 years. Has been taking Lyrica and it works very well. Also takes Cymbalta 60mg. Assessment & Plan (12/02/2020 9:45 AM EDT): Refilled Lyrica Immunizations Immunization Administration Dates Next Due Influenza, Unspecified 08/08/2019 Tdap 05/24/2018 Family History Medical History Relation Name Comments Cancer Maternal Grandmother Hypertension Maternal Grandmother Hypertension Mother Relation Name Status Comments Maternal Grandmother Mother Social History Tobacco Use Types Packs/Day Years Used Date Smoking Tobacco: Every Day Cigarettes 1 18 Smokeless Tobacco: Never Alcohol Use Standard Drinks/Week Comments No 0 (1 standard drink = 0.6 oz pur e alcohol) PHQ-2 Answer Date Recorded Retired Total Score 0 11/10/2020 Abuse Screen Answer Date Recorded Unsafe at Home or Work/School Not on file Feels Threatened by Someone? Not on file 02/2023 Does Anyone Keep You from Co ntacting Others or Doint Things Outside the Home? Not on file 04/04/2023 Physical Sign of Abuse Present Not on file 1 Housing Stability Answer Date Recorded Current Living Arrangements Not on file 02/2023 Potentially Unsafe Housing Conditions Not on shelley e 04/04/2023 Family and Community Support Answer López e Recorded Help with Day-to-Day Activities Not on file 04/04/2023 Lonely or Isolated Not on file 04/04/2023 Employment Answer Date Recorded Do you want help finding or keeping work or a johan b? Not on file 04/04/2023 Disabilities Answer Date Recorded Concentrating, Remembering, or Making Decisions Difficulty Not on file 04/04/2023 Doing Errands Independently Difficulty Not on fi le 04/04/2023 Education Answer Date Recorded Help with school or training? Not on file Preferred Language Not on file 04/04/2023 Comments No Sex and Gender Information Value Date Recorded Sex Assigned at Not on file Legal Sex Female 12:54 PM EDT Gender Identity Not on file Sexual Orientation Not on file Last Filed Vital Signs Vital Sign Reading Time Taken Comments Blood Pressure 122/82 11/10/2020 11:13 AM EDT Pulse 110 11/10/2020 11:13 AM EDT Temperature 36.5 C (97.7 F) 07/04/2020 4:15 PM EST Respiratory Rate 18 02/12/2019 3:52 PM EDT Oxygen Saturation 98% 11/10/2020 11:13 AM EDT Inhaled Oxygen Concentration - - Weight 104 kg (230 lb) 11/10/2020 11:13 AM EDT Height 175.3 cm (5' 9 ) 07/17/2019 1:59 PM EST Body Mass Index 33.97 07/17/2019 1:59 PM EST Plan of Treatment Health Maintenance Due Date Last Done Comments Annual Gynecologic Pelvic and Breast Exam 1985 ANNUAL PHYSICAL 03/01/2018 MAMMOGRAM 2024 INFLUENZA VACCINE 01/25/2025 08/08/2019, 04/03/2018, 03/30/2014 TDAP/TD VACCINES (2 - Td or Tdap) 05/24/2028 05/24/2018 HEPATITIS C SCREENING Completed 04/28/2018 HEMOGLOBIN A1C Discontinued 11/10/2020, 07/04/2020 Pneumococcal Vaccine 0-49 Aged Out No longer eligible based on patient's age to complete this topic Procedures Procedure Name Priority Date/Time Associated Diagnosis Comments POCT GLYCOSYLATED HEMOGLOBIN (HGB A1C) Routine 11/10/2020 12:50 PM EDT Uncontrolled type 2 diabetes mellitus with hyperglycemia HEPATITIS PANEL, ACUTE Add-On 04/28/2018 8:42 AM EDT Elevated liver enzymes from Last 3 Months or Most Recently Relevant to Health Maintenance Results * POC Glycosylated Hemoglobin (Hb A1C) (11/10/2020 12:50 PM EDT) Pathologist [facility] Hemoglobin A1C 11.8 % [facility] Blood 11/10/2020 12:5 0 PM EDT Sofya Recinos [employer] POINT OF CARE TEST OR DERABLES Final Result [facility]
[address] [place] [address], * Hepatitis panel, acute (04/28/2018 8:42 AM EDT) Pathologist [facility] Hepatitis B Surface Ag Non-Reacti ve Non-Reacti ve 04/28/2018 4:20 PM EDT [facility] Hep A IgM Non-Reacti ve Non-Reacti ve 04/28/2018 4:20 PM EDT [facility] Comment:Results may be false ly decreased if patient taking Biotin. Hep B C IgM Non-Reacti ve Non-Reacti ve 04/28/2018 4:20 PM EDT [facility] Comment:Results may be false ly decreased if patient taking Biotin. Hepatitis C Ab Non-Reacti ve Non-Reacti ve 04/28/2018 4:20 PM EDT [facility] Blood Venipuncture / Unknown 04/28/2018 8:42 AM EDT 04/28/2018 8:42 AM EDT us Tatiana Moses [employer] LAB BLOOD ORDERABLES Luz edward Result [facility]
[address] [place] [address], from Last 3 Months or Most Recently Relevant to Health Maintenance Insurance PPO Care Teams Medical Record Technician Relationship Specialty Start Date End Date Sofya Recinos APRN PCP - General Internal Medicine 11/10/20
--- OUTSIDE RECORDS SUMMARY | 2025-04-08 10:23 | XMS_ITS | Clinical Summary ---
Author Organization [employer] ([place], [place], [place], [place]) Address [address] [place] [address] Care Team Providers Care Residential Life Director Name Role Phone Vlad Elam MD Primary Care Provider [phone] Allergies No known active allergies Medications DULoxetine (CYMBALTA) 60 MG capsule Take 1 capsule (60 mg total) by mouth 2 (two) times daily. 09/30/2022 Active pregabalin (LYRICA) 200 MG capsule Take 1 capsule (200 mg total) by mouth 3 (three) times daily. 10/04/2022 Active LORazepam (ATIVAN) 1 MG tablet Take 2 tablets (2 mg total) by mouth every night as needed. 12/01/2022 Active Active Problems Problem Noted Date Diagnosed Date Diabetes mellitus Overview (10/26/2022): type 2 Neuropathy Overview (10/26/2022): bilateral feet History of heroin use Family History Medical History Relation Name Comments Heart failure Mother Lung cancer Mother Relation Name Status Comments Mother Social History Tobacco Use Types Packs/Day Years Used Date Smoking Tobacco: Former Cigarettes 1 15 1 06/2006 - 04/2022 Passive Smoke Exposure: Past Smokeless Tobacco: Never Tobacco Cessation:Counseling Given: Not Answered Alcohol Use Standard Drinks/Week Comments Never 0 (1 standard drink = 0.6 oz pur e alcohol) Food Insecurity Answer Date Recorded Food run out past 12 months Not on file 06/27 Food did not last past 12 months Not on file 07/14/2023 Employment Answer Date Recorded Help finding and keeping a job Not on file 0 07/14/2023 Family and Community Support Answer López e Recorded Help with Day to Day Activities Not on file 07/14/2023 Feeling Lonely or Isolated Not on file 07/14 Educational Attainment Answer Date Timothy rded Speak language other than Romanian at home Not on file 07/14/2023 Want help with school or training Not on file 07/14/2023 Substance Use Answer Date Recorded Used prescription meds for non-medical reasons N ot on file 07/14/2023 Used illegal drugs past 12 months Not on file 07/14/2023 Comments No Sex and Gender Information Value Date Recorded Sex Assigned at Not on file Legal Sex Female 7:00 PM CDT Gender Identity Not on file Sexual Orientation Not on file Last Filed Vital Signs Vital Sign Reading Time Taken Comments Blood Pressure 130/78 01/07/2023 3:05 PM EDT Pulse 90 01/07/2023 3:05 PM EDT Temperature 36.4 C (97.6 F) 01/07/2023 2:50 PM EDT Respiratory Rate 16 01/07/2023 3:05 PM EDT Oxygen Saturation 97% 01/07/2023 3:05 PM EDT Inhaled Oxygen Concentration - - Weight 90.7 kg (200 lb) 01/05/2023 11:33 AM EDT Height 175.3 cm (5' 9 ) 01/05/2023 11:33 AM EDT Body Mass Index 29.53 01/05/2023 11:33 AM EDT Plan of Treatment Health Maintenance Due Date Last Done Comments Diabetic Kidney Health Evaluation (KED) 1984 Diabetic Eye Exam 1994 Depression Screening (12+) 1996 HIV Screening 09/25/1999 Hepatitis C Screening 2002 Pneumococcal Vaccine: 0-49 Years (1 of 2 - PCV) 2003 Lipid Panel 2004 Pap Smear 2005 Hemoglobin A1C 04/20/2023 10/19/2022 Tobacco Cessation Counseling and Screening (12+) 01/0501/05/2023 Breast Cancer Screening 2024 COVID-19 VACCINE ( season) 2025 Influenza Vaccine (#1) 2025 03/30/2014 DTAP/TDAP/TD VACCINES (2 - Td or Tdap) 05/24/2028 Medical Devices Implanted Type Area Rubber Compounder Mixer Device Identifier Shelf Expiration Date Model / Serial / Lot Assb Stpl Sys Nitinol 8x8 [id number] - [id number] Implanted:Qty: 1 on 10/26/2022 by Matteo Andersen DPM at [facility] IMPLANTS Right: Foot PARAGON 28 05/13/2027 T04-157-60 08-S / / [id number] Plt Plantar Lulu [employer] Sys G86-672-Ttsj-X k - [id number] Implanted:Qty: 1 on 10/26/2022 by Matteo Andersen DPM at [facility] IMPLANTS Right: Foot PARAGON 28 07/16/2027 J61-167-EY IL-SK / / [id number] 1 Imp Hammer Tube Kt 2.75mm 0d U70-663-7181-Z k - [id number] Implanted:Qty: 1 on 10/26/2022 by Matteo Andersen DPM at [facility] IMPLANTS Right: Foot PARAGON 28 06/03/2027 C46-060-59 75-SK / / [id number] Plt Lapids Compr Std 4h R U23-042-X582 - [id number] Implanted:Qty: 1 on 10/26/2022 by Matteo Andersen DPM at [facility] IMPLANTS Right: Foot PARAGON 28 P75-965-U9 Scr Gorilla R3con 3.5x22 V95-274-5046 - [id number] Implanted:Qty: 1 on 10/26/2022 by Matteo Andersen DPM at [facility] IMPLANTS Right: Foot PARAGON 28 Y72-979-77 Scr Gorilla Nonlk R3con 3.5x14 V39-005-2860 - [id number] Implanted:Qty: 1 on 10/26/2022 by Matteo Andersen DPM at [facility] IMPLANTS Right: Foot PARAGON 28 G67-818-77 Scr Patricia R3con 3.5x16mm H15-500-7593 - [id number] Implanted:Qty: 1 on 10/26/2022 by Matteo Andersen DPM at [facility] IMPLANTS Right: Foot PARAGON 28 C74-865-31 16 / / 123 Scr Patricia R3con 3.5x18mm T79-243-7633 - [id number] Implanted:Qty: 1 on 10/26/2022 by Matteo Andersen DPM at [facility] IMPLANTS Right: Foot PARAGON 28 Z99-503-10 18 / / [address] Hdlss Mmo 4.0x36mm E37-548-531e - [id number] Implanted:Qty: 1 on 10/26/2022 by Matteo Andersen DPM at [facility] IMPLANTS Right: Foot PARAGON 28 Z26-266-51 6S / / 123 Scr Gorilla Nonlk R3con 3.5x34 U37-064-6883 - [id number] Implanted:Qty: 1 on 10/26/2022 by Matteo Andersen DPM at [facility] IMPLANTS Right: Foot PARAGON 28 W17-006-20 34 / / 123 Scr Patricia R3con 3.5x16mm U38-887-5725 - [id number] Implanted:Qty: 1 on 01/07/2023 by Matteo Andersen DPM at [facility] IMPLANTS Right: Ankle PARAGON 28 X38-293-00 16 / R76-999-45 16 / Scr Grlla R3con Lckng 3.5x10mm X91-739-1744 - [id number] Implanted:Qty: 2 on 01/07/2023 by Matteo Andersen DPM at [facility] IMPLANTS Right: Ankle PARAGON 28 R02-512-75 10 / B04-684-31 10 / Scr Patricia R3con 3.5x12mm J85-931-0577 - [id number] Implanted:Qty: 5 on 01/07/2023 by Matteo Andersen DPM at [facility] IMPLANTS Right: Ankle PARAGON 28 K14-699-64 12 / X73-740-41 12 / Scr Non Patricia R3con 2.7x16 U32-040-6553 - [id number] Implanted:Qty: 1 on 01/07/2023 by Matteo Andersen DPM at [facility] IMPLANTS Right: Ankle PARAGON 28 Y52-721-91 16 / [id number] 16 / Scr Patricia R3con 3.5x14mm X34-824-8190 - [id number] Implanted:Qty: 1 on 01/07/2023 by Matteo Andersen DPM at [facility] IMPLANTS Right: Ankle PARAGON 28 O17-026-99 14 / P48-515-66 14 / Plt Fib Cluster 11h R N55-179-B766 - [id number] Implanted:Qty: 1 on 01/07/2023 by Matteo Andersen DPM at [facility] IMPLANTS Right: Ankle PARAGON 28 N42-382-D7 11 / [id number] 11 / Procedures Procedure Name Priority Date/Time Associated Diagnosis Comments HEMOGLOBIN A1C Routine 10/19/2022 9:19 AM EDT Preop examination from Last 3 Months or Most Recently Relevant to Health Maintenance Results * Hemoglobin A1c (10/19/2022 9:19 AM EDT) Hemoglobin A1C 5.6 4.2 - 6.3 % 10/19/2022 1:16 PM EDT [facility] Comment: Hemoglobin A1C levels are related to mean glucose during the preceding 2-3 months. Less than 7% demonstrates glycemic control in diabetic patients. Hemoglobin AlC % Suggested Diagnosis > or = 6.5 Diabetic 5.7 - 6.4 Prediabetic <5.7 Non-diabetic eAVG Glucose 114.02 mg/dL 10/19/2022 1:16 PM EDT [facility] Blood Venipuncture / Unknown 10/19/2022 9:19 AM EDT 10/19/2022 11:05 AM EDT us Gus Hall MD LAB BLOOD ORDERABLES Luz edward Result [facility] [place] [phone] from Last 3 Months or Most Recently Relevant to Health Maintenance Insurance [facility] Care Teams Residential Life Director Relationship Specialty Start Date End Date Vlad Elam MD [address] [place], [place] [id number] PCP - General Family Medicine 10/19/22
--- OUTSIDE RECORDS SUMMARY | 2025-04-08 10:23 | XMS_ITS | Referral Summary ---
Author Organization [employer] ([place], [place], [place], [place]) Address [address] [place] [address] Care Team Providers Care Corn Lab Technician Name Role Phone Vlad Elam MD Primary Care Provider [phone] Allergies No known active allergies Medications DULoxetine [...] (10/26/2022): bilateral feet History of heroin use Social History Tobacco Use Types Packs/Day Years [...] Date Timothy rded Speak language other than South Korean at home Not on file 07/14/2023 Want [...] 01/05/2023 11:33 AM EDT Plan of Treatment Not on file Medical Devices Implanted Type Area Research Specialist Device Identifier Shelf Expiration Date Model / Serial / Lot Assb Stpl Sys Nitinol 8x8 [id number] - [id number] Implanted:Qty: 1 on 10/26/2022 by Matteo Andersen DPM at [facility] IMPLANTS Right: Foot PARAGON 28 05/13/2027 Q04-790-15 08-S / / [id number] Plt Plantar [employer]ulu [employer] Sys J39-727-Bgaz-Y k - [id number] Implanted:Qty: 1 on 10/26/2022 by Matteo Andersen DPM at [facility] IMPLANTS Right: Foot PARAGON 28 07/16/2027 K61-758-IV IL-SK / / [id number] Imp Hammer Tube Kt 2.75mm 0d U97-269-7626-S k - [id number] Implanted:Qty: 1 on 10/26/2022 by Matteo Andersen DPM at [facility] IMPLANTS Right: Foot PARAGON 28 06/03/2027 Y48-418-04 75-SK / / [id number] Plt Lapids Compr Std 4h R B61-857-N329 - [id number] Implanted:Qty: 1 on 10/26/2022 by Matteo Andersen DPM at [facility] IMPLANTS Right: Foot PARAGON 28 E81-539-F0 01 / / 123 Scr Gorilla R3con 3.5x22 O43-963-0877 - [id number] Implanted:Qty: 1 on 10/26/2022 by Matteo Andersen DPM at [facility] IMPLANTS Right: Foot PARAGON 28 E03-975-46 22 / / 123 Scr Gorilla Nonlk R3con 3.5x14 H42-787-0810 - [id number] Implanted:Qty: 1 on 10/26/2022 by Matteo Andersen DPM at [facility] IMPLANTS Right: Foot PARAGON 28 L20-670-12 14 / / 123 Scr Patricia R3con 3.5x16mm F46-038-9011 - [id number] Implanted:Qty: 1 on 10/26/2022 by Matteo Andersen DPM at [facility] IMPLANTS Right: Foot PARAGON 28 F81-652-20 16 / / 123 Scr Patricia R3con 3.5x18mm J37-664-5448 - [id number] Implanted:Qty: 1 on 10/26/2022 by Matteo Andersen DPM at [facility] IMPLANTS Right: Foot PARAGON 28 X40-779-05 18 / / [address] Hdlss Mmo 4.0x36mm S84-242-460l - [id number] Implanted:Qty: 1 on 10/26/2022 by Matteo Andersen DPM at [facility] IMPLANTS Right: Foot PARAGON 28 D73-214-54 6S / / 123 Scr Gorilla Nonlk R3con 3.5x34 P80-303-4141 - [id number] Implanted:Qty: 1 on 10/26/2022 by Matteo Andersen DPM at [facility] IMPLANTS Right: Foot PARAGON 28 L50-397-25 34 / / 123 Scr Patricia R3con 3.5x16mm K68-565-6790 - [id number] Implanted:Qty: 1 on 01/07/2023 by Matteo Andersen DPM at [facility] IMPLANTS Right: Ankle PARAGON 28 S56-944-50 16 / [id number] 16 / Scr Grlla R3con Lckng 3.5x10mm P74-477-5764 - [id number] Implanted:Qty: 2 on 01/07/2023 by Matteo Andersen DPM at [facility] IMPLANTS Right: Ankle PARAGON 28 M73-675-75 10 / K66-108-68 10 / Scr Patricia R3con 3.5x12mm Q97-818-8951 - [id number] Implanted:Qty: 5 on 01/07/2023 by Matteo Andersen DPM at [facility] IMPLANTS Right: Ankle PARAGON 28 S02-311-98 12 / U85-713-93 12 / Scr Non Patricia R3con 2.7x16 T01-577-8689 - [id number] Implanted:Qty: 1 on 01/07/2023 by Matteo Andersen DPM at [facility] IMPLANTS Right: Ankle PARAGON 28 Z51-949-61 16 / N31-916-02 16 / Scr Patricia R3con 3.5x14mm K52-712-5640 - [id number] Implanted:Qty: 1 on 01/07/2023 by Matteo Andersen DPM at [facility] IMPLANTS Right: Ankle PARAGON 28 M53-414-53 14 / K05-836-94 14 / Plt Fib Cluster 11h R O71-003-G086 - [id number] Implanted:Qty: 1 on 01/07/2023 by Matteo Andersen DPM at [facility] IMPLANTS Right: Ankle PARAGON 28 W77-987-Z1 11 / Z52-906-Q8 11 / Procedures Procedure Name Priority Date/Time Associated Diagnosis Comments HEMOGLOBIN A1C Routine 10/19/2022 9:19 AM EDT Preop examination from Last 3 Months or Most Recently Relevant to Health Maintenance Results * Hemoglobin A1c (10/19/2022 9:19 AM EDT) Hemoglobin A1C 5.6 4.2 - 6.3 % 10/19/2022 1:16 PM EDT [facility] Comment: Hemoglobin A1C levels are related to mean glucose during the preceding 2-3 months. Less than 7% demonstrates glycemic control in diabetic patients. Hemoglobin AlC % Suggested Diagnosis > or = 6.5 Diabetic 5.7 - 6.4 Prediabetic <5.7 Non-diabetic eAVG Glucose 114.02 mg/dL 10/19/2022 1:16 PM EDT [facility] Blood Venipuncture / Unknown 10/19/2022 9:19 AM EDT 10/19/2022 11:05 AM EDT us Gus Hall MD LAB BLOOD ORDERABLES Luz edward Result [facility] [address] [place] [address], [facility] [phone] from Last 3 Months or Most Recently Relevant to Health Maintenance Insurance [facility] [place] [address] [facility] Care Teams Corn Lab Technician Relationship Specialty Start Date End Date Vlad Elam MD [address] [place] [phone] PCP - General Family Medicine 10/19/22
== END 2025-04-06 23:59 ==
LOC: LAB.DROPOF 04-08 10:17
PROVIDERS: PCP Family Medicine; Visit Provider Nurse Practitioner Family
DX: J06.9 Acute upper respiratory infection, unspecified (principal)
CPT/HCPCS: 87631

== ENCOUNTER 2025-06-06 14:32 | Emergency (ER) | payer MEDICAID, SELFPAY ==
[2025-06-06 14:40] VITALS: PULSE 110; O2SAT 98
[2025-06-06 14:49] VITALS: BP 171/111; PULSE 111; RESP 19; TEMP 36.9; O2SAT 95; BMI 34.0
[2025-06-06 14:55] VITALS: BP 136/82; PULSE 99; O2SAT 95
[2025-06-06 15:00] VITALS: BP 132/85; PULSE 97; O2SAT 96
--- NOTE | 2025-06-06 15:15 | XR_ITS ---
FINAL REPORT CLINICAL HISTORY: pain, chronic neuropathy COMPARISON: None FINDINGS: RIGHT ANKLE 3 views of the right ankle were obtained. There is a sideplate and screws securing the distal fibula. There is no acute fracture or dislocation. Well corticated ossific density is noted inferior to the medial malleolus measuring 2 cm which may be due to heterotopic bone formation. There is a moderate plantar spur. The mortise is intact. Visualized joint spaces are normally aligned. Soft tissues are unremarkable. IMPRESSION: No acute bony abnormality. Postoperative/chronic changes. Reviewed, Interpreted and Dictated by Marcial Farooq MD Transcribed by Yuly Lennon Authenticated and [facility]
--- NOTE | 2025-06-06 15:15 | XR_ITS ---
FINAL REPORT CLINICAL HISTORY: pain, chronic neuropathy COMPARISON: 07/09/2022 FINDINGS: RIGHT FOOT 3 views of the right foot were obtained. There is a sideplate and screws securing the distal fibula. There is a well corticated ossific density inferior to the medial malleolus measuring 2 cm which may be due to heterotopic bone formation. There is no acute fracture or dislocation. There is a moderate plantar spur. Fusion hardware is noted bridging the 1st tarsometatarsal joint and proximal portions of the 1st and 2nd metatarsals. There is also a sideplate and screws at the proximal portion of the 1st proximal phalanx. Orthopedic hardware is noted in the 2nd PIP joint. The surgical changes are new compared to the prior study. Soft tissues are unremarkable. IMPRESSION: No acute bony abnormality. Postsurgical changes as above. Reviewed, Interpreted and Dictated by Marcial Farooq MD Transcribed by Yuly Lennon Authenticated and [facility]
--- NOTE | 2025-06-06 15:20 | XR_ITS ---
FINAL REPORT CLINICAL HISTORY: pain, chronic neuropathy COMPARISON: None FINDINGS: Two views of the right tib-fib were obtained. There is a sideplate and screws securing the distal fibula. There is no acute fracture or dislocation. The joint spaces are intact. The ankle mortise is intact. There is a large plantar spur. Large ossific density inferior to the medial malleolus measuring 2.0 cm is probably due to heterotopic bone formation from prior fracture. Calcification medial lower leg is probably represents calcified sequela from old trauma and may be calcified hematoma. There is no soft tissue abnormality. IMPRESSION: Degenerative/chronic changes without acute bony abnormality. Reviewed, Interpreted and Dictated by Marcial Farooq MD Transcribed by Yuly Lennon Authenticated and [facility]
--- NOTE | 2025-06-06 15:28 | HMH.EDGENADL ---
Discharge Plan Disposition Patient Disposition: Home, Self-Care Prescriptions Prescriptions: No Action buprenorphine-naloxone 8-2 mg tablet, sublingual sublingual ONCE Patient Comments: dissolve 2 tablets under the tongue once a day albuterol sulfate [Ventolin HFA] 90 mcg/actuation HFA aerosol inhaler 1 puff inhalation Q6H Qty: 6.7 0RF Rx Instructions: administer with spacer duloxetine 60 mg capsule,delayed release(DR/EC) 60 mg PO DAILY methylprednisolone 4 mg tablets,dose pack See Rx Instructions PO PER PKG DIR Qty: 21 0RF Rx Instructions: PO PER PKG DIR doxycycline hyclate 100 mg tablet 100 mg PO BID Qty: 20 0RF guaifenesin 1,200 mg tablet extended release 12hr 1,200 mg PO BID Qty: 30 0RF pregabalin 200 mg capsule 200 mg PO TID Patient Comments: TAKE ONE CAPSULE BY MOUTH THREE TIMES DAILY MAY CAUSE DROWSINESS Referrals Follow up/Referrals: Gordon Elam MD [Primary Care Provider, Medical] - See instructions Drew Yuong DO [Staff Physician, Orthopedics] - See instructions Activity Restrictions/Add. Instructions Additional Instructions/Restrictions: There is no definitive evidence of any hardware failure or fractures or dislocations or obvious infection. You did have nonspecific inflammatory marker elevations including your CRP and ESR. I cannot rule out osteomyelitis or any other deep space infection at the moment. However superficially and clinically there is no other evidence of an obvious infection therefore I want you to follow-up with our orthopedic surgeon to evaluate this further. Please try to investigate whether or not your hardware is MRI compatible from your recent surgeries as you may need an MRI or a bone scan to evaluate for possible osteomyelitis. Return with any spreading redness high fevers or other concerns Clinical Impressions Clinical Impression: Foot pain, Peripheral neuropathy Print Language Print Language: German Discharge ED Provider: Mary Maneul General Adult HPI General Chief complaint: PAIN Stated complaint: Right Foot Pain Time Seen by Provider: 06/06/25 15:02 Mode of Arrival: Ambulatory Source of Information: Patient Description of Symptoms (Recalled from ER Triage Doc. by RN): pt presents to ED with c/o right foot pain. pt reports pain and swelling began approx 1 week ago. pt reports no known injury. pt reports that a few years ago she had a broken foot and was walking on the foot without knowing. History of Present Illness HPI narrative: Patient is a 39-year-old female presenting today with pain in her right foot. In 2013 she had an overdose and compartment syndrome had a fasciotomy and subsequently had significant neurologic damage and contractures since that time. Has had multiple surgeries including a bunion correction as well as tendon shortening performed by Dr. Lund [place] who since has moved to [place]. 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 States that she typically cannot feel almost anything in her right foot and has chronic swelling but that over the last 2 days she has noticed some pain with walking primarily in her 2nd and 3rd digits as well as some swelling in that region she is concerned she may have injured it. Does not recall any definitive injuries. No more proximal swelling shortness of breath fevers chills redness or any other concerns Related Data Home Medications ?Medication ?Instructions ?Recorded ?Confirmed pregabalin 200 mg capsule 200 mg PO TID Pain 01/02/23 04/17/25 buprenorphine 8 mg-naloxone 2 mg tab sublingual ONCE 04/06/25 04/17/25 sublingual tablet duloxetine 60 mg capsule,delayed 60 mg PO DAILY 04/17/25 04/17/25 release Previous Rx's ?Medication ?Instructions ?Recorded albuterol sulfate 90 mcg/actuation 1 puff inhalation Q6H #6.7 grams 04/06/25 aerosol inhaler (Ventolin HFA) doxycycline hyclate 100 mg tablet 100 mg PO BID #20 tabs 04/17/25 guaifenesin 1,200 mg tablet, 1,200 mg PO BID #30 tabs 04/17/25 extended release 12 hr methylprednisolone 4 mg tablets in See Rx Instructions PO PER PKG DIR 04/17/25 a dose pack #21 tabs Allergies Allergy/AdvReac Type Severity Reaction Status Date / Time No Known Allergies Allergy Verified 04/17/25 17:50 [facility] Disclaimer: The information contained in this section may have been updated after the patient was seen, as this information can be updated by other users. Medical History Diabetes mellitus, type 2 Surgical History S/P ankle joint replacement History of bunionectomy H/O fasciotomy History of History of incision and drainage Family History Other Family history of acute heart failure Family history of hypertension Social History Smoking Status: Current every day smoker tobacco type: cigarettes packs per day: 1 alcohol intake: never substance use type: heroin current occupational status: employed Travel in the last 8 weeks?: None household members: children housing: house caffeine: Yes Have you lived/traveled outside [place] in past 30 days?: No Contact w/someone who lives/traveled outside US past 30 days?: No Exposure to someone with infectious disease in past 14 days?: No Do you have a fever (greater than 100.4 F or 38 C)?: No Have you tested positive for COVID-19?: No Exposed to someone with COVID-19 in past 14 days?: No Do you have a sore throat?: No Do you have a cough?: No Do you have any weakness?: No Do you have any diarrhea?: No Are you experiencing any unusual bleeding?: No Do you have any muscle aches/pain?: No Do you have any abdominal pain?: No Are you experiencing loss of taste or smell?: No Other Medical History Have you received the Flu Vaccine for this season: Yes Have you received the Pneumonia Vaccine: No ROS Obtained: Yes All systems reviewed & no additional complaints except as documented Physical Exam General General appearance: alert and in no apparent distress Respiratory Respiratory exam: Present normal lung sounds bilaterally and respiratory distress Cardiovascular Cardiovascular exam: Present regular rate and normal rhythm Abdominal Exam Abdominal exam: Present soft; Absent distention or tenderness Extremities Exam Extremities exam: Present other (Right lower extremity swelling in the tib-fib region ankle and foot well-healing old surgical scars no pathologic erythema fluctuance necrosis etc. patient has poor sensation throughout the entire lower extremity at baseline) Neurological Exam Neurological exam: Present alert and oriented X3 Medical Decision Making Medical Records Screening: Per USPSTF and CDC recommendations, given the prevalence of disease in our region, it is our hospital?s policy to screen for HIV and viral Hepatitis for all patients aged 18 and over and those with ongoing risk factors. [place] Inquiry Pt receiving controlled substance: No Vital Signs: 06/06/25 14:40 06/06/25 14:49 06/06/25 14:55 Temperature 98.4 F Temperature Source Oral Pulse Rate 110 H 99 H Pulse Rate [Left Radial] 111 H Respiratory Rate 19 Blood Pressure 136/82 Blood Pressure [Right Arm] 171/111 H Blood Pressure Mean [Right Arm] 131 02 Sat by Pulse Oximetry 98 95 95 Oxygen Delivery Method Room Air 06/06/25 15:00 Temperature Temperature Source Pulse Rate 97 H Pulse Rate [Left Radial] Respiratory Rate Blood Pressure 132/85 Blood Pressure [Right Arm] Blood Pressure Mean [Right Arm] 02 Sat by Pulse Oximetry 96 Oxygen Delivery Method Lab Data Lab results reviewed: Yes I reviewed the patient's lab results. Lab Results 06/06/25 15:49: WBC 12.3 H, RBC 4.97, Hgb 15.5, Hct 44.2, MCV 88.9, MCH 31.2, MCHC 35.1, RDW 13.4, Plt Count 291, MPV 10.7 H, Neut % (Auto) 62.7, Lymph % (Auto) 28.1, [place] % (Auto) 6.6, Eos % (Auto) 1.9, Baso % (Auto) 0.5, Neut # (Auto) 7.7, Lymph # (Auto) 3.5, [place] # (Auto) 0.8, Eos # (Auto) 0.2, Baso # (Auto) 0.1, ESR 28 H, Sodium 143, Potassium 3.6, Chloride 100, Carbon Dioxide 31 H, Anion Gap 15.6 H, BUN 4 L, Creatinine 0.50 L, Estimated Creat Clear 246, Estimated GFR 137, Est GFR ( Amer) 165, Glucose 157 H, Calcium 9.2, Total Bilirubin 0.8, AST 34, ALT 26, Alkaline Phosphatase 90, C-Reactive Protein 46.9 H, Total Protein 7.4, Albumin 4.2, Globulin 3.2, Albumin/Globulin Ratio 1.3 06/06/25 15:49 06/06/25 15:49 Orders (Tests/Meds): ORDERS Category Date Time Status Ankle XR -Right minimum 3 Views [XR ankle RT min 3V] Exams 06/06/25 15:15 Completed Stat Foot XR right minimum 3 views [XR foot RT min 3V] Stat Exams 06/06/25 15:15 Completed Tibia/fibula XR right 2 views [XR tibia fibula RT 2V] Exams 06/06/25 15:20 Completed Stat CBC w/Auto Diff [Complete Blood Count Auto Diff] Stat Lab 06/06/25 15:49 Completed CMP [Comprehensive Metabolic Panel] Stat Lab 06/06/25 15:49 Completed CRP [C-Reactive Protein] Stat Lab 06/06/25 15:49 Completed ESR [Erythrocyte Sedimentation Rate] Stat Lab 06/06/25 15:49 Completed HIV Combo Routine Lab 06/06/25 15:49 Received Hepatitis C Ab Qual. W/ RFX Routine Lab 06/06/25 15:49 Received Medical Decision Narrative: Patient with above history and physical she is very concerned that she may have an occult fracture as she has neuropathy and is not sure exactly what caused her symptoms today but there is no obvious evidence of infection but that remains on the differential. This is not consistent with a DVT. Will get plain films inflammatory markers and reassess. Also make sure she has an established follow-up appointment with our orthopedic surgeon. Reassessment 459 labs have returned patient does have an elevated CRP at 46.9 but this is chronically been elevated ESR is elevated at 28. White blood cell count is 12 all of this is nonspecific. Clinically there is no evidence of cellulitis or fluctuance or abscess. X-rays were performed which I personally interpreted shows no advanced bony destruction lucency around any of the hardware hardware failure fractures etc. Cannot rule out a deep space infection such as osteomyelitis. Patient has been made aware of this and to closely follow her clinical symptoms if she has any spreading redness high fevers or other concerns to return to the emergency department otherwise she will follow-up closely with her orthopedic surgeon. She may need an MRI or bone scan to look further into possible osteomyelitis. At the moment pretest probability remains low given her clinical presentation. Likely chronic pain associated with her chronic conditions at this point. She is very aware that this condition could worsen and will follow-up closely with Dr. Young and return with any worsening symptoms. Critical Care Critical Care Time Critical Care Time: No
[2025-06-06 15:57] LABS: Hematocrit 44.2 % (37.0-47.0); Hemoglobin 15.5 g/dL (12.2-16.2); Immature Granulocytes % 0.2 %; Mean Corpuscular HGB Conc 35.1 g/dL (31.8-35.4); Mean Corpuscular Hemoglobin 31.2 pg (27.0-31.2); Mean Corpuscular Volume 88.9 fl (81-99); Nucleated Red Blood Cells % 0 %; Platelet Count 291 K/mm3 (142-424); Red Blood Count 4.97 M/mm3 (4.20-5.40); Red Cell Distribution Width-SD 43.5 fL; White Blood Count 12.3 K/mm3 (4.8-10.8)
[2025-06-06 16:10] LABS: Chloride 100 mmol/L (98-107)
[2025-06-06 16:11] LABS: Albumin Level 4.2 g/dl (3.5-5.0); Potassium 3.6 mmoL/L (3.5-5.1); Sodium 143 mmol/L (136-145)
[2025-06-06 16:13] LABS: Alanine Aminotransferase 26 U/L (12-78); Anion Gap 15.6 mEq/L (5-15); Aspartate Amino Transferase 34 U/L (14-36); Blood Urea Nitrogen 4 mg/dl (7-17); Carbon Dioxide 31 mmol/L (22.0-30.0); Creatinine Clearance Estimated 246 mL/min (50-200); Creatinine,Serum 0.50 mg/dl (0.52-1.04); Estimated Glomerular Filt Rate 137 ml/min (>60); GFR (African American) 165 ML/MIN (>60)
[2025-06-06 16:14] LABS: Albumin/Globulin Ratio 1.3 (1.1-1.8); Alkaline Phosphatase 90 U/L (38-126); Bilirubin,Total 0.8 mg/dl (0.2-1.3); Calcium 9.2 mg/dl (8.4-10.2); Globulin 3.2 g/dL (1.3-3.2); Glucose 157 mg/dl (74-100); Total Protein,Serum 7.4 g/dl (6.3-8.2)
[2025-06-06 16:19] LABS: C-Reactive Protein 46.9 mg/L (0-4)
[2025-06-06 17:09] LABS: Hepatitis C Ab Qual. W/ RFX NEGATIVE (Negative)
[2025-06-06 17:24] VITALS: BP 132/85; PULSE 97; RESP 16; TEMP 36.9; O2SAT 96
== END 2025-06-06 17:24 | disposition home or self-care (01) ==
PROVIDERS: Student in an Organized Health Care Education/Training Program; Emergency Provider Student in an Organized Health Care Education/Training Program; PCP Family Medicine
DX: M79.671 Pain in right foot (principal); G62.9 Polyneuropathy, unspecified; F17.210 Nicotine dependence, cigarettes, uncomplicated
CPT/HCPCS: 73590; 73610; 73630; 80053; 85025; 85651; 86140; 86803; 87389; 99284